=== PATIENT | female | born 1960 | race Caucasian/White ===

== ENCOUNTER → 2017-07-23 | Day surgery (SDC) | payer BC ==
[2017-07-17 13:11] VITALS: Ht 162.6 cm; Wt 142.7 kg
[~2017-07-23] VITALS: Ht 162.6 cm; Wt 142.7 kg
[~2017-07-23] MED LIST: ACET500C12 PO; ATEN-175 PO; CYAN100020 PO; ENOX120I SQ; FENTANYL CITRATE INJ 50 MCG/1 ML 2 ML VIAL ONE; FERR1TAB13 PO; FOLI1TAB8 PO; FRS/40 PO; GABA-113 PO; GLIP-199 PO; JANUVIA PO; LIDOCAINE HCL 2% 2 ML VIAL (20MG/ML) ONE; MIDAZOLAM HCL 1 MG/ML 2ML VIAL ONE; NYST80OI TOP; OMEP40CA41 PO; PROPOFOL IV EMULSION 10 MG/ML 20 ML VIAL IV ONE; RANI300T2 PO; SODIUM CHLORIDE 0.9% 500ML 500 ML IV ONE; WARF5TAB90 PO
--- NOTE | 2017-07-23 12:39 | Endo History and Physical ---
History & Physical Date of Service: Jul 23, 2017. Chief Complaint: Referring Physician: History of Present Illness LULU Past Medical History Diabetes, Gastrointestinal Disorder, Pulmonary Emboli, Reflux, Blood Dyscrasias , High Cholesterol, Hypertension, Thyroid Disease Past Surgical History Hx Cardiac Surgery: No Hx Internal Defibrillator: No Hx Pacemaker: No Hx Abdominal Surgery: No Hx Post-Op Nausea and Vomiting: No Hx Cancer Surgery: No Hx Thoracic Surgery: No Hx Orthopedic: Yes (RT CTR) Hx Urinary Tract Surgery: No Family History IBD Social History Smoking Status: Current Every Day Smoker Hx Substance Use: No Hx Alcohol Use: No Allergies Coded Allergies: Moxifloxacin (Verified Allergy, Intermediate, CHEST PAIN RAPID HEART BEAT HIGH BP RASH , 07/17/17) Penicillins (Verified Allergy, Intermediate, HIVES, 07/17/17) Sulfa Drugs (Verified Allergy, Intermediate, HIVES, 07/17/17) Doxycycline (Unverified Adverse Reaction, Intermediate, Pseudo tumor cerebri, 07/17/17) Neomycin (Verified Adverse Reaction, Unknown, ITCHY, 07/17/17) Prednisone (Verified Adverse Reaction, Unknown, TACHYCARDIA, 07/17/17) Uncoded Allergies: DECONGESTANTS (Adverse Reaction, Unknown, TACHYCARDIA, 06/22/15) Current Medications Reported Home Medications Medications Dose Route/Sig Max Daily Dose Days Date Category Dose Instructions Vitamin B12 (Cyanocobalamin) 1,000 Mcg Tab 1 Tab PO DAILY 07/17/17 Reported Nystatin (Nystatin (Topical)) 100,000 Unit/Gm Oin 1 Appln TOP TID PRN 07/17/17 Reported Lasix (Furosemide) 40 Mg Tab 40 Mg PO BID 07/17/17 Reported Coumadin (Warfarin Sodium) 5 Mg Tab 5 Mg PO HS 07/17/17 Reported Tenormin (Atenolol) 100 Mg Tab 50 Mg PO BID 07/17/17 Reported Glipizide Er (Glipizide) 10 Mg Tab 2 Tab PO BID 90 07/17/17 Reported Acetazolamide Er (Acetazolamide) 500 Mg Cap 1 Cap PO TID 07/17/17 Reported [Januvia] 1 Tab PO QAM 07/17/17 Reported UNSURE OF DOSE Folvite (Folic Acid) 1 Mg Tab 1 Mg PO QAM 07/17/17 Reported Zantac (Ranitidine HCl) 300 Mg Tab 300 Mg PO HS 07/17/17 Reported Prilosec (Omeprazole) 40 Mg Cap 40 Mg PO QAM 07/17/17 Reported Neurontin (Gabapentin) 300 Mg Cap 600 Mg PO HS 07/17/17 Reported Kp Ferrous Sulfate (Ferrous Sulfate) 325 Mg Tab 1 Tab PO BID 07/17/17 Reported Vital Signs Weight (Kilograms): 142.73 Height (Feet): 5 Height (Inches): 4 Physical Exam General Appearance: no apparent distress Respiratory/Chest: Auscultation: breath sounds normal Cardiovascular: Heart Auscultation: RRR Abdomen: Inspection & Palpation: soft, non-distended Assessment and Plan Stable for EGD
--- NOTE | 2017-07-23 13:46 | GI REPORT ---
Procedure Date: 07/23/2017 1:28 PM Procedure: Upper GI endoscopy Indications: Iron deficiency anemia Medicines: Monitored Anesthesia Care Complications: No immediate complications. Estimated Blood Loss: Estimated blood loss: none. Procedure: Pre-Anesthesia Assessment: - Prior to the procedure, a History and Physical was performed, and patient medications and allergies were reviewed. The patient is competent. The risks and benefits of the procedure and the sedation options and risks were discussed with the patient. All questions were answered and informed consent was obtained. Patient identification and proposed procedure were verified by the physician and the nurse in the procedure room. Mental Status Examination: alert and oriented. Airway Examination: normal oropharyngeal airway and neck mobility. Respiratory Examination: clear to auscultation. CV Examination: normal. ASA Grade Assessment: III - A patient with severe systemic disease. After reviewing the risks and benefits, the patient was deemed in satisfactory condition to undergo the procedure. The anesthesia plan was to use monitored anesthesia care (MAC). Immediately prior to administration of medications, the patient was re-assessed for adequacy to receive sedatives. The heart rate, respiratory rate, oxygen saturations, blood pressure, adequacy of pulmonary ventilation, and response to care were monitored throughout the procedure. The physical status of the patient was re-assessed after the procedure. After obtaining informed consent, the endoscope was passed under direct vision. Throughout the procedure, the patient's blood pressure, pulse, and oxygen saturations were monitored continuously. The scope was introduced through the mouth, and advanced to the second part of duodenum. The upper GI endoscopy was accomplished without difficulty. The patient tolerated the procedure well. Findings: The examined esophagus was normal. A few, small non-bleeding erosions were found in the gastric body and in the gastric antrum. There were no stigmata of recent bleeding. Biopsies were taken with a cold forceps for histology. Biopsies were taken with a cold forceps for Helicobacter pylori testing. Verification of patient identification for the specimen was done by the physician and nurse using the patient's name and date. The duodenal bulb and second portion of the duodenum were normal. Biopsies were taken with a cold forceps for histology. Impression: - Normal esophagus. - Non-bleeding erosive gastropathy. Biopsied. - Normal duodenal bulb and second portion of the duodenum. Biopsied. Recommendation: - Discharge patient to home. - Await pathology results. - Return to referring physician. Bruna Bonilla MD 07/23/2017 1:46:20 PM This report has been signed electronically. Note Initiated On: 07/23/2017 1:28 PM I attest to the content of the Intraoperative Record and orders documented therein, exceptions below
--- NOTE | 2017-07-23 14:18 | Discharge Instructions ---
Endoscopy Patient Instructions Date / Procedure(s) Performed Jul 23, 2017. EGD Allergy Information Coded Allergies: Moxifloxacin (Verified Allergy, Intermediate, CHEST PAIN RAPID HEART BEAT HIGH BP RASH , 07/23/17) Penicillins (Verified Allergy, Intermediate, HIVES, 07/23/17) Sulfa Drugs (Verified Allergy, Intermediate, HIVES, 07/23/17) Doxycycline (Unverified Adverse Reaction, Intermediate, Pseudo tumor cerebri, 07/23/17) Neomycin (Verified Adverse Reaction, Unknown, ITCHY, 07/23/17) Prednisone (Verified Adverse Reaction, Unknown, TACHYCARDIA, 07/23/17) Uncoded Allergies: DECONGESTANTS (Adverse Reaction, Unknown, TACHYCARDIA, 06/22/15) Discharge Date / Findings Jul 23, 2017. Gastritis Medication Instructions Stopped Medication(s): COUMADIN 07-17-17 BRIDGED WITH LOVENOX 100MG 07-22-17 Provider Instructions Activity Restrictions - No exercising or heavy lifting for 24 hours. - Do not drink alcohol the day of the procedure. - Do not drive a car or operate machinery until the day after the procedure. - Do not make any important decisions or sign important papers in 24 hours after the procedure. Following Day: - Return to full activity which may include returning to work/school. Diet Start your diet with liquids and light foods (jello, soup, juice, toast). Then eat your usual diet if not nauseated. Treatment For Common After Affects For mild abdominal pain, bloating, or excessive gas: - Rest - Eat lightly - Lie on right side Follow-Up Information Follow-up with DR ELLER as scheduled Anesthesia Information What You Should Know You have had a procedure that required some medicine to reduce anxiety and discomfort. This treatment is called moderate sedation. After receiving the treatment, you may be sleepy, but you will be able to breathe on your own. The effects of the treatment may last for several hours. Follow these instructions along with Activity/Diet recommendations noted above: * Do NOT do anything where dizziness or clumsiness would be dangerous. * Rest quietly at home today, then you can be up and about tomorrow. * Have a responsible person stay with you the rest of today. * You may have had an I.V. today. If so, you may take the dressing off later today. Recommendations Call your doctor if: * Trouble breathing * Continuous vomiting for more than 24 hours * Temperature above 101 degrees * Severe abdominal pain or bloating * Pain not relieved by pain medicine ordered * There is increased drainage or redness from any incision * A large amount of rectal bleeding greater than 2-3 tablespoons. (If you had a polyp/s removed or have hemorrhoids, a small amount of blood - from the rectum is to be expected.) * You have any unanswered questions or concerns. IN THE EVENT OF A SERIOUS EMERGENCY, GO TO THE NEAREST EMERGENCY ROOM Your discharge instructions were prepared by provider Bruna Bonilla. Patient Instructions Signature Page Kathryn Lee Patient (or Guardian) Signature/Date: I have read and understand the instructions given to me by my caregivers. Caregiver/RN/Doctor Signature/Date: The above-named patient and/or guardian has received patient instructions on this date. + Original Patient Signature Page (only) stays with chart. Please make copy for patient.
--- NOTE | 2017-07-23 14:40 | Anesthesiology Progress Note ---
Anesthesia Post Op Note Date & Time Jul 23, 2017 at 14:39 Vital Signs Pain Intensity: 0 Vital Signs Past 12 Hours Date Time Temp Pulse Resp B/P (MAP) Pulse Ox O2 Delivery O2 Flow Rate FiO2 07/23/17 14:24 77 16 139/76 (97) 94 Room Air 07/23/17 12:56 36.5 72 18 144/81 (102) 95 Room Air Notes Mental Status: alert / awake / arousable, participated in evaluation Pt Amnestic to Procedure: Yes Nausea / Vomiting: adequately controlled Pain: adequately controlled Airway Patency, RR, SpO2: stable & adequate BP & HR: stable & adequate Hydration State: stable & adequate Anesthetic Complications: no major complications apparent
[2017-07-23 14:56] VITALS: BP 132/49; PULSE 71; O2SAT 92
== END | disposition home or self-care (01) ==
LOC: C.GI 11:34
PROVIDERS: ATTEND Student in an Organized Health Care Education/Training Program
DX: D50.9 Iron deficiency anemia, unspecified (principal); K29.50 Unspecified chronic gastritis without bleeding; K31.9 Disease of stomach and duodenum, unspecified; I10 Essential (primary) hypertension; E66.01 Morbid (severe) obesity due to excess calories; F17.200 Nicotine dependence, unspecified, uncomplicated; E11.9 Type 2 diabetes mellitus without complications; K21.9 Gastro-esophageal reflux disease without esophagitis; Z79.01 Long term (current) use of anticoagulants; Z86.711 Personal history of pulmonary embolism

== ENCOUNTER → 2018-02-10 | Outpatient (CLI) | payer BC ==
[~2018-02-10] MED LIST changes: -FENTANYL CITRATE INJ 50 MCG/1 ML 2 ML VIAL ONE; -LIDOCAINE HCL 2% 2 ML VIAL (20MG/ML) ONE; -MIDAZOLAM HCL 1 MG/ML 2ML VIAL ONE; -PROPOFOL IV EMULSION 10 MG/ML 20 ML VIAL IV ONE; -SODIUM CHLORIDE 0.9% 500ML 500 ML IV ONE
--- NOTE | 2018-02-11 06:41 | PAP/PSG TECHNICIAN REPORT ---
[facility] Enrober Tender Polysomnogram Report Study name: None Report date: 02/11/2018 Study date: 02/10/2018 Referring Physician: Dr. Damon Name: VIC LEE Interpreting Physician: Tali Damon M.D. Date of : 1960 Enrober Tender: Cecil Casas RPSGT. Sex: Female Age: 57 StudyType: PSG Weight: 307 lbs 17 inches Height: 57 years, Height 5' 4.5" Neck Circum: BMI: 51.88 Medications: JANUVIA 100 MG, TRAZODONE 50 MG, LASIX 40 MG, GLUCOTROL 10 MG, PRILOSEC 40 MG, RANITIDINE HCL 300 MG, FOLIC ACID 800 MCG, TENORMIN 100 MG, COUMADIN 5 MG, Patient History PATIENT HAS HISTORY OF HTN, WITNESSED APNEAS, DAYTIME SLEEPINESS AND IRREGULAR SLEEP SCHEDULE. SHE GENERALLY DOESN'T FALL ASLEEP UNTIL 3 IN THE MORNING. SHE TAKES NAPS EVERY AFTERNOON. SHE IS HERE FOR AN EVALUATION FOR FÉLIX. ESS = 10 RM 6 Parameters Monitored NPSG: E1-M2, E2-M1, Fp1-M2, Fp2-M1, F3-M2, F4-M2, F4-M1, C3-M2, C4-M2, C4-M1, O1-M2, O2-M2, O2-M1, T3-M2, T4-M1, P3-M2, P4-M1, CHIN1, CHIN2, HR, EKG, Legs, PFLOW, SNOR, FLOW, CFLOW, Tidal Volume, THOR, ABDO, SpO2, PLTH, CPRESS, ETCO2 Wave, ETCO2, pH Sleep Architecture Sleep Stages Time at Lights Off 10:51:50 PM STAGES Time (min.) TST (%) Time at Lights On 5:37:50 AM Wake 274.5 -- Total Recording Time (TRT) 407.00 min. N1 16.5 13 Total Sleep Period (TSP) 288.5 min. N2 44.5 34 Total Sleep Time (TST) 131.5min. N3 47.5 36 Awake Time 275.5 min. REM 23.0 17 Wake after Sleep Onset 158.5 min. Sleep Efficiency (SE) 32 % Sleep Onset Latency (PRIMO) 116.0 min. Number of Stage 1 Shifts None Awakenings 22 Stage Changes 58 Number of REM periods 1 REM 23.0 17 REM Latency 217.0 min. NREM 108.5 83 Body Position Analysis Supine Right Left Side Prone Vertical Total Sleep Time (min.) 374.6 0.0 9.5 9.50 0.0 0.0 Total Sleep Time (%) 93% 0% 7% 7 0% N/A% Total Sleep Time REM (min.) 23.0 0.0 0.0 None 0.0 0.0 Total Sleep Time NREM (min.) 99.0 0.0 9.5 None 0.0 0.0 Intermittent Wake (min.) 252.6 0.0 21.9 None 0.0 0.0 Total Sleep Period (%) 89% None None None None None Arousals Myoclonus (PLM) * Events Count Index Events Count Index Spontaneous 18 8 Events Awake (PLMW) 243 53.1 Respiratory 6 2.7 Events Asleep w/ Arousal (PLMA) 8 3.7 PLM 8 4 Events Asleep w/o Arousal (PLMS) 16 7.3 Snoring 1 0 Total Asleep 24 11.0 Total 33 15 Total 267 39 Respiratory Analysis * CA OA MA CH H RERA Total Count 0 0 0 0 99 1 99 Index 0.0 0.0 0.0 0 45.2 0 45.6 Mean Duration 0.0 0.0 0.0 0.00 15.0 11.9 15.0 Longest Duration 0.0 0.0 0.0 0.00 0.0 11.9 23.4 Respiratory Event Summary Total Supine ~Supine Right Left Prone REM NREM Apneas Count 0 0 0 N/A 0 N/A 0 0 Index 0.0 0 0 N/A 0.0 N/A 0 0 Hypopneas (4% Desat) Count 99 96 3 N/A 3 N/A 29 70 Index 45.2 47.2 19 N/A 18.9 N/A 75.7 38.7 Apneas & All Hypopneas Count 99 96 3 N/A 3 N/A 29 70 Index 45.2 47 19 N/A 19 N/A 75.7 38.7 Respiratory Events (Shoe Packer+All Hyp+RERA) Count 99 96 4 N/A 4 N/A 29 70 Index 45.6 47 25 N/A 25.3 N/A 75.7 39.3 Respiratory Related Arousal Count 6 96 2 N/A 2 N/A 0 6 Index 2.7 2 13 N/A 13 N/A 0 3 Snoring Analysis Supine Right Left Prone REM NREM Total Snore duration 0.6 min Snores count 19 N/A 1 N/A 2 18 20 Snore mean duration 1.8 Sec Snores index 9 N/A 6 N/A 5.2 10.0 9.1 TST with snoring (%) 0.4% SpO2 Analysis Total REM NREM Awake <50% 0.0 min. 0.0 min. 0.0 min. 0.0 min. 51 - 60% 0.0 min. 0.0 min. 0.0 min. 0.0 min. 61 - 70% 0.5 min. 0.5 min. 0.0 min. 0.0 min. 71 - 80% 33.4 min. 21.2 min. 5.9 min. 6.3 min. 81 - 90% 337.0 min. 1.3 min. 101.0 min. 234.7 min. 91 - 100% 2.9 min. 0.0 min. 0.0 min. 2.9 min. Average 84 75 83 85 Minimum SpO2 69 69 76 73 Desaturation Event Index 26.2 80.9 44.2 14.9 # Desat. Events below 89% 177 31 79 67 Time(%) with Saturation below 89% 96.3 6.2 28.6 61.6 Time(min.) with Saturation below 89% 360.1 23.0 106.9 230.2 Heart Rate Analysis End Tidal CO2 Analysis Min (bpm) Max (bpm) Average (bpm) TSP (mins) % of TSP Awake 34 127 72 Above 55 mmHg 0.0 0.0 NREM 55 127 64 50-55 mmHg 0.2 0.1 REM 59 74 67 45-50 mmHg 0.9 0.7 Overall 55 127 65 40-45 mmHg 20.8 15.8 35-40 mmHg 67.1 51.0 30-35 mmHg 33.9 25.8 Average ETCO2 0.2 Supplemental O2 Values Minimum O2 level: None Value Start Time End Time Enrober Tender Comments Mrs. Lee slept in the left and supine positions. No cardiac arrhythmia noted. Leg movements noted. No bruxism noted. Snoring was noted and scored as a 2 on a scale of 1 through 5. (0=no snoring, 5=snoring loud enough to be heard through a closed door or down the rice way) Mrs. Lee awoke to use the restroom 3 times during the night. Mrs. Lee stated I did not sleep as well as I do when I am in my own bed. The final report will be interpreted and signed by a sleep physician. The completed physician report will then be placed in the patient medical record. Therapy (cm H2O) 0 TIB (min.) 406.0 TST (min.) 131.5 Sleep Onset (min.) 116.0 REM Onset From Sleep (min.) 217.0 Sleep Efficiency % 32 Wakefulness (%) 68 Wakefulness (min.) 275.5 NREM 1 (%) 13 NREM 1 (min.) 16.5 NREM 2 (%) 34 NREM 2 (min.) 44.5 NREM 3 (%) 36 NREM 3 (min.) 47.5 REM (%) 17 REM (min.) 23.0 # Arousals 33 Arousal Index 15 # Snore 20 Snore Index 9.1 AHI 45.2 AHI Supine 47 AHI Non-Supine 19 NREM AHI 38.7 REM AHI 75.7 RDI 45.6 # Obstructive Apnea 0 # Central Apnea 0 # Mixed Apnea 0 # Hypopneas 99 RERAs 1 Total Respiratory Events 101 Time Below SpO2 89% (min.) 129.9 Mean NREM SpO2 (%) 83 Mean REM SpO2 (%) 75 Mean Sleep SpO2 (%) 82 Min NREM SpO2 (%) 76 Min REM SpO2 (%) 69 Position Supine (min.) 374.6 Position Non-supine (min.) 9.5 LM Index Sleep 11.0 LM Index NREM 11.6 LM Index REM 7.8 Mean Heart Rate (bpm) 65 Min Heart Rate (bpm) 55
== END | disposition home or self-care (01) ==
LOC: C.NEUR 21:00
PROVIDERS: ATTEND Internal Medicine
DX: G47.33 Obstructive sleep apnea (adult) (pediatric) (principal)

== ENCOUNTER 2018-12-10 16:23 | Inpatient (IN) ==
--- OUTSIDE RECORDS SUMMARY | 2018-12-10 16:25 | External Medical Summary | Continuity of Care Document ---
:1960 Author Name Lisa Krause, Provider Address Unavailable Unavailable , Care Team Providers Name Role Phone Nica Krause, Deshawn Unavailable [email or web address] Active medical history not documented Allergies and Adverse Reactions Allergy history not documented Medications Medications not documented Procedures Procedures not documented Immunizations Immunizations not documented Plan of Treatment Planned Observations Planned Goals not documented Results No Known Results Results not documented
[2018-12-10] MEDS ORDERED: ASPIRIN CHEW 324 MG PO STA (16:50)
[2018-12-10] MEDS ORDERED: SODIUM CHLORIDE 0.9% 1000ML 1,000 ML IV SCH (17:00)
--- NOTE | 2018-12-10 17:16 | XRay Report ---
XR chest 1V portable CLINICAL HISTORY: 58 years-old Female presenting with CVA Sx, dizziness and left-sided immobility. TECHNIQUE: Portable upright AP view of the chest was obtained. COMPARISON: 09/09/2009. FINDINGS: Atherosclerosis of the aortic arch. Cardiac silhouette normal in size. Mildly coarsened lung markings . Mild pulmonary vascular prominence. No focal lung opacity. No large effusion or pneumothorax. Bradshaw us structures normal. Upper abdomen normal. IMPRESSION: 1. Mild volume overload and mild congestive change suggested. No gee pulmonary edema. Electronically signed by: Raman Ly M.D. 12/10/2018 5:15 PM
[2018-12-10 17:42] LABS: Alanine Aminotransferase 22 U/L (12-78); Albumin Level 3.5 gm/dl (3.4-5.0); Alkaline Phosphatase 84 U/L (45-117); Aspartate Aminotransferase 19 U/L (15-37); BUN Creatinine Ratio 10.5 (10-20); Bilirubin,Total 0.9 mg/dl (0.2-1); Blood Urea Nitrogen 9 mg/dl (7-18); Calcium 8.8 mg/dl (8.5-10.1); Carbon Dioxide 27 mmol/L (21-32); Chloride 108 mmol/L (98-107); Creatinine Clr Calc Pharmacy 97.6 ml/min; Est GFR (African American) 92.1; Est GFR (Non-African American) 79.4; Globulin 3.6 gm/dl (2.5-4.0); Glucose 144 mg/dl (70-99); Potassium 3.2 mmol/L (3.5-5.1); Sodium 140 mmol/L (136-145); Total Protein 7.1 gm/dl (6.4-8.2); Troponin I < 0.015 ng/ml (0-0.045)
[2018-12-10 17:48] LABS: Hematocrit (blood only) 51.3 % (37-47); Hemoglobin 18.4 g/dL (12.0-16.0); Mean Corpuscular Hgb Conc 35.9 g/dL (32-36); Mean Corpuscular Volume 88.9 fL (80-100); Mean Platelet Volume 10.9 fL (7.4-10.4); Platelet Count 98 K/uL (130-400); RDW Coefficient of Variation 13.7 % (11.5-14.5); RDW Standard Deviation 44.2 fL (36.4-46.3); Red Blood Count 5.77 M/uL (4.2-5.4); White Blood Count 5.69 K/uL (4.8-10.8)
[2018-12-10 17:50] LABS: Basophils # (auto) 0.01 K/uL (0-0.2); Basophils % (auto) 0.2 %; Eosinophils # (auto) 0.05 K/uL (0-0.5); Eosinophils % (auto) 0.9 %; Immature Granulocytes # (auto) 0.02 K/uL (0.00-0.02); Immature Granulocytes % (auto) 0.4 %; Lymphocytes % (auto) 17.6 %; Monocytes # (auto) 0.25 K/uL (0.11-0.59); Monocytes % (auto) 4.4 %; Neutrophils # (auto) 4.36 K/uL (1.4-6.5); Neutrophils % (auto) 76.5 %
[2018-12-10] MEDS ORDERED: OPTIRAY 320 125ml IV PRN (18:10)
--- NOTE | 2018-12-10 18:19 | CT Scan Report ---
CT OF THE HEAD WITHOUT CONTRAST CLINICAL HISTORY: Stroke evaluation COMPARISON STUDY: Head CT March 27, 2011. TECHNIQUE: Helical axial images of the head were obtained without IV contrast. Automated exposure con trol was utilized for the study. A dose lowering technique was utilized adhering to the principles o f ALARA. FINDINGS: No acute intracranial hemorrhage, midline shift or mass effect is present. The ventricular system is unremarkable. The basilar cisterns are patent. No extra-axial collections are present. Ther e are no findings to suggest acute dural sinus thrombosis or acute territorial infarct. No significan t calvarial abnormalities are present. Visualized portions of the sinuses and mastoid air cells are c lear. IMPRESSION: No acute intracranial findings. Electronically signed by: Da Gregory M.D. 12/10/2018 6:18 PM
--- NOTE | 2018-12-10 18:30 | CT Scan Report ---
CT angio neck with con CLINICAL HISTORY: 58 years-old Female presenting with stuttering cva sx. TECHNIQUE: Multidetector CT angiography of the neck was performed after the administration of intrave nous contrast. 3-D volumetric and/or maximum intensity projection (MIP) images were subsequently jameson nstructed for review. IV contrast: 119 mL of Optiray 320. One or more dose lowering techniques were u sed consistent with the principles of ALARA (as low as reasonably achievable), including automatic ex posure control, mA or kV adjustment to individual patient size, and/or use of iterative reconstructio n. Stenosis measurements were based on NASCET-like criteria (distal lumen diameter as the denominator for stenosis measurement). COMPARISON: None. CT DOSE (mGy.cm): The estimated cumulative dose is 1141.87 mGy.cm. FINDINGS: Safety Attendant topogram: Unremarkable. Aortic arch: Atherosclerosis of the three-vessel aortic arch with patent origins of the branch vessel s. Innominate artery: Mild stenosis of the origin of the right innominate artery. Right subclavian artery: Patent. Right common carotid artery: Patent. Right internal and external carotid arteries: Calcified atherosclerotic plaque at the carotid bifurca tion. This results in approximately 50% stenosis of the origin of the right external carotid artery. No significant stenosis of the origin or course of the right internal carotid artery. Left common carotid artery: Mild atherosclerotic plaque at the distal course without significant sten osis. Left internal and external carotid arteries: Calcified and noncalcified atherosclerotic plaque at the carotid bifurcation. This results in approximately 50% stenosis of the origin of the left external c arotid artery with the remainder of the left ECA course widely patent. There is approximately 25% shakila nosis of the origin and proximal portion of the left internal carotid artery due to calcified and non calcified atherosclerotic plaque. Left subclavian artery: Atherosclerotic plaque along the proximal course with less than 25% stenosis. Vertebral arteries: Codominant vertebral arteries. Origins and courses of the bilateral vertebral art eries patent. Other: Limited intracranial evaluation within normal limits. Soft tissues of the neck normal allowing for the phase of contrast. Normal cervical spine. Lung apices clear. IMPRESSION: 1. Atherosclerotic plaque results in approximately 50% stenosis of the origins of the bilateral ECAs . This is unlikely to be of clinical concern. 2. No significant stenosis of the origin or course of the right ICA. 3. Approximately 25% stenosis of the origin of the left ICA. This is unlikely to be hemodynamically significant. 4. No dissection or focal vessel occlusion. Electronically signed by: Raman Ly M.D. 12/10/2018 6:28 PM
--- NOTE | 2018-12-10 18:30 | CT Scan Report ---
CT angio head w con CLINICAL HISTORY: 58 years-old Female presenting with stuttering cva sx. TECHNIQUE: Multidetector CT angiography of the head was performed after the administration of intrave nous contrast. 3-D volumetric and/or maximum intensity projection (MIP) images were subsequently jameson nstructed for review. IV contrast: 119 mL of Optiray 320. One or more dose lowering techniques were u sed consistent with the principles of ALARA (as low as reasonably achievable), including automatic ex posure control, mA or kV adjustment to individual patient size, and/or use of iterative reconstructio n. COMPARISON: None. CT DOSE (mGy.cm): The estimated cumulative dose is 1141.87. FINDINGS: Colon Therapist topogram: Unremarkable. Anterior circulation: Atherosclerosis of the cavernous segments of the internal carotid arteries. Int racranial portions of the internal carotid arteries patent to the level of the termini. Anterior cere bral arteries patent. Middle cerebral arteries patent. Anterior communicating artery patent. Posterior circulation: Codominant vertebral arteries. Intradural portions of the vertebral arteries p atent. Posterior inferior cerebellar arteries patent. Basilar artery patent. Anterior inferior cerebe llar arteries poorly visualized. Superior cerebellar arteries patent. Posterior cerebral arteries pat ent. Posterior communicating arteries are hypoplastic or aplastic. Dural venous sinuses: Patent. Other: Allowing for the phase of contrast, brain parenchyma within normal limits. Calvarium intact. IMPRESSION: 1. No evidence of aneurysm, focal vessel occlusion, or significant stenosis of the intracranial tianna francois. Electronically signed by: Raman Ly M.D. 12/10/2018 6:29 PM
[2018-12-10 19:14] LABS: INR 2.1 (0.9-1.1); Partial Thromboplastin Ratio 1.5; Partial Thromboplastin Time 39.6 Seconds (21.0-31.0); Prothrombin Time 20.8 Seconds (9.0-12.0)
--- NOTE | 2018-12-10 20:08 | Emergency Department Note ---
Entered by Reg Henderson acting as a scribe for Gina Browne MD History of Present Illness General Chief complaint: Stroke/CVA Symptoms Stated complaint: STROKE SX Source: patient History of Present Illness Onset (ago): hour(s) (this morning at 11:00) Location: left (arm and leg) Pain Consistency: + intermittent Quality: + other (left sided weakness) Associated symptoms: + other (speech difficulties, dizziness, nausea) The patient is a 58 year old female who presents to the Emergency Room with complaints of intermittent left upper and left lower extremity weakness. The patient reports that this morning at 11:00, she developed left arm and leg weakness along with dizziness and nausea. She states that this resolved but returned at 13:00 and persisted until EMS arrived, by which time her symptoms had all resolved. The patient reports that 4 days ago she developed a similar episode of left-sided weakness that only lasted a few minutes. She states that today she has also had some difficulties with speech. She states that she is on warfarin for a clotting disorder but does not take aspirin. Her last INR was 1.9. She states that she smokes 1.5 packs of cigarettes daily. Home Medications Home Medications Medication Instructions Recorded Confirmed Type Januvia 100 mg PO DAILY 12/10/18 12/10/18 History acetazolamide 500 mg PO DAILY 12/10/18 12/10/18 History amlodipine 2.5 mg PO .DAILY IN AFTERNOON 12/10/18 12/10/18 History atenolol 50 mg PO BID 12/10/18 12/10/18 History cyanocobalamin (vitamin B-12) 1,000 mcg PO DAILY 12/10/18 12/10/18 History folic acid 1 mg PO DAILY 12/10/18 12/10/18 History furosemide 40 mg PO BID 12/10/18 12/10/18 History nystatin 1 applic TOPICAL BID PRN 12/10/18 12/10/18 History omeprazole 40 mg PO QAM 12/10/18 12/10/18 History ranitidine HCl 300 mg PO HS 12/10/18 12/10/18 History warfarin 2.5 mg PO .ONCE WEEKLY 12/10/18 12/10/18 History warfarin 5 mg PO [id number] 12/10/18 12/10/18 History aspirin [Ecotrin Low Strength] 81 mg PO QAM 30 Days #30 tab 12/12/18 Rx atorvastatin 40 mg PO QAM 40 Days #40 tab 12/12/18 Rx Allergies Allergy/AdvReac Type Severity Reaction Status Date / Time moxifloxacin Allergy Intermediate CHEST PAIN Verified 12/10/18 19:03 RAPID HEART BEAT HIGH BP RASH Penicillins Allergy Intermediate HIVES Verified 12/10/18 19:03 Sulfa (Sulfonamide Allergy Intermediate HIVES Verified 12/10/18 19:03 Antibiotics) doxycycline AdvReac Intermediate Pseudo Unverified 12/10/18 19:03 tumor cerebri neomycin AdvReac Unknown ITCHY Verified 12/10/18 19:03 prednisone AdvReac Unknown TACHYCARDIA Verified 12/10/18 19:04 DECONGESTANTS AdvReac Unknown TACHYCARDIA Uncoded 12/10/18 19:04 Past Med/Surg History Medical History Sleep apnea (Chronic) Tobacco use (Chronic) Pulmonary hypertension (Chronic) MTHFR gene mutation (Chronic) Pseudotumor cerebri (Chronic) History of pulmonary embolism (Chronic) Dyslipidemia (Chronic) Diabetes mellitus, type II (Chronic) Hypertension (Chronic) Surgical History History of carpal tunnel surgery (Chronic) Family History Other Diabetes Hypertension Social History Preferred Language: Slovak Communication Ability: Effective Spool 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 and A total of 10 systems reviewed and were otherwise negative Physical Exam Vital Signs Vital Signs - 24 hr 12/10/18 16:34 12/10/18 16:37 12/10/18 16:50 Temperature 36.5 C Temperature Source Oral Sepsis Recent Fever Within 48 Hours No Sepsis New/Unexplained Change in Mental Status No Sepsis Action Taken by Nursing No Action Required Pulse Rate 72 70 72 Pulse Rate from SpO2 Sensor 72 72 Pulse Rhythm Respiratory Rate 12 16 22 Respiratory Effort / Characteristics Non-Labored Spontaneous Respiratory Depth Normal Respiratory Pattern Regular Blood Pressure 151/71 H 151/71 H Blood Pressure Mean 97 97 Pulse Oximetry 94 94 93 Oxygen Delivery Method Room Air 12/10/18 16:55 12/10/18 16:56 12/10/18 17:05 Temperature Temperature Source Sepsis Recent Fever Within 48 Hours Sepsis New/Unexplained Change in Mental Status Sepsis Action Taken by Nursing Pulse Rate 70 74 Pulse Rate from SpO2 Sensor 73 Pulse Rhythm Regular Respiratory Rate 18 15 Respiratory Effort / Characteristics Respiratory Depth Respiratory Pattern Blood Pressure Blood Pressure Mean Pulse Oximetry 91 92 92 Oxygen Delivery Method Room Air Room Air 12/10/18 17:06 12/10/18 17:08 12/10/18 17:31 Temperature Temperature Source Sepsis Recent Fever Within 48 Hours Sepsis New/Unexplained Change in Mental Status Sepsis Action Taken by Nursing Pulse Rate 72 71 71 Pulse Rate from SpO2 Sensor 72 72 72 Pulse Rhythm Respiratory Rate 18 27 H 14 Respiratory Effort / Characteristics Respiratory Depth Respiratory Pattern Blood Pressure 171/81 H 152/74 H Blood Pressure Mean 111 100 Pulse Oximetry 92 92 92 Oxygen Delivery Method 12/10/18 18:00 12/10/18 18:01 12/10/18 19:00 Temperature Temperature Source Sepsis Recent Fever Within 48 Hours Sepsis New/Unexplained Change in Mental Status Sepsis Action Taken by Nursing Pulse Rate 73 73 76 Pulse Rate from SpO2 Sensor 73 72 75 Pulse Rhythm Respiratory Rate 25 H 11 L 20 Respiratory Effort / Characteristics Respiratory Depth Respiratory Pattern Blood Pressure 163/73 H 157/76 H Blood Pressure Mean 103 103 Pulse Oximetry 92 93 92 Oxygen Delivery Method Room Air 12/10/18 19:30 12/10/18 19:41 Temperature Temperature Source Sepsis Recent Fever Within 48 Hours Sepsis New/Unexplained Change in Mental Status Sepsis Action Taken by Nursing Pulse Rate 76 77 Pulse Rate from SpO2 Sensor 75 77 Pulse Rhythm Respiratory Rate 21 16 Respiratory Effort / Characteristics Respiratory Depth Respiratory Pattern Blood Pressure 186/73 H Blood Pressure Mean 110 Pulse Oximetry 90 95 Oxygen Delivery Method Room Air Vital signs reviewed. General: Well-appearing female, in no significant distress. Smells of tobacco. HEENT: No scleral icterus, PERRLA, neck supple. Atraumatic. Cardiovascular: Regular rate and rhythm, no extra sounds. Pulmonary: Clear to auscultation bilaterally, normal work of breathing. Abdomen: Obese. Soft, nontender, nondistended, positive bowel sounds. Musculoskeletal: Atraumatic, no peripheral edema. Neurologic: Patient awake alert and oriented x 3, equal strength in all 4 extremities. Equal box spinner strength. Cranial nerves 2 through 12 grossly intact. [id number] intact. No pronator drift. Skin: Warm, dry, no rash Course 1646: The patient was evaluated in room B4A. A complete history and physical examination were performed. 1901: I consulted Meghana Urbina, ERIK: [facility] Hospitalist. The patient will be reevaluated for hospitalization under Dr. Torres. Administered Medications Discontinued Medications Acetazolamide (Diamox Sequels) 500 mg PO DAILY [facility] Stop: 01/10/19 08:59 Last Admin: 12/12/18 08:15 Dose: 500 mg Documented by: [id number] Admin: 12/10/18 22:48 Dose: 500 mg Documented by: [id number] Amlodipine Besylate (Norvasc) 2.5 mg PO DAILY@1400 [facility] Stop: 01/09/19 21:23 Last Admin: 12/12/18 13:35 Dose: 2.5 mg Documented by: [id number] Admin: 12/11/18 13:43 Dose: 2.5 mg Documented by: [id number] Admin: 12/10/18 22:47 Dose: 2.5 mg Documented by: [id number] Aspirin (Aspirin) 324 mg PO NOW [facility] Stop: 12/10/18 16:51 Last Admin: 12/10/18 17:38 Dose: 324 mg Documented by: [id number] [facility]rin [facility]ab) [facility] Stop: 01/10/19 08:59 Last Admin: 12/12/18 08:15 Dose: 81 mg Documented by: [id number] Admin: 12/11/18 08:04 Dose: 81 mg Documented by: [id number] Atenolol (Tenormin) 50 mg PO BID [facility] Stop: 01/09/19 21:23 Last Admin: 12/12/18 08:15 Dose: 50 mg Documented by: [id number] Admin: 12/11/18 20:46 Dose: 50 mg Documented by: [id number] Admin: 12/11/18 08:04 Dose: 50 mg Documented by: [id number] Admin: 12/10/18 22:46 Dose: 50 mg Documented by: [id number] Atorvastatin Calcium (Lipitor) [facility] Stop: 01/10/19 08:59 Last Admin: 12/11/18 08:04 Dose: 10 mg Documented by: [id number] Atorvastatin Calcium (Lipitor) 40 mg PO QAM [facility] Stop: 01/11/19 08:59 Last Admin: 12/12/18 08:15 Dose: 40 mg Documented by: [id number] Cyanocobalamin (Vitamin B-12) 1,000 mcg PO DAILY [facility] Stop: 01/10/19 08:59 Last Admin: 12/12/18 08:15 Dose: 1,000 mcg Documented by: [id number] Admin: 12/11/18 08:04 Dose: 1,000 mcg Documented by: [id number] Folic Acid (Folvite) 1 mg PO DAILY [facility] Stop: 01/10/19 08:59 Last Admin: 12/12/18 08:15 Dose: 1 mg Documented by: [id number] Admin: 12/11/18 08:04 Dose: 1 mg Documented by: [id number] Furosemide (Lasix) 40 mg PO BID [facility] Stop: 01/09/19 21:23 Last Admin: 12/12/18 08:15 Dose: 40 mg Documented by: [id number] Admin: 12/11/18 20:47 Dose: 40 mg Documented by: [id number] Admin: 12/11/18 08:04 Dose: 40 mg Documented by: [id number] Admin: 12/10/18 22:45 Dose: 40 mg Documented by: [id number] Gadobutrol (Gadavist 65ml) 11.5 ml IV ONCE PRN PRN Reason: Interaction Checking Stop: 12/15/18 12:40 Last Admin: 12/11/18 12:42 Dose: 11.5 ml Documented by: [id number] Sodium Chloride (Nss 1000ml) 1,000 mls @ 100 mls/hr IV .Q10H [facility] Stop: 01/09/19 16:59 Last Infusion: 12/10/18 21:09 Dose: 0 mls/hr Documented by: [id number] Admin: 12/10/18 17:40 Dose: 100 mls/hr Documented by: [id number] Insulin Aspart (Novolog Flexpen) 0 units SC ACHS [facility] Stop: 01/09/19 21:23 Last Admin: 12/12/18 11:59 Dose: 4 units Documented by: [id number] Cosigned by: [id number] Admin: 12/12/18 08:16 Dose: 3 units Documented by: [id number] Cosigned by: [id number] Admin: 12/11/18 20:35 Dose: Not Given Documented by: [id number] Cosigned by: [id number] Admin: 12/11/18 17:34 Dose: 4 units Documented by: [id number] Cosigned by: [id number] Admin: 12/11/18 13:44 Dose: 3 units Documented by: [id number] Cosigned by: [id number] Admin: 12/11/18 08:04 Dose: Not Given Documented by: [id number] Cosigned by: [id number] Admin: 12/10/18 22:43 Dose: Not Given Documented by: [id number] Cosigned by: [id number] Ioversol (Optiray 320 125ml) 119 ml IV ONCE PRN PRN Reason: Interaction Checking Stop: 12/14/18 18:09 Last Admin: 12/10/18 18:10 Dose: 1 ml Documented by: [id number] Miscellaneous Information (Discharge, Stroke Patient) 1 ea N/A NOW [facility] Stop: 12/12/18 15:59 Last Admin: 12/12/18 16:27 Dose: 1 ea Documented by: [id number] Pantoprazole Sodium (Protonix) 40 mg PO QAM [facility] Stop: 01/10/19 08:59 Last Admin: 12/12/18 08:15 Dose: 40 mg Documented by: [id number] Admin: 12/11/18 08:04 Dose: 40 mg Documented by: [id number] Potassium Chloride (Klor-Con M20) 40 meq PO NOW [facility] Stop: 12/10/18 20:18 Last Admin: 12/10/18 21:05 Dose: 40 meq Documented by: [id number] Potassium Chloride (Klor-Con M10) 40 meq PO NOW [facility] Stop: 12/11/18 05:23 Last Admin: 12/11/18 06:01 Dose: 40 meq Documented by: [id number] Ranitidine HCl (Zantac) 300 mg PO [facility] Stop: 01/09/19 21:23 Last Admin: 12/11/18 20:45 Dose: 300 mg Documented by: [id number] Admin: 12/10/18 22:46 Dose: 300 mg Documented by: [id number] Warfarin Sodium (Coumadin) 5 mg PO [id number]@1600 [facility] Stop: 01/09/19 21:23 Last Admin: 12/12/18 15:59 Dose: 5 mg Documented by: [id number] Admin: 12/11/18 15:36 Dose: 5 mg Documented by: [id number] Admin: 12/10/18 22:47 Dose: 5 mg Documented by: [id number] Medical Decision Making Differential Diagnosis Differential Diagnosis includes but is not limited to ischemic stroke, hemor rhagic stroke, bells palsy, mass, neoplasm, migraine headache, seizure, subarachnoid hemorrhage, TIA, and transient global amnesia. Medical Records Attestation: I reviewed the patient's medical records. Home Medications Current Medication List: was personally reviewed by me Laboratory Data Attestation: I reviewed the patient's lab results. Result diagrams: 12/12/18 06:05 12/12/18 06:05 Lab Results 12/10/18 12/10/18 12/10/18 Range/Units 16:50 16:50 16:50 WBC 5.69 (4.8-10.8) K/uL RBC 5.77 H (4.2-5.4) M/uL Hgb 18.4 H (12.0-16.0) g/dL Hct 51.3 H (37-47) % MCV 88.9 (80-100) fL MCH 31.9 (25-34) pg MCHC 35.9 (32-36) g/dL RDW Std Deviation 44.2 (36.4-46.3) fL RDW Coeff of Teodoro 13.7 (11.5-14.5) % Plt Count 98 L (130-400) K/uL MPV 10.9 H (7.4-10.4) fL Immature Gran % (Auto) 0.4 % Neut % (Auto) 76.5 % Lymph % (Auto) 17.6 % [place] % (Auto) 4.4 % Eos % (Auto) 0.9 % Baso % (Auto) 0.2 % Immature Gran # (Auto) 0.02 (0.00-0.02) K/uL Neut # (Auto) 4.36 (1.4-6.5) K/uL Lymph # (Auto) 1.00 L (1.2-3.4) K/uL [place] # (Auto) 0.25 (0.11-0.59) K/uL Eos # (Auto) 0.05 (0-0.5) K/uL Baso # (Auto) 0.01 (0-0.2) K/uL PT Cancelled INR Cancelled APTT Cancelled PTT Ratio Cancelled Sodium 140 (136-145) mmol/L Potassium 3.2 L (3.5-5.1) mmol/L Chloride 108 H (98-107) mmol/L Carbon Dioxide 27 (21-32) mmol/L Anion Gap 5.0 (3-11) BUN 9 (7-18) mg/dl Creatinine 0.82 (0.6-1.2) mg/dl Est Cr Clr Drug Dosing 97.6 ml/min Est GFR ( Amer) 92.1 Est GFR (Non-Af Amer) 79.4 BUN/Creatinine Ratio 10.5 (10-20) Glucose 144 H (70-99) mg/dl Calcium 8.8 (8.5-10.1) mg/dl Magnesium 2.0 (1.8-2.4) mg/dl Total Bilirubin 0.9 (0.2-1) mg/dl AST 19 (15-37) U/L ALT 22 (12-78) U/L Alkaline Phosphatase 84 (45-117) U/L Troponin I < 0.015 (0-0.045) ng/ml Total Protein 7.1 (6.4-8.2) gm/dl Albumin 3.5 (3.4-5.0) gm/dl Globulin 3.6 (2.5-4.0) gm/dl Albumin/Globulin Ratio 1.0 (0.9-2) Specimen Hemolysis Urine Color Urine Appearance (Clear) Urine pH (4.5-7.5) Ur Specific [place] (1.000-1.030) Urine Protein (Negative) Urine Glucose (UA) (Negative) Urine Ketones (Negative) Urine Blood (Negative) Urine Nitrite (Negative) Urine Bilirubin (Negative) Urine Urobilinogen (Negative) Ur Leukocyte Esterase (Negative) 12/10/18 12/10/18 Range/Units 17:05 18:44 WBC (4.8-10.8) K/uL RBC (4.2-5.4) M/uL Hgb (12.0-16.0) g/dL Hct (37-47) % MCV (80-100) fL MCH (25-34) pg MCHC (32-36) g/dL RDW Std Deviation (36.4-46.3) fL RDW Coeff of Teodoro (11.5-14.5) % Plt Count (130-400) K/uL MPV (7.4-10.4) fL Immature Gran % (Auto) % Neut % (Auto) % Lymph % (Auto) % [place] % (Auto) % Eos % (Auto) % Baso % (Auto) % Immature Gran # (Auto) (0.00-0.02) K/uL Neut # (Auto) (1.4-6.5) K/uL Lymph # (Auto) (1.2-3.4) K/uL [place] # (Auto) (0.11-0.59) K/uL Eos # (Auto) (0-0.5) K/uL Baso # (Auto) (0-0.2) K/uL PT 20.8 H INR 2.1 H APTT 39.6 H PTT Ratio 1.5 Sodium (136-145) mmol/L Potassium (3.5-5.1) mmol/L Chloride (98-107) mmol/L Carbon Dioxide (21-32) mmol/L Anion Gap (3-11) BUN (7-18) mg/dl Creatinine (0.6-1.2) mg/dl Est Cr Clr Drug Dosing ml/min Est GFR ( Amer) Est GFR (Non-Af Amer) BUN/Creatinine Ratio (10-20) Glucose (70-99) mg/dl Calcium (8.5-10.1) mg/dl Magnesium (1.8-2.4) mg/dl Total Bilirubin (0.2-1) mg/dl AST (15-37) U/L ALT (12-78) U/L Alkaline Phosphatase (45-117) U/L Troponin I (0-0.045) ng/ml Total Protein (6.4-8.2) gm/dl Albumin (3.4-5.0) gm/dl Globulin (2.5-4.0) gm/dl Albumin/Globulin Ratio (0.9-2) Specimen Hemolysis Urine Color Yellow Urine Appearance Clear (Clear) Urine pH 7.0 (4.5-7.5) Ur Specific [place] 1.012 (1.000-1.030) Urine Protein Negative (Negative) Urine Glucose (UA) Negative (Negative) Urine Ketones Negative (Negative) Urine Blood Negative (Negative) Urine Nitrite Negative (Negative) Urine Bilirubin Negative (Negative) Urine Urobilinogen Negative (Negative) Ur Leukocyte Esterase Negative (Negative) Imaging Data Radiologist's Impression: Radiology results as stated below per my review and the radiologist's interpretation: XR chest 1V portable CLINICAL HISTORY: 58 years-old Female presenting with CVA Sx, dizziness and left-sided immobility. TECHNIQUE: Portable upright AP view of the chest was obtained. COMPARISON: 09/09/2009. FINDINGS: Atherosclerosis of the aortic arch. Cardiac silhouette normal in size. Mildly coarsened lung markings. Mild pulmonary vascular prominence. No focal lung opacity. No large effusion or pneumothorax. Osseous structures normal. Upper abdomen normal. IMPRESSION: 1. Mild volume overload and mild congestive change suggested. No gee pulmonary edema. Electronically signed by: Raman Ly M.D. 12/10/2018 5:[address] OF THE HEAD WITHOUT CONTRAST CLINICAL HISTORY: Stroke evaluation COMPARISON STUDY: Head CT March 27, 2011. TECHNIQUE: Helical axial images of the head were obtained without IV contrast. Automated exposure control was utilized for the study. A dose lowering technique was utilized adhering to the principles of ALARA. FINDINGS: No acute intracranial hemorrhage, midline shift or mass effect is present. The ventricular system is unremarkable. The basilar cisterns are pa tent. No extra-axial collections are present. There are no findings to suggest acute dural sinus thrombosis or acute territorial infarct. No significant calvarial abnormalities are present. Visualized portions of the sinuses and mastoid air cells are clear. IMPRESSION: No acute intracranial findings. Electronically signed by: Da Gregory M.D. 12/10/2018 6:[address] angio head w con CLINICAL HISTORY: 58 years-old Female presenting with stuttering cva sx. TECHNIQUE: Multidetector CT angiography of the head was performed after the administration of intravenous contrast. 3-D volumetric and/or maximum intensity projection (MIP) images were subsequently reconstructed for review. IV contrast: 119 mL of Optiray 320. One or more dose lowering techniques were used consistent with the principles of ALARA (as low as reasonably achievable), including automatic exposure control, mA or kV adjustment to individual patient size, and/or use of iterative reconstruction. COMPARISON: None. CT DOSE (mGy.cm): The estimated cumulative dose is 1141.87. FINDINGS: Recreation Therapy Director topogram: Unremarkable. Anterior circulation: Atherosclerosis of the cavernous segments of the internal carotid arteries. Intracranial portions of the internal carotid arteries patent to the level of the termini. Anterior cerebral arteries patent. Middle cerebral arteries patent. Anterior communicating artery patent. Posterior circulation: Codominant vertebral arteries. Intradural portions of the vertebral arteries patent. Posterior inferior cerebellar arteries patent. Basi lar artery patent. Anterior inferior cerebellar arteries poorly visualized. Superior cerebellar arteries patent. Posterior cerebral arteries patent. Posterior communicating arteries are hypoplastic or aplastic. Dural venous sinuses: Patent. Other: Allowing for the phase of contrast, brain parenchyma within normal limits. Calvarium intact. IMPRESSION: 1. No evidence of aneurysm, focal vessel occlusion, or significant stenosis of the intracranial arteries. Electronically signed by: Raman Ly M.D. 12/10/2018 6:[address] angio neck with con CLINICAL HISTORY: 58 years-old Female presenting with stuttering cva sx. TECHNIQUE: Multidetector CT angiography of the neck was performed after the administration of intravenous contrast. 3-D volumetric and/or maximum intensity projection (MIP) images were subsequently reconstructed for review. IV contrast: 119 mL of Optiray 320. One or more dose lowering techniques were used consistent with the principles of ALARA (as low as reasonably achievable), including automatic exposure control, mA or kV adjustment to individual patient size, and/or use of iterative reconstruction. Stenosis measurements were based on NASCET-like criteria (distal lumen diameter as the denominator for stenosis delfina urement). COMPARISON: None. CT DOSE (mGy.cm): The estimated cumulative dose is 1141.87 mGy.cm. FINDINGS: Recreation Therapy Director topogram: Unremarkable. Aortic arch: Atherosclerosis of the three-vessel aortic arch with patent origins of the branch vessels. Innominate artery: Mild stenosis of the origin of the right innominate artery. Right subclavian artery: Patent. Right common carotid artery: Patent. Right internal and external carotid arteries: Calcified atherosclerotic plaque at the carotid bifurcation. This results in approximately 50% stenosis of the origin of the right external carotid artery. No significant stenosis of the origin or course of the right internal carotid artery. Left common carotid artery: Mild atherosclerotic plaque at the distal course without significant stenosis. Left internal and external carotid arteries: Calcified and noncalcified atherosclerotic plaque at the carotid bifurcation. This results in approximately 50% stenosis of the origin of the left external carotid artery with the remainder of the left ECA course widely patent. There is approximately 25% stenosis of the origin and proximal portion of the left internal carotid artery due to calcified and noncalcified atherosclerotic plaque. Left subclavian artery: Atherosclerotic plaque along the proximal course with less than 25% stenosis. Vertebral arteries: Codominant vertebral arteries. Origins and courses of the bilateral vertebral arteries patent. Other: Limited intracranial evaluation within normal limits. Soft tissues of the neck normal allowing for the phase of contrast. Normal cervical spine. Lung apices clear. IMPRESSION: 1. Atherosclerotic plaque results in approximately 50% stenosis of the origins of the bilateral ECAs. This is unlikely to be of clinical concern. 2. No significant stenosis of the origin or course of the right ICA. 3. Approximately 25% stenosis of the origin of the left ICA. This is unlikely to be hemodynamically significant. 4. No dissection or focal vessel occlusion. Electronically signed by: Raman Ly M.D. 12/10/2018 6:28 PM ECG Data Attestation: I personally reviewed and interpreted this ECG as follows: Indication: other (stroke-like symptoms) Rate (beats per minute): 69 Rhythm: normal sinus Findings: + other (QTc 458); no PAC, no PVC, no ST depression and no ST elevation Blood Pressure Blood Pressure Findings: Elevated blood pressure Blood Pressure Disposition: further management by hospitalist MDM Narrative This pt was evaluated and appeared to be in no distress. IV access was obtained and lab work was drawn. 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 EKG reveals a NSR. PE is reassuring, no acute deficit at this time. Story is concerning for stuttering ischemia. Pt was given po ASA. INR is 2.1. CT/CTA head and neck are read as above. Pt was reassessed and symptom free, although thinks her leg may have been heavy at one point. I do not feels the pt warrants TPA at this time. She is high risk with years of heavy smoking, obesity, hypercoagulable dx and diabetes. Pt was d/w the hospitalist who will evaluate for further managemen t. Impression & Plan Stroke-like symptoms Discharge Plan Visit Data *Final* Discharge Date/Time: 12/10/18 21:08 Chief Complaint: Stroke/CVA Symptoms Stated Complaint: STROKE SX ED Provider: Gina Browne Discharge Problem: Stroke-like symptoms Patient Disposition: Admitted As Inpatient Discharge Instructions Interventions: ED Discharge Assessment Last Done: 12/10/18 21:08 The scribe's documentation has been prepared under my direction and personally reviewed by me in its entirety. I confirm that the note above accurately reflects all work, treatment, procedures, and medical decision making performed by me.
[2018-12-10] MEDS ORDERED: POTASSIUM CHLORIDE 20 MEQ TABCR PO STA (20:17)
--- NOTE | 2018-12-10 20:31 | History & Physical Report ---
Date of Service December 10, 2018 Assessment & Plan (1) Left arm weakness: (2) Left leg weakness: Pt presented with L arm and L leg weakness onset 11am, initially transient this morning then more consistent this afternoon. Associated lightheaded, nausea. Pt felt like had slurred speech however since ER arrival no speech abnormalities noted. In ER pt afebrile, P: 70, R: 16, BP: 151/71, 94% on RA. No leukocytosis. H/H: 18/51, Plt: 98, INR: 2.1. K: 3.2, Cl: 108 otherwise no other major electrolyte abnormality CT HEAD: No acute intracranial findings. CTA HEAD: No evidence of aneurysm, focal vessel occlusion, or significant stenosis of the intracranial arteries. CTA NECK: 1. Atherosclerotic plaque results in approximately 50% stenosis of the origins of the bilateral ECAs. This is unlikely to be of clinical concern. 2. No significant stenosis of the origin or course of the right ICA. 3. Approximately 25% stenosis of the origin of the left ICA. This is unlikely to be hemodynamically significant. 4. No dissection or focal vessel occlusion. CXR: Mild volume overload and mild congestive change suggested. No gee pulmonary edema. DDX: TIA/Stroke -In ER pt given ASA 324mg po -Tele to monitor for arrhythmias -UA pending -EKG in am -Trend troponin -lipids, TSH in am -MRI brain if pt tolerates -echo with bubble study -aspiration precautions -PT/OT consult -neurology consult (3) Hypokalemia: K: 3.2 Pt on diuretics -replace and monitor (4) Pseudotumor cerebri: Denies vision changes, ROMERO, tinnitus -Continue Diamox (5) History of pulmonary embolism: H/O PE in 2009. Hx MTHFR Mutation. On chronic Coumadin. INR: 2.1 -monitor INR and adjust Coumadin as needed (6) Hypertension: 151/71, 173/76 in ER Pt did not have afternoon or PM BP meds. -Continue amlodipine, atenolol (7) Diabetes mellitus, type II: A1c: 5.9 on 10/18/18 -Hold Januvia -Novolog sliding scale per protocol (8) Pulmonary hypertension: -Continue lasix (9) Sleep apnea: Hx sleep apnea. Does not use CPAP (10) Tobacco use: -Smoking cessation encouraged -Pt denies nicotine patch DVT Prophylaxis -On Coumadin, INR therapeutic Full Code as per discussion with pt Follows with Dr Dunn for routine care Pt was seen and care coordinated with Dr Torres. See addendum History of Present Illness Chief Complaint: Left extremity weakness Primary Care Provider: Christ Dunn, DO PT is 58 y/o F with PMH HTN, dyslipidemia, PE on Coumadin, h/o MTHFR mutation, DM II, pulmonary hypertension, pseudotumor cerebri, sleep apnea, tobacco use presented to ER with complaint of left arm and left leg weakness. Patient states 4 days ago she noticed some left arm weakness which lasted approximately 15 minutes and resolved. Patient states today around 11 AM he noticed left arm and leg felt "funny" and left arm and leg felt weak. She also had associated lightheadedness. Patient states symptoms lasted approximately 30 minutes and resolved. Reports return of symptoms around 1 PM today with left arm and left l eg weakness, lightheadedness, nausea. Patient reports symptoms seem to wax and wane and then became more consistent. She reports she feels like her speech is slurred. Patient denies any vomiting. States yesterday had 1-2 episodes of diarrhea which she relates to eating ice cream. No diarrhea today. Chronic leg edema which has improved over past 8 months with intentional 50lb weight loss. Denies SOB, orthopnea or PND. Denies fever/chills, diaphoresis, ROMERO, syncope, vision changes, neck pain, CP, palpitations, cough, sore throat, choking, otalgia, rhinorrhea, abdominal pain, paresthesias, facial drooping, rashes, urinary symptoms. Allergies Allergy/AdvReac Type Severity Reaction Status Date / Time moxifloxacin Allergy Intermediate CHEST PAIN Verified 12/10/18 19:03 RAPID HEART BEAT HIGH BP RASH Penicillins Allergy Intermediate HIVES Verified 12/10/18 19:03 Sulfa (Sulfonamide Allergy Intermediate HIVES Verified 12/10/18 19:03 Antibiotics) doxycycline AdvReac Intermediate Pseudo Unverified 12/10/18 19:03 tumor cerebri neomycin AdvReac Unknown ITCHY Verified 12/10/18 19:03 prednisone AdvReac Unknown TACHYCARDIA Verified 12/10/18 19:04 DECONGESTANTS AdvReac Unknown TACHYCARDIA Uncoded 12/10/18 19:04 Home Medications Home Medications Medication Instructions Recorded Confirmed Type acetazolamide 500 mg PO DAILY 12/10/18 12/10/18 History amlodipine 2.5 mg PO .DAILY IN AFTERNOON 12/10/18 12/10/18 History atenolol 50 mg PO BID 12/10/18 12/10/18 History cyanocobalamin (vitamin B-12) 1,000 mcg PO DAILY 12/10/18 12/10/18 History folic acid 1 mg PO DAILY 12/10/18 12/10/18 History furosemide 40 mg PO BID 12/10/18 12/10/18 History nystatin 1 applic TOPICAL BID PRN 12/10/18 12/10/18 History omeprazole 40 mg PO QAM 12/10/18 12/10/18 History ranitidine HCl 300 mg PO HS 12/10/18 12/10/18 History sitagliptin [Januvia] 100 mg PO DAILY 12/10/18 12/10/18 History warfarin 2.5 mg PO .ONCE WEEKLY 12/10/18 12/10/18 History warfarin 5 mg PO 6XWK 12/10/18 12/10/18 History Past Med/Surg History Medical History Sleep apnea (Chronic) Tobacco use (Chronic) Pulmonary hypertension (Chronic) MTHFR gene mutation (Chronic) Pseudotumor cerebri (Chronic) History of pulmonary embolism (Chronic) Dyslipidemia (Chronic) Diabetes mellitus, type II (Chronic) Hypertension (Chronic) Surgical History History of carpal tunnel surgery (Chronic) Family History Other Diabetes Hypertension Social History Preferred Language: [place]an Communication Ability: Effective Layer Up Required: No Beliefs That Will Affect Care: None Current Living Situation: Alone Other Information That Helps Us Care for You: No Feels Safe at Home: Yes Safety Concerns: Feels Safe At This Time Smoking Status: Current every day smoker Tobacco Type: cigarettes Cigarettes Per Day: 30 Tobacco Cessation Education Requested by Patient: No Hx Alcohol Use: No Hx Substance Use: No Review of Systems Review of Systems: All systems reviewed & are unremarkable except as noted in HPI & below Physical Exam Physical Exam: General: no acute distress, obese Head: normocephalic, atraumatic Eyes: PERRL, EOM's intact, conjunctiva non-injected, anicteric ENT: normal inspection external ears, nose, mucous membranes moist Neck: supple, trachea midline Lungs: clear, no respiratory distress, no wheezing/rhonchi/rales CV: RRR, no murmur, 1+ pretibial edema Abd: normal BS, soft, non-tender Ext: no cyanosis, no calf tenderness, distal pulses intact Neuro: A&O x 3, normal affect, no facial drooping, tongue midline, no slurred speech, L arm and L leg weakness compared to R leg and R arm, ROM intact, sensation to light touch intact Skin: warm, dry Results & Data Vital Signs (Past 12 Hours) Vital Signs Temp Pulse Resp BP Pulse Ox 12/10/18 19:41 77 16 95 12/10/18 19:30 76 21 186/73 H 90 12/10/18 19:00 76 20 157/76 H 92 12/10/18 18:01 73 11 L 163/73 H 93 12/10/18 18:00 73 25 H 92 12/10/18 17:31 71 14 152/74 H 92 12/10/18 17:08 71 27 H 92 12/10/18 17:06 72 18 171/81 H 92 12/10/18 17:05 74 15 92 12/10/18 16:56 92 12/10/18 16:55 70 18 91 12/10/18 16:50 72 22 93 12/10/18 16:37 36.5 C 70 16 151/71 H 94 12/10/18 16:34 72 12 151/71 H 94 Laboratory Results Short CBC 12/10/18 Range/Units 16:50 WBC 5.69 (4.8-10.8) K/uL Hgb 18.4 H (12.0-16.0) g/dL Hct 51.3 H (37-47) % Plt Count 98 L (130-400) K/uL BMP 12/10/18 16:50 Sodium 140 Potassium 3.2 L Chloride 108 H Carbon Dioxide 27 BUN 9 Creatinine 0.82 Glucose 144 H Calcium 8.8 Cardiac Enzymes 12/10/18 Range/Units 16:50 Troponin I < 0.015 (0-0.045) ng/ml Liver Function 12/10/18 Range/Units 16:50 Total Bilirubin 0.9 (0.2-1) mg/dl AST 19 (15-37) U/L ALT 22 (12-78) U/L Alkaline Phosphatase 84 (45-117) U/L Albumin 3.5 (3.4-5.0) gm/dl Diagnostic Findings CT HEAD: IMPRESSION: No acute intracranial findings. CTA HEAD: IMPRESSION: 1. No evidence of aneurysm, focal vessel occlusion, or significant stenosis of the intracranial arteries. CTA NECK: IMPRESSION: 1. Atherosclerotic plaque results in approximately 50% stenosis of the origins of the bilateral ECAs. This is unlikely to be of clinical concern. 2. No significant stenosis of the origin or course of the right ICA. 3. Approximately 25% stenosis of the origin of the left ICA. This is unlikely to be hemodynamically significant. 4. No dissection or focal vessel occlusion. CXR: IMPRESSION: 1. Mild volume overload and mild congestive change suggested. No gee pulmonary edema. ECG Rate (beats per minute): 69 Rhythm: normal sinus Supervising Physician Co-Signing Physician Notes Care coordinated with Christiana Urbina PA-C. Agree with above note. Patient seen and examined. Please refer to her notes for full details. Vital signs reviewed. Physical exam: General exam: Alert and oriented. Not in acute distress. CVS: S1 and S2 heard, regular rate and rhythm, no murmurs. RS: Clear to auscultation, no wheezing or crackles. ABD: Soft, bowel sounds present, nontender, no distention. 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 Labs: Reviewed. Assessment and plan: 58F presents with stroke like symptoms with left sided weakness initially transient on Saturday and then 11am 12/10/18 and the constantly since 1pm. Speech clear though patient says she is having trouble speaking. CT head, CTA head and neck no acute findings. Patient says she needs complete sedation to do MRI Patient on coumadin for hx of PE and inr 2.1. Was given full dose aspirin in Er. Will continue baby aspirin. Anesthesia consult for sedation for mri. neurology consult. close monitor in tele. Pemissive HTN Other diagnosis and plan of care as per []. Suleiman maynard MD.
[2018-12-10 21:05] LABS: Appearance Urine Clear (Clear); Bilirubin Urine Negative (Negative); Blood Urine Negative (Negative); Color Urine Yellow; Glucose Urine UA Negative (Negative); Ketones Urine Negative (Negative); Leukocyte Esterase Urine Negative (Negative); Nitrite Urine Negative (Negative); Protein Urine Negative (Negative); Specific Gravity Urine 1.012 (1.000-1.030); Urobilinogen Urine Negative (Negative)
[2018-12-10] MEDS ORDERED: GLUCOSE 40% GEL 15 GM TUBE PO PRN (21:24)
[2018-12-10] MEDS ORDERED: PHARMACIST DISCHARGE MED REC CONSULT PRN (21:24)
[2018-12-10] MEDS ORDERED: DEXTROSE 50% 50 ML SYRINGE IV PRN (21:24)
[2018-12-10] MEDS ORDERED: CARBOHYDRATES FOR HYPOGLYCEMIA PO PRN (21:24)
[2018-12-10] MEDS ORDERED: ACETAMINOPHEN 325 MG TAB PO PRN (21:24)
[2018-12-10] MEDS ORDERED: GLUCOSE 10 TABS/TUBE PO PRN (21:24)
[2018-12-10] MEDS ORDERED: GLUCAGON FOR INJ 1 MG VIAL SQ PRN (21:24)
[2018-12-10] MEDS: INSULIN ASPART 100 UNITS/ML 3 ML PEN SC SCH (22:43)
[2018-12-10] MEDS: FUROSEMIDE 40 MG TAB PO SCH (22:45)
[2018-12-10] MEDS: ATENOLOL 50 MG TABLET PO SCH (22:46)
[2018-12-10] MEDS: WARFARIN SOD 5 MG TAB PO SCH (22:47)
[2018-12-10] MEDS: AMLODIPINE BESYLATE 5 MG TAB PO SCH (22:47)
[2018-12-10] MEDS: acetaZOLAMIDE 500 MG CAPCR PO SCH (22:48)
[2018-12-11 04:44] LABS: Basophils # (auto) 0.01 K/uL (0-0.2); Basophils % (auto) 0.2 %; Eosinophils # (auto) 0.05 K/uL (0-0.5); Eosinophils % (auto) 0.9 %; Hematocrit (blood only) 48.8 % (37-47); Hemoglobin 17.3 g/dL (12.0-16.0); Immature Granulocytes # (auto) 0.01 K/uL (0.00-0.02); Immature Granulocytes % (auto) 0.2 %; Lymphocytes # (auto) 1.97 K/uL (1.2-3.4); Lymphocytes % (auto) 34.4 %; Mean Corpuscular Hgb Conc 35.5 g/dL (32-36); Mean Corpuscular Volume 88.1 fL (80-100); Mean Platelet Volume 11.6 fL (7.4-10.4); Monocytes # (auto) 0.39 K/uL (0.11-0.59); Monocytes % (auto) 6.8 %; Neutrophils % (auto) 57.5 %; Platelet Count 111 K/uL (130-400); RDW Coefficient of Variation 13.4 % (11.5-14.5); RDW Standard Deviation 43.4 fL (36.4-46.3); Red Blood Count 5.54 M/uL (4.2-5.4); White Blood Count 5.73 K/uL (4.8-10.8)
[2018-12-11 04:46] LABS: INR 2.1 (0.9-1.1); Prothrombin Time 20.4 Seconds (9.0-12.0)
[2018-12-11 05:04] LABS: BUN Creatinine Ratio 13.3 (10-20); Blood Urea Nitrogen 8 mg/dl (7-18); Calcium 8.8 mg/dl (8.5-10.1); Carbon Dioxide 28 mmol/L (21-32); Chloride 109 mmol/L (98-107); Creatinine Clr Calc Pharmacy 135.6 ml/min; Est GFR (African American) 117.9; Est GFR (Non-African American) 101.7; Glucose 113 mg/dl (70-99); Potassium 3.3 mmol/L (3.5-5.1); Sodium 139 mmol/L (136-145)
[2018-12-11 05:15] LABS: Chol HDL Ratio 7; Cholesterol 244 mg/dl (0-200); HDL Cholesterol 35 mg/dl; LDL Cholesterol Calculated 176 mg/dl; Triglycerides 165 mg/dl (0-150); Troponin I < 0.015 ng/ml (0-0.045); VLDL Cholesterol 33 mg/dl
[2018-12-11] MEDS ORDERED: POTASSIUM CHLORIDE 10 MEQ TABCR PO STA (05:22)
[2018-12-11] MEDS: INSULIN ASPART 100 UNITS/ML 3 ML PEN SC SCH ×4 (08:04→20:35)
[2018-12-11] MEDS: FUROSEMIDE 40 MG TAB PO SCH ×2 (08:04→20:47)
[2018-12-11] MEDS: ATENOLOL 50 MG TABLET PO SCH ×2 (08:04→20:46)
[2018-12-11] MEDS: PANTOprazole 40 MG TAB PO SCH (08:04)
[2018-12-11] MEDS: ASPIRIN 81 MG ECTAB PO SCH (08:04)
[2018-12-11] MEDS: FOLIC ACID 1 MG TAB PO SCH (08:04)
[2018-12-11] MEDS: CYANOCOBALAMIN 500 MCG TABLET (VITAMIN B-12) PO SCH (08:04)
[2018-12-11] MEDS ORDERED: ATORVASTATIN 10 MG TAB PO SCH (09:00)
[2018-12-11] MEDS ORDERED: MIDAZOLAM HCL 1 MG/ML 2ML VIAL ONE (10:28)
[2018-12-11] MEDS ORDERED: fentaNYL citrate 100 MCG/2 ML VIAL ONE (10:28)
--- NOTE | 2018-12-11 10:36 | Anesthesiology Consultation ---
Date of Service December 11, 2018 Assessment & Plan (1) Encounter for pre-operative examination: Chart Review Chart Review: Acceptable Risk for Surgery History Height/Weight Height: 5 ft 4 in Weight: 119 kg Allergies Allergy/AdvReac Type Severity Reaction Status Date / Time moxifloxacin Allergy Intermediate CHEST PAIN Verified 12/10/18 19:03 RAPID HEART BEAT HIGH BP RASH Penicillins Allergy Intermediate HIVES Verified 12/10/18 19:03 Sulfa (Sulfonamide Allergy Intermediate HIVES Verified 12/10/18 19:03 Antibiotics) doxycycline AdvReac Intermediate Pseudo Unverified 12/10/18 19:03 tumor cerebri neomycin AdvReac Unknown ITCHY Verified 12/10/18 19:03 prednisone AdvReac Unknown TACHYCARDIA Verified 12/10/18 19:04 DECONGESTANTS AdvReac Unknown TACHYCARDIA Uncoded 12/10/18 19:04 Medications Home Medications Medication Instructions Recorded Confirmed Last Taken acetazolamide 500 mg PO DAILY 12/10/18 12/10/18 Unknown amlodipine 2.5 mg PO .DAILY IN AFTERNOON 12/10/18 12/10/18 12/09/18 atenolol 50 mg PO BID 12/10/18 12/10/18 Unknown cyanocobalamin (vitamin B-12) 1,000 mcg PO DAILY 12/10/18 12/10/18 Unknown folic acid 1 mg PO DAILY 12/10/18 12/10/18 Unknown furosemide 40 mg PO BID 12/10/18 12/10/18 Unknown nystatin 1 applic TOPICAL BID PRN 12/10/18 12/10/18 Unknown omeprazole 40 mg PO QAM 12/10/18 12/10/18 Unknown ranitidine HCl 300 mg PO HS 12/10/18 12/10/18 Unknown sitagliptin [Januvia] 100 mg PO DAILY 12/10/18 12/10/18 Unknown warfarin 2.5 mg PO .ONCE WEEKLY 12/10/18 12/10/18 Unknown warfarin 5 mg PO [id number] 12/10/18 12/10/18 Unknown Active Medications Generic Name Dose Route Start Last Admin Trade Name Freq PRN Reason Stop Dose Admin Acetazolamide 500 mg 12/11/18 09:00 12/10/18 22:48 Diamox Sequels PO 01/10/19 08:59 500 mg DAILY BOGDAN Administration Amlodipine Besylate 2.5 mg 12/10/18 21:24 12/10/18 22:47 Norvasc PO 01/09/19 21:23 2.5 mg DAILY@1400 BOGDAN Administration Aspirin 81 mg 12/11/18 09:00 12/11/18 08:04 Ecotrin Ectab PO 01/10/19 08:59 81 mg QAM BOGDAN Administration Atenolol 50 mg 12/10/18 21:24 12/11/18 08:04 Tenormin PO 01/09/19 21:23 50 mg BID BOGDAN Administration Atorvastatin Calcium 10 mg 12/11/18 09:00 12/11/18 08:04 Lipitor PO 01/10/19 08:59 10 mg QAM BOGDAN Administration Cyanocobalamin 1,000 mcg 12/11/18 09:00 12/11/18 08:04 Vitamin B-12 PO 01/10/19 08:59 1,000 mcg DAILY BOGDAN Administration Folic Acid 1 mg 12/11/18 09:00 12/11/18 08:04 Folvite PO 01/10/19 08:59 1 mg DAILY BOGDAN Administration Furosemide 40 mg 12/10/18 21:24 12/11/18 08:04 Lasix PO 01/09/19 21:23 40 mg BID BOGDAN Administration Insulin Aspart 0 units 12/10/18 21:24 12/11/18 08:04 Novolog Flexpen SC 01/09/19 21:23 Not Given ACHS BOGDAN Pantoprazole Sodium 40 mg 12/11/18 09:00 12/11/18 08:04 Protonix PO 01/10/19 08:59 40 mg QAM BOGDAN Administration Ranitidine HCl 300 mg 12/10/18 21:24 12/10/18 22:46 Zantac PO 01/09/19 21:23 300 mg HS BOGDAN Administration Warfarin Sodium 5 mg 12/10/18 21:24 12/10/18 22:47 Coumadin PO 01/09/19 21:23 5 mg [id number] BOGDAN Administration Past Medical History Medical History Sleep apnea (Chronic) Tobacco use (Chronic) Pulmonary hypertension (Chronic) MTHFR gene mutation (Chronic) Pseudotumor cerebri (Chronic) History of pulmonary embolism (Chronic) Dyslipidemia (Chronic) Diabetes mellitus, type II (Chronic) Hypertension (Chronic) Past Family History Family History Other Diabetes Hypertension Past Surgical History Surgical History History of carpal tunnel surgery (Chronic) Social History Smoking Status: Current every day smoker tobacco type: cigarettes Smoking cigarettes per day: 30 Hx Alcohol Use: No Hx Substance Use: No Physical Exam Vital Signs Last Vital Signs Temp 37.0 C 12/11/18 07:10 Pulse 63 12/11/18 08:00 Resp 18 12/11/18 07:10 BP 154/84 H 12/11/18 07:10 Pulse Ox 90 12/11/18 07:10 Testing Laboratory Results 12/11/18 03:57 12/11/18 03:57 PT 20.4 Seconds (9.0-12.0) H 12/11/18 03:57 INR 2.1 (0.9-1.1) H 12/11/18 03:57 APTT 39.6 Seconds (21.0-31.0) H 12/10/18 18:44 Urine Color Yellow 12/10/18 17:05 Urine Appearance Clear (Clear) 12/10/18 17:05 Urine pH 7.0 (4.5-7.5) 12/10/18 17:05 Ur Specific [place] 1.012 (1.000-1.030) 12/10/18 17:05 Urine Protein Negative (Negative) 12/10/18 17:05 Urine Glucose (UA) Negative (Negative) 12/10/18 17:05 Urine Ketones Negative (Negative) 12/10/18 17:05 Urine Nitrite Negative (Negative) 12/10/18 17:05 Ur Leukocyte Esterase Negative (Negative) 12/10/18 17:05 12/11/18 07:24 POC Glucose 125 H Electrocardiogram Date: 12/11/18 Findings: + NSR @ (66) Chest X-Ray Date: 12/10/18 Findings: + pulmonary vascular congestion (mild)
[2018-12-11] MEDS ORDERED: DexMEDEtomidine HCL IV 100 MCG/ML VIAL ONE (11:12)
[2018-12-11] MEDS ORDERED: GADOBUTROL 65ML VIAL IV PRN (12:41)
--- NOTE | 2018-12-11 12:52 | Magnetic Resonance Report ---
MRI OF THE BRAIN WITHOUT AND WITH IV CONTRAST CLINICAL HISTORY: L extremity weakness COMPARISON STUDY: CT scan dated 12/10/2018 TECHNIQUE: MRI of the brain was performed from the vertex to the skull base utilizing various T1 and T2 weighted sequences. Following the IV administration of 11.5 mL of Gadavist contrast, additional en hanced images were obtained. FINDINGS: Sagittal T1, axial diffusion, proton density and T2 weighted axial, coronal FLAIR, and pre and post a xial T1-weighted images were acquired. These were supplemented with post gadolinium coronal T1 weight ed images. No intra or extra-axial mass lesions are visualized. There is a 5 mm focus of restricted water diffusion within the right medial temporal lobe. This is co nsistent with a tiny acute/subacute infarct. There is an equivocal second tiny focus of restricted wa ter diffusion within the left medial temporal lobe. There is no evidence of ventricular dilatation. Proton density T2-weighted and FLAIR images reveal minimal foci of increased T2 signal within the whi te matter, likely on a small vessel basis. There are no abnormal flow voids. There is no evidence of pathologic enhancement. There is a partially empty sella. IMPRESSION: 1. 5 mm focus of restricted water diffusion within the right medial temporal lobe indicative of an ac dexter/subacute infarct 2. A second tiny focus of increased signal on diffusion-weighted images in the left medial temporal l obe, and may be artifactual 3. No evidence of intracranial mass. No evidence of pathologic enhancement. Electronically signed by: Amilcar Kilgore M.D. 12/11/2018 12:50 PM
[2018-12-11] MEDS ORDERED: LIDOCAINE HCL 2% 2 ML VIAL/AMP(20MG/ML) INFIL ONE (12:57)
[2018-12-11] MEDS ORDERED: PROPOFOL IV EMULSION 10 MG/ML 20 ML VIAL IV ONE (12:57)
--- NOTE | 2018-12-11 13:05 | Anesthesiology Progress Note ---
Date of Service December 11, 2018 Anesthesia Post Procedure Vital Signs Vital Signs: Temp Pulse Pulse Resp BP BP Pulse Ox 12/11/18 12:53 36.4 C L 63 18 163/91 H 95 12/11/18 08:00 63 12/11/18 07:10 37.0 C 65 18 154/84 H 90 12/11/18 03:16 36.5 C 68 20 176/84 H 95 12/10/18 23:55 76 12/10/18 21:30 73 12/10/18 21:26 36.9 C 74 16 170/96 H 92 12/10/18 21:08 72 21 157/93 H 93 12/10/18 21:00 72 21 157/93 H 93 12/10/18 20:30 74 23 173/76 H 91 12/10/18 19:49 78 24 196/67 H 91 12/10/18 19:41 77 16 95 12/10/18 19:30 76 21 186/73 H 90 12/10/18 19:00 76 20 157/76 H 92 12/10/18 18:01 73 11 L 163/73 H 93 12/10/18 18:00 73 25 H 92 12/10/18 17:31 71 14 152/74 H 92 12/10/18 17:08 71 27 H 92 12/10/18 17:06 72 18 171/81 H 92 12/10/18 17:05 74 15 92 12/10/18 16:56 92 12/10/18 16:55 70 18 91 12/10/18 16:50 72 22 93 12/10/18 16:37 36.5 C 70 16 151/71 H 94 12/10/18 16:34 72 12 151/71 H 94 Transfer of Care Handoff Completed per policy Notes Mental Status: alert / awake / arousable Patient Amnestic to Procedure: Yes Nausea / Vomiting: adequately controlled Pain: adequately controlled Airway Patency, RR, SpO2: stable & adequate BP & HR: stable & adequate Hydration State: stable & adequate Anesthetic Complications: no major complications apparent
--- NOTE | 2018-12-11 13:19 | Hospitalist Progress Note ---
Date of Service December 11, 2018 Assessment & Plan (1) Left arm weakness: (2) Left leg weakness: Acute CVA: --MRI Brain:5 mm focus of restricted water diffusion within the right medial temporal lobe indicative of an acute/subacute infarct 2. A second tiny focus of increased signal on diffusion-weighted images in the left medial temporal lobe, and may be artifactual -- CT head: No acute intracranial findings. -- Neck CTA: Atherosclerotic plaque results in approximately 50% stenosis of the origins of the bilateral ECAs. This is unlikely to be of clinical concern. No significant stenosis of the origin or course of the right ICA. Approximately 25% stenosis of the origin of the left ICA. This is unlikely to be hemodynamically significant. No dissection or focal vessel occlusion. --Head CTA:No evidence of aneurysm, focal vessel occlusion, or significant stenosis of the intracranial arteries. -- ECHO: Pending Speech and swallow eval PT/OT: recommends to return home Started on aspirin, Lipitor Also on coumadin Neuro checks, Neurology consult--pending Allow permissive HTN in setting of acute CVA (3) Hypokalemia: Likely due to diuretics replace and monitor (4) Pseudotumor cerebri: Denies vision changes, ROMERO, tinnitus Continue Diamox (5) History of pulmonary embolism: H/O PE in 2009. Hx MTHFR Mutation. On chronic Coumadin. INR: 2.1 monitor INR and adjust Coumadin as needed (6) Hypertension: Mildly elevated Asymptomatic Continue amlodipine, atenolol Adjust HTN meds dosing tmw if BP remains elevated (7) Diabetes mellitus, type II: A1c: 5.9 on 10/18/18 Hold Januvia Novolog sliding scale per protocol (8) Pulmonary hypertension: Continue lasix (9) Sleep apnea: Hx sleep apnea. 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 (10) Tobacco use: Smoking cessation encouraged Refuses nicotine patch DVT Px On Coumadin Code Status Full Code as Disposition: Expect to discharge home when stable Follows with Dr Dunn for routine care Subjective Patient is seen and examined at bedside Left-sided weakness completely resolved Denies any slurred speech, facial deformity, vision change, dizziness, chest pain, shortness of breath, abdominal pain Tingling or numbness Offers no other complaints MRI brain suggestive of acute CVA Review of Systems Review of Systems: All systems reviewed & are unremarkable except as noted in HPI & below Physical Exam Physical Exam: Physical Exam: Vitals signs as noted above General Appearance:Obese, no apparent distress Head: normocephalic, Atraumatic Eyes: normal inspection, EOMI Neck: supple, Trachea midline Respiratory/Chest: Normal breath sounds, CTA Cardiovascular: S1, S2, No murmur Abdomen/GI:Soft, Non tender, Bowel sounds present Extremities/Musculoskelatal:normal inspection, Trace edema Neurologic/Psych:AAOX3, grossly no focal neurological deficits Skin: normal color, warm Results & Data Vital Signs (Past 12 Hours) Vital Signs Temp Pulse Pulse Resp BP Pulse Ox 12/11/18 12:53 36.4 C L 63 18 163/91 H 95 12/11/18 08:00 63 12/11/18 07:10 37.0 C 65 18 154/84 H 90 12/11/18 03:16 36.5 C 68 20 176/84 H 95
[2018-12-11] MEDS: AMLODIPINE BESYLATE 5 MG TAB PO SCH (13:43)
--- NOTE | 2018-12-11 15:21 | Communication Note ---
Date of Service: December 11, 2018 I have seen Kathryn Valdes today, examined her, reviewed her laboratory studies and her imaging studies but have not reviewed the results of her echocardiogram which is just been performed. A full neurologic consultation has been dictated but this note should be used for a summary of our conclusions and recommendations Basically Kathryn has had a small cerebrovascular event of unknown cause involving the right temporal parietal area with a TIA-like event last Saturday and then a more protracted event that has not clinically cleared yesterday and currently her examination is normal and all we have on imaging of significance is the evidence for the small assumed CVA on diffusion-weighted imaging This may well be a localized intracranial small vessel event as the history suggests that there were some warning ischemic episodes on Saturday and that the symptoms fluctuated throughout the course of yesterday before clearing completely. This would be unlikely for cardiogenic embolic event but that having been said we do need to be certain as woman does not have a potential cardiogenic source of emboli She is already on Coumadin for her DVT/pulmonary embolism and MTHFR hypercoagulable state so the issue now is whether Coumadin and aspirin are going to be required and certainly one could easily justify adding aspirin for presumed intracranial small vessel disease in this setting Recommendation would be to hold her overnight and observe for further vascular events, continue the aspirin, reviewed the results of the echocardiogram, and if she is stable allow her to be discharged tomorrow morning on both Coumadin and aspirin and to have her followed up with Dr. Ana Singh's outpatient clinic in about [address] Schneider will be taking over the neurology consulting service tomorrow and should be contacted if there are any unexpected complications and this is Lucio's case She should continue her low-dose Diamox for her pseudotumor cerebri and should continue to follow-up with Dr. Carson as scheduled for this issue anyway Ashwin Michaels MD
[2018-12-11] MEDS: WARFARIN SOD 5 MG TAB PO SCH (15:36)
--- NOTE | 2018-12-11 16:00 | Consultation Report ---
DATE OF CONSULTATION: 12/11/2018 CONSULTATION FOR: Dr. Spears. HISTORY OF PRESENT ILLNESS: Kathryn is a 58-year-old, is right handed, is a patient of Dr. Christ Dunn and knows Dr. Singh of neurology who follows her for low-grade pseudotumor cerebri and has her on a single 500 mg Diamox tablet a day and has had her on for some time now. She had pseudotumor dates back quite some time, goes in and out of states for relative remission and recently had some increased symptomatology with pulsatile tinnitus resulting in the need for some more Diamox. 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 MEDICATIONS: Her medications on an outpatient basis in addition to the Diamox include amlodipine, atenolol, vitamin B12, folic acid, furosemide, nystatin, omeprazole, ranitidine, Januvia, warfarin, but no aspirin. ALLERGIES: SHE HAS ALLERGIES TO SULFA, DOXYCYCLINE, NEOMYCIN, PREDNISONE, THOUGH I AM NOT SURE HOW THIS HAS MANIFESTED, AND VARIOUS DECONGESTANTS, I AM NOT SURE HOW THIS IS MANIFESTED IN ADDITION TO MOXIFLOXACIN. In this setting, she noted last Saturday for perhaps an hour or so brief episode of left arm and leg clumsiness and numbness and vague disequilibrium. This cleared rapidly and did not recur then until yesterday morning when the symptoms were not present on admission, but then around 1:00 p.m. recurred to the point that she had difficulty walking and using her arm and I had the impression things were waxing and waning and there may have been some slurring of her speech and again some vague disequilibrium. She was brought to the hospital at which point she was looking fairly well, although needed some assistance from nursing and had a series of studies done including CTAs of the head and neck, CAT scan of the brain, but an MRI was not done until today. A CAT scan of the head showed nothing significant and the CTA showed only external carotid artery stenosis about 50% and 25% stenosis of the left internal carotid artery at its origin which certainly would not explain the current symptoms of left-sided weakness. The intracranial circulation specifically described as normal. An echocardiogram has been done, but was just completed and is not reported. She went to bed with the weakness and clumsiness in the left arm and leg, but then awakened this morning in a normal state and has had no more problems ever since. MRI has been done and shows a punctate focus in the right parietotemporal area which might explain some of the symptoms and there is question about of another focus in the left temporal area, but Dr. Flores and I agree that this is probably artifactual. The rest of the scan looks actually fairly clean and does not show any significant underlying small vessel changes. FAMILY HISTORY: Noncontributory. SOCIAL HISTORY: Reveals her to be a nonsmoker, single, living alone and minimal consumer of ethanol. REVIEW OF SYSTEMS: Reveals no recent fevers, sweats, chills, weight loss, weight gain. No new issues referral to head, eyes, ears, nose and throat. No specific issues relating to the cardiovascular system other than a lifelong history of intermittent palpitations. No new pulmonary problems, gastrointestinal problems, genitourinary issues, musculoskeletal, dermatologic or endocrinologic issues are reported. Neurologically, all she has ever had is pseudotumor and she never had migraines or symptoms of similar types that brought her to the hospital. PHYSICAL EXAMINATION: VITAL SIGNS: Her blood pressure was 186/73, pulse was 77, respirations 16. She was afebrile. GENERAL: She was moderately over-nourished, but otherwise appeared to be in no acute distress. HEENT: Examination of the head, eyes, ears, nose and throat appeared to be abnormal. Her speech was clear. No bruits were heard. HEART: Had a regular rhythm. No murmurs were appreciated. LUNGS: Were clear. ABDOMEN: Soft, nontender, and there was a little bit of peripheral edema, but minimal and pulses were normal. NEUROLOGIC: Today, neurologically she is normal. She is alert, awake, oriented in 3 spheres. Eye movements are normal. Visual jc are full. Gross visual acuity is normal. Facial motility and strength, facial sensation, oropharyngeal lingual movements are normal and speech is clear. Gait, station and coordination are absolutely normal. There is no spasticity, ataxia, drift, pronation sign, tremor, tics, or choreiform activity and she can get up on her heels and stand on her toes, but again push for tandem gait. Reflexes are all 1+ symmetrical. Toes are downgoing. No Jennifer signs are seen. Strength testing is normal and sensation is intact to vibration, light touch, and temperature. At the present time, we have no clear explanation for the cause of the very small punctate CVA involving the right temporoparietal region. The history suggests that she may have had a warning TIA back on Saturday and that the current symptoms waxed and waned a bit before they became fixed. Historically, they would seem to have been in the same distribution and despite the negative CTAs, one wonder is about a localized small intracranial vascular event involving subcortical vessels. We need to be certain there is no atrial fibrillation or cardiogenic source of emboli frankly with intracranial disease, I would have no problems placing her on at least a baby aspirin a day in conjunction with her Coumadin and continuing this for perhaps a month or more. I will be going off service and Dr. Schneider will be coming tomorrow, but if the echocardiogram shows no clear source of emboli and the patient is feeling well and has had no further neurologic events, she could be discharged in the morning and followed up in Dr. Singh's clinic in about 6 weeks' time for review of the current issues and a decision made then about whether to pursue the aspirin therapy in conjunction with the Coumadin or not. ALIYA
[2018-12-12 06:24] LABS: Basophils # (auto) 0.02 K/uL (0-0.2); Basophils % (auto) 0.4 %; Eosinophils # (auto) 0.07 K/uL (0-0.5); Eosinophils % (auto) 1.3 %; Hematocrit (blood only) 48.1 % (37-47); Hemoglobin 16.4 g/dL (12.0-16.0); Immature Granulocytes # (auto) 0.01 K/uL (0.00-0.02); Immature Granulocytes % (auto) 0.2 %; Lymphocytes # (auto) 1.92 K/uL (1.2-3.4); Lymphocytes % (auto) 34.3 %; Mean Corpuscular Hgb Conc 34.1 g/dL (32-36); Mean Corpuscular Volume 88.4 fL (80-100); Mean Platelet Volume 11.6 fL (7.4-10.4); Monocytes # (auto) 0.34 K/uL (0.11-0.59); Monocytes % (auto) 6.1 %; Neutrophils # (auto) 3.24 K/uL (1.4-6.5); Neutrophils % (auto) 57.7 %; Platelet Count 100 K/uL (130-400); RDW Coefficient of Variation 13.6 % (11.5-14.5); RDW Standard Deviation 44.1 fL (36.4-46.3); Red Blood Count 5.44 M/uL (4.2-5.4)
[2018-12-12 06:38] LABS: INR 2.7 (0.9-1.1); Prothrombin Time 25.9 Seconds (9.0-12.0)
[2018-12-12 07:00] LABS: BUN Creatinine Ratio 19.1 (10-20); Calcium 8.6 mg/dl (8.5-10.1); Est GFR (Non-African American) 96.6
[2018-12-12] MEDS: FOLIC ACID 1 MG TAB PO SCH (08:15)
[2018-12-12] MEDS: PANTOprazole 40 MG TAB PO SCH (08:15)
[2018-12-12] MEDS: ATENOLOL 50 MG TABLET PO SCH (08:15)
[2018-12-12] MEDS: acetaZOLAMIDE 500 MG CAPCR PO SCH (08:15)
[2018-12-12] MEDS: CYANOCOBALAMIN 500 MCG TABLET (VITAMIN B-12) PO SCH (08:15)
[2018-12-12] MEDS: FUROSEMIDE 40 MG TAB PO SCH (08:15)
[2018-12-12] MEDS: ASPIRIN 81 MG ECTAB PO SCH (08:15)
[2018-12-12] MEDS: INSULIN ASPART 100 UNITS/ML 3 ML PEN SC SCH ×2 (08:16→11:59)
[2018-12-12] MEDS ORDERED: ATORVASTATIN 40 MG TAB PO SCH (09:00)
[2018-12-12] MEDS: AMLODIPINE BESYLATE 5 MG TAB PO SCH (13:35)
[2018-12-12] MEDS ORDERED: STROKE PATIENT DISCHARGE STA (15:58)
[2018-12-12] MEDS: WARFARIN SOD 5 MG TAB PO SCH (15:59)
--- NOTE | 2018-12-12 16:09 | Discharge Summary ---
Date of Service December 12, 2018 Admission HPI Per Admitting Provider PT is 58 y/o F with PMH HTN, dyslipidemia, PE on Coumadin, h/o MTHFR mutation, DM II, pulmonary hypertension, pseudotumor cerebri, sleep apnea, tobacco use presented to ER with complaint of left arm and left leg weakness. Patient states 4 days ago she noticed some left arm weakness which lasted approximately 15 minutes and resolved. Patient states today around 11 AM he noticed left arm and leg felt "funny" and left arm and leg felt weak. She also had associated lightheadedness. Patient states symptoms lasted approximately 30 minutes and resolved. Reports return of symptoms around 1 PM today with left arm and left leg weakness, lightheadedness, nausea. Patient reports symptoms seem to wax and wane and then became more consistent. She reports she feels like her speech is slurred. Patient denies any vomiting. States yesterday had 1-2 episodes of diarrhea which she relates to eating ice cream. No diarrhea today. Chronic leg edema which has improved over past 8 months with intentional 50lb weight loss. Denies SOB, orthopnea or PND. Denies fever/chills, diaphoresis, ROMERO, syncope, vision changes, neck pain, CP, palpitations, cough, sore throat, choking, otalgia, rhinorrhea, abdominal pain, paresthesias, facial drooping, rashes, urinary symptoms. Principal Diagnosis Acute CVA Discharge Exam Constitutional WD/WN, vitals as above well developed; no acute distress Eyes PERRL, conjunctivae normal, anicteric sclerae ENMT external ear and nose normal, oropharynx normal Neck trachea midline, no thyromegaly Respiratory normal respiratory effort, lungs clear to auscultation Cardiovascular RRR, no murmur, no edema Gastrointestinal (Abdomen) normal bowel sounds, soft, nontender, no hepatosplenomegaly Musculoskeletal no cyanosis or clubbing, extremities motor strength 5/5 Skin no rashes, warm and dry Neurologic PERRL, EOMI, accommodation nl, no face palsy, no dysarthria Psychiatric A+Ox3, euthymic affect Discharge Data Allergies Allergy/AdvReac Type Severity Reaction Status Date / Time moxifloxacin Allergy Intermediate CHEST PAIN Verified 12/10/18 19:03 RAPID HEART BEAT HIGH BP RASH Penicillins Allergy Intermediate HIVES Verified 12/10/18 19:03 Sulfa (Sulfonamide Allergy Intermediate HIVES Verified 12/10/18 19:03 Antibiotics) doxycycline AdvReac Intermediate Pseudo Unverified 12/10/18 19:03 tumor cerebri neomycin AdvReac Unknown ITCHY Verified 12/10/18 19:03 prednisone AdvReac Unknown TACHYCARDIA Verified 12/10/18 19:04 DECONGESTANTS AdvReac Unknown TACHYCARDIA Uncoded 12/10/18 19:04 Consultations 12/10/18 20:07 ED Decision to Admit Stat 12/10/18 21:24 Consult Case Management - Discharge Planning Routine Consult Neurology Routine 12/11/18 07:00 Consult Anesthesiology Routine Procedures Performed Operation Date: 12/11/18 12:00 Actual Procedures p MRI with Anesthesia Sedation - José Miguel Spears MD Ordered Studies 12/10/18 16:48 CT head/brain wo con Stat 12/10/18 16:49 CT angio head w con Stat CT angio neck with con Stat 12/11/18 06:16 MR brain wo/w con Routine Hospital Course (1) Left arm weakness: (2) Left leg weakness: Acute CVA: --MRI Brain:5 mm focus of restricted water diffusion within the right medial temporal lobe indicative of an acute/subacute infarct 2. A second tiny focus of increased signal on diffusion-weighted images in the left medial temporal lobe, and may be artifactual -- CT head: No acute intracranial findings. -- Neck CTA: Atherosclerotic plaque results in approximately 50% stenosis of the origins of the bilateral ECAs. This is unlikely to be of clinical concern. No significant stenosis of the origin or course of the right ICA. Approximately 25% stenosis of the origin of the left ICA. This is unlikely to be hemodynamically significant. No dissection or focal vessel occlusion. --Head CTA:No evidence of aneurysm, focal vessel occlusion, or significant stenosis of the intracranial arteries. -- ECHO: No wall motion abnormality, ejection fraction 60 to 65% Speech and swallow eval appreciated, no dysphagia noted, patient is resumed regular diet with thin liquids PT/OT evaluation appreciated at baseline functional status without any neurological deficit: recommends to return home Started on aspirin 81 mg daily, high intensity statin -Lipitor 40 mg daily Fasting lipid panel shows LDL 176, goal LDL less than 70 Patient will need repeat fasting lipid panel checked in 6 to 12 months On chronic Coumadin for hypercoagulable status/history of PE Appreciate input from neurology Patient does not have any focal neurological deficit And agreeable to adding low-dose aspirin along with Coumadin Continue high-dose atorvastatin And will follow-up with neurology in clinic in 6 weeks (3) Hypokalemia: Corrected (4) Pseudotumor cerebri: Denies vision changes, ROMERO, tinnitus Continue Diamox Follows with neurology Dr. Ana Singh 6-week follow-up scheduled on January 01 (5) History of pulmonary embolism: H/O PE in 2009. Hx MTHFR Mutation. On chronic Coumadin. INR therapeutic (6) Hypertension: BP stable Continue outpatient meds (7) Diabetes mellitus, type II: A1c: 5.9 on 10/18/18 Novolog sliding scale per protocol General very resumed on discharge (8) Pulmonary hypertension: Continue lasix (9) Sleep apnea: Hx sleep apnea. Does not use CPAP Morbid Obesity: BMI: 45 Metrology Specialist lifestyle changes (10) Tobacco use: Smoking cessation encouraged Refuses nicotine patch DVT Px On Coumadin Code Status Full Code Disposition: Stable to be discharged home today Total Time Total Time Spent Total Time Spent (In Minutes): Approximately 40 minutes Discharge Plan Discharge Items Patient Disposition: Home - Self-Care Reason For Visit: L EXTREMITY WEAKNESS Discharge Diagnosis: acute cva Discharge Goals: Decrease discomfort and Therapeutic intervention Activity: Resume your previous activity Non-emergency contact: Primary Care Provider Call non-emergency contact if: you have any medication questions Follow-up/Referrals: Lexi Valdes MD [Physician] - 12/15/18 10:20 am Ana Singh MD [Physician] - 01/01/19 2:45 pm Diet: Heart Healthy Addtl Provider Instructions: Hospital follow-up with Dr. Portillo on Saturday, December 15, 2018 at 10:20 AM Neurology follow-up with Dr. Carson on January 01, 2019 at 2:45 PM Risk Factors for Stroke: You can reduce your chances of stroke by working with your medical provider to adopt a healthy lifestyle. Some specific ways to lower your chance of stroke are: * If you are a smoker, now is the time to stop smoking cigarettes * If you are diabetic, improve the control of your blood sugars * Avoid excessive amounts of alcohol * Control high blood pressure * Lose weight if you are overweight * Be sure to lead an active lifestyle * Eat a healthy diet low in salt, cholesterol and fat You should know about other risk factors for stroke that you are unable to control. These include: * Age 55 years or older * Male gender * Certain racial groups: , or / * Family History of Stroke, Mini stroke or Heart Attack * Sickle Cell Disease Follow Up: It is important for you to keep your follow up appointments with your medical provider. Who to Call and When: Medical Emergencies: Call 911 immediately if you experience any of the following warning signs and symptoms of Stroke: * Sudden numbness or weakness of the face, arm or leg, especially on one side of the body * Sudden confusion, trouble speaking or understanding * Sudden trouble seeing in one or both eyes * Sudden trouble walking, dizziness, loss of balance or coordination * Sudden severe headache with no cause Do not delay calling 911 if you experience any warning signs or symptoms of a stroke. Delay in seeking medical attention may affect what treatments can be given to you. . Prescriptions: New aspirin [Ecotrin Low Strength] 81 mg Tablet,Delayed Release (Dr/Ec) 81 mg PO QAM 30 Days Qty: 30 RF: 3 atorvastatin 40 mg Tablet 40 mg PO QAM 40 Days Qty: 40 RF: 3 Continued warfarin 5 mg tablet 5 mg PO 6XWK RF: 0 warfarin 5 mg tablet 2.5 mg PO .ONCE WEEKLY RF: 0 Januvia 100 mg tablet 100 mg PO DAILY RF: 0 ranitidine HCl 300 mg tablet 300 mg PO HS RF: 0 omeprazole 40 mg capsule,delayed release(DR/EC) 40 mg PO QAM RF: 0 cyanocobalamin (vitamin B-12) 1,000 mcg Tablet 1,000 mcg PO DAILY RF: 0 furosemide 40 mg tablet 40 mg PO BID RF: 0 atenolol 100 mg tablet 50 mg PO BID RF: 0 acetazolamide 500 mg capsule, extended release 500 mg PO DAILY RF: 0 amlodipine 2.5 mg tablet 2.5 mg PO .DAILY IN AFTERNOON RF: 0 folic acid 1 mg Tablet 1 mg PO DAILY RF: 0 nystatin 100,000 unit/gram cream 1 applic topical BID PRN (Reason: .GROIN RASH) RF: 0 Stand-Alone Forms: Medications to Prevent Stroke, [facility] Discharge Orders: Discharge Order (Routine); Ordered 12/12/18 Ordered By: Elissa Bahena Admission Data Admit Date/Time: 12/10/18 20:17 Attending Provider: Elissa Bahena Admit Provider: Suleiman Torres Primary Care Provider: Christ Dunn Other Providers: Ashwin Michaels ; Suleiman Torres ; Jean Reis ; José Miguel Spears Service: Telemetry Medical Other Interventions: Discharge Summary Assessment (RN) Last Done: 12/12/18 16:13
--- NOTE | 2018-12-12 16:23 | Pharmacy Report ---
Pharmacist Stroke Counseling - Date of Service December 12, 2018 - Scope: Pharmacy has been consulted to provide medication discharge counseling for this patient admitted with ischemic stroke as per the Pharmacist Discharge Counseling for Stroke Patients Protocol. - Medications on Discharge: Home Medications Medication Instructions Recorded Confirmed Januvia 100 mg PO DAILY 12/10/18 12/10/18 acetazolamide 500 mg PO DAILY 12/10/18 12/10/18 amlodipine 2.5 mg PO .DAILY IN AFTERNOON 12/10/18 12/10/18 atenolol 50 mg PO BID 12/10/18 12/10/18 cyanocobalamin (vitamin B-12) 1,000 mcg PO DAILY 12/10/18 12/10/18 folic acid 1 mg PO DAILY 12/10/18 12/10/18 furosemide 40 mg PO BID 12/10/18 12/10/18 nystatin 1 applic TOPICAL BID PRN 12/10/18 12/10/18 omeprazole 40 mg PO QAM 12/10/18 12/10/18 ranitidine HCl 300 mg PO HS 12/10/18 12/10/18 warfarin 2.5 mg PO .ONCE WEEKLY 12/10/18 12/10/18 warfarin 5 mg PO 6XWK 12/10/18 12/10/18 New Rx's Medication Instructions Recorded aspirin [Ecotrin Low Strength] 81 mg PO QAM 30 Days #30 tab 12/12/18 atorvastatin 40 mg PO QAM 40 Days #40 tab 12/12/18 - Action: The above medications, specifically ones for stroke treatment/prophylaxis, have been reviewed in detail with the patient prior to discharge. This includes indication, common adverse reactions, drug interactions, and medication administration. Medication counseling has been employed using the teach-back method to ensure understanding. - Outcome: The patient has demonstrated understanding of the medications. Please note, they are aware that the pharmacist will call them within 72 hours post-discharge to confirm that the appropriate medications are being taken and answer any further medication related questions the patient might have at that time. Contact information Individual to be contacted: Patient Phone number: [phone] Best time to call: anytime Saturday except during patient's appt (10:20am) Additional comments: Patient did mention that she thinks she has tried atorvastatin in the past and had excruciating arm and leg pains. I educated patient on side effects of statins and told her it was likely it was a statin causing those side effects she experienced and told her to try taking it but to watch for these side effects again, she will also discuss this with Dr Portillo on Saturday. She did receive one dose of atorvastin 40mg today. Thank you for allowing pharmacy to be involved in the care of this patient. Please call [phone] with any additional questions
--- NOTE | 2018-12-15 14:36 | Pharmacy Report ---
Pharmacist Post D/C Phone Note - Phone Note: Date of phone call: December 15, 2018. The patient and/or patient insurance follow up representative(s) were unable to be reached for a follow-up phone call within the 72 hour time frame. Discharge counseling pharmacist contact information has already been provided to the patient should questions arise. Thank you for allowing us to be involved in the care of this patient. - Home Medications: Home Medications Medication Instructions Recorded Confirmed Januvia 100 mg PO DAILY 12/10/18 12/10/18 acetazolamide 500 mg PO DAILY 12/10/18 12/10/18 amlodipine 2.5 mg PO .DAILY IN AFTERNOON 12/10/18 12/10/18 atenolol 50 mg PO BID 12/10/18 12/10/18 cyanocobalamin (vitamin B-12) 1,000 mcg PO DAILY 12/10/18 12/10/18 folic acid 1 mg PO DAILY 12/10/18 12/10/18 furosemide 40 mg PO BID 12/10/18 12/10/18 nystatin 1 applic TOPICAL BID PRN 12/10/18 12/10/18 omeprazole 40 mg PO QAM 12/10/18 12/10/18 ranitidine HCl 300 mg PO HS 12/10/18 12/10/18 warfarin 2.5 mg PO .ONCE WEEKLY 12/10/18 12/10/18 warfarin 5 mg PO 6XWK 12/10/18 12/10/18 New Rx's Medication Instructions Recorded aspirin [Ecotrin Low Strength] 81 mg PO QAM 30 Days #30 tab 12/12/18 atorvastatin 40 mg PO QAM 40 Days #40 tab 12/12/18
[2018-12-15] MEDS ORDERED: WARFARIN SOD 2.5 MG TAB PO SCH (16:00)
== END 2018-12-12 17:25 | disposition home or self-care (01) | DRG 65 ==
LOC: ED 16:23 → SUATTDRO 20:17 → 2N 20:17

== ENCOUNTER 2018-12-25 20:12 | Inpatient (IN) ==
--- NOTE | 2018-12-25 20:54 | Emergency Department Note ---
Entered by Arjun Lazo acting as a scribe for Nic Peña MD History of Present Illness General Chief complaint: Stroke/CVA Symptoms Stated complaint: NUMBESS L SIDE, WEAKNESS, HAD MINI STROKE 2 WKS AG Time Seen by Provider: 12/25/18 20:22 Source: patient Limitations: no limitations History of Present Illness Onset (ago): day(s) (last night) Location: left (arm and leg) Severity: similar to prior episodes Pain Consistency: + intermittent Maximum Pain Intensity: 0 Associated symptoms: + weakness; no chest pain and no shortness of breath The patient is a 58 year old male who presents to the Emergency Room with complaints of intermittent weakness starting last night. The patient states she had a mini stroke 2 weeks ago. She states she was admitted. She notes she had left-sided weakness at that time and at one point could not move her leg. She states the stroke lasted 12 hours and after she went home she felt fine until yesterday. She notes her symptoms resolved last night but she got them again this morning and have been worsening since. She states her left leg and left arm are weak. 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 She states she has been on Crestor before and this caused her to have muscle weakness. She notes she is diabetic and her blood sugar is fine. She denies chest pain and SOB. Home Medications Home Medications Medication Instructions Recorded Confirmed Type Januvia 100 mg PO DAILY 12/10/18 12/25/18 History acetazolamide 500 mg PO DAILY 12/10/18 12/25/18 History atenolol 50 mg PO BID 12/10/18 12/25/18 History cyanocobalamin (vitamin B-12) 1,000 mcg PO DAILY 12/10/18 12/25/18 History folic acid 1 mg PO DAILY 12/10/18 12/25/18 History furosemide 40 mg PO BID 12/10/18 12/25/18 History nystatin 1 applic TOPICAL BID PRN 12/10/18 12/25/18 History omeprazole 40 mg PO QAM 12/10/18 12/25/18 History ranitidine HCl 300 mg PO HS 12/10/18 12/25/18 History warfarin 2.5 mg PO .ONCE WEEKLY 12/10/18 12/25/18 History warfarin 5 mg PO 6XWK 12/10/18 12/25/18 History aspirin [Ecotrin Low Strength] 81 mg PO QAM 30 Days #30 tab 12/12/18 12/25/18 Rx atorvastatin 40 mg PO QAM 40 Days #40 tab 12/12/18 12/25/18 Rx amlodipine 10 mg PO DAILY 12/25/18 12/25/18 History rosuvastatin 20 mg PO DAILY 12/25/18 12/25/18 History Allergies Allergy/AdvReac Type Severity Reaction Status Date / Time moxifloxacin Allergy Intermediate CHEST PAIN Verified 12/25/18 21:28 RAPID HEART BEAT HIGH BP RASH Penicillins Allergy Intermediate HIVES Verified 12/25/18 21:28 Sulfa (Sulfonamide Allergy Intermediate HIVES Verified 12/25/18 21:28 Antibiotics) doxycycline AdvReac Intermediate Pseudo Unverified 12/25/18 21:28 tumor cerebri neomycin AdvReac Unknown ITCHY Verified 12/25/18 21:28 prednisone AdvReac Unknown TACHYCARDIA Verified 12/25/18 21:28 DECONGESTANTS AdvReac Unknown TACHYCARDIA Uncoded 12/25/18 21:28 Past Med/Surg History Medical History Sleep apnea (Chronic) Tobacco use (Chronic) Pulmonary hypertension (Chronic) MTHFR gene mutation (Chronic) Pseudotumor cerebri (Chronic) History of pulmonary embolism (Chronic) Dyslipidemia (Chronic) Diabetes mellitus, type II (Chronic) Hypertension (Chronic) Surgical History History of carpal tunnel surgery (Chronic) Family History Other Diabetes Hypertension Social History Preferred Language: Urdu Communication Ability: Effective Beliefs That Will Affect Care: None marital status: Single Current Living Situation: Alone Feels Safe at Home: Yes Smoking Status: Current every day smoker Tobacco Type: cigarettes Cigarettes Per Day: 30 Hx Alcohol Use: No Hx Substance Use: No Review of Systems See HPI for pertinent positives & negatives. and A total of 10 systems reviewed and were otherwise negative Physical Exam Vital Signs Vital Signs - 24 hr 12/25/18 20:13 12/25/18 21:53 12/25/18 23:36 Temperature 36.9 C Temperature Source Oral Sepsis Recent Fever Within 48 Hours No Sepsis New/Unexplained Change in Mental Status No Sepsis Action Taken by Nursing No Action Required Pulse Rate 77 Pulse Rate [Right Finger] 79 70 Pulse Rhythm [Right Finger] Regular Regular Pulse Strength [Right Finger] Normal Normal Respiratory Rate 18 18 16 Respiratory Effort / Characteristics Non-Labored Spontaneous Non-Labored Non-Labored Respiratory Depth Normal Normal Normal Respiratory Pattern Regular Regular Regular Blood Pressure 145/74 H Blood Pressure [Right Arm] 152/73 H 141/65 H Blood Pressure Mean 97 Blood Pressure Mean [Right Arm] 99 90 Blood Pressure Position Sitting Blood Pressure Position [Right Arm] Lying Sitting Pulse Oximetry 96 98 95 Oxygen Delivery Method Room Air Room Air Room Air 12/26/18 00:53 Temperature Temperature Source Sepsis Recent Fever Within 48 Hours Sepsis New/Unexplained Change in Mental Status Sepsis Action Taken by Nursing Pulse Rate Pulse Rate [Right Finger] 71 Pulse Rhythm [Right Finger] Regular Pulse Strength [Right Finger] Normal Respiratory Rate 16 Respiratory Effort / Characteristics Non-Labored Respiratory Depth Normal Respiratory Pattern Regular Blood Pressure Blood Pressure [Right Arm] 161/89 H Blood Pressure Mean Blood Pressure Mean [Right Arm] 113 Blood Pressure Position Blood Pressure Position [Right Arm] Lying Pulse Oximetry 95 Oxygen Delivery Method Room Air General: Non-ill appearing middle-aged female in no acute distress. HEENT: Normal cephalic atraumatic. Pupils are equal round and reactive to light. Extraocular movements are intact. Oropharynx is pink with moist mucous membranes. No swelling of the mouth lips or tongue. Neck: Supple with a midline trachea. No meningeal signs or stiffness, no JVD or bruits. No Stridor. Chest: Clear to auscultation bilaterally. No wheezes or rhonchi. No increased work of breathing. Heart: regular rate and rhythm. Abdomen: Soft nontender, nondistended without rebound guarding or rigidity. Extremities: No cyanosis clubbing or edema. No calf tenderness or asymmetry Spine/Back. Non tender to palpation. No CVA tenderness Skin: Good turgor without rashes. Neurologic exam: Cranial nerves two through 12 are intact. Motor and sensation are intact and symmetrical throughout. No pronator drift. Says she feels weaker when she moves her right arm but that is not seen on exam. No hand clumsiness. Course 2027: The patient was evaluated in room B10, and a complete history and physical examination were performed. 2307: I discussed the patient's case with Dr. Davis Aaron [facility] Hospitalist. He will evaluate the patient for further management Administered Medications Lactated Ringer's (Lr) 1,000 mls @ 200 mls/hr IV .Q5H ONE Stop: 12/26/18 04:19 Last Admin: 12/25/18 23:35 Dose: 200 mls/hr Documented by: [id number] Discontinued Medications Clopidogrel Bisulfate (Plavix) 75 mg PO NOW STA Stop: 12/26/18 01:02 Last Admin: 12/26/18 01:31 Dose: 75 mg Documented by: [id number] Potassium Chloride (Klor-Con M20) 40 meq PO NOW STA Stop: 12/25/18 23:21 Last Admin: 12/25/18 23:35 Dose: 40 meq Documented by: [id number] Medical Decision Making Differential Diagnosis Differential Diagnosis: TIA, intracranial hemorrhage, CVA, and electrolyte imbalance. Medical Records Attestation: I reviewed the patient's medical records. Home Medications Current Medication List: was personally reviewed by me Laboratory Data Attestation: I reviewed the patient's lab results. Result diagrams: 12/25/18 20:44 12/25/18 20:44 Lab Results 12/25/18 12/25/18 12/25/18 Range/Units 20:27 20:44 20:44 WBC 7.01 (4.8-10.8) K/uL RBC 5.77 H (4.2-5.4) M/uL Hgb 18.0 H (12.0-16.0) g/dL Hct 50.2 H (37-47) % MCV 87.0 (80-100) fL MCH 31.2 (25-34) pg MCHC 35.9 (32-36) g/dL RDW Std Deviation 42.4 (36.4-46.3) fL RDW Coeff of Teodoro 13.5 (11.5-14.5) % Plt Count 143 (130-400) K/uL MPV 12.4 H (7.4-10.4) fL Immature Gran % (Auto) 0.3 % Neut % (Auto) 69.8 % Lymph % (Auto) 23.1 % Peach % (Auto) 5.8 % Eos % (Auto) 0.9 % Baso % (Auto) 0.1 % Immature Gran # (Auto) 0.02 (0.00-0.02) K/uL Neut # (Auto) 4.89 (1.4-6.5) K/uL Lymph # (Auto) 1.62 (1.2-3.4) K/uL [place] # (Auto) 0.41 (0.11-0.59) K/uL Eos # (Auto) 0.06 (0-0.5) K/uL Baso # (Auto) 0.01 (0-0.2) K/uL PT 27.1 H (9.0-12.0) Seconds INR 2.8 H (0.9-1.1) APTT 40.2 H (21.0-31.0) Seconds PTT Ratio 1.5 Sodium (136-145) mmol/L Potassium (3.5-5.1) mmol/L Chloride (98-107) mmol/L Carbon Dioxide (21-32) mmol/L Anion Gap (3-11) BUN (7-18) mg/dl Creatinine (0.6-1.2) mg/dl Est Cr Clr Drug Dosing ml/min Est GFR ( Amer) Est GFR (Non-Af Amer) BUN/Creatinine Ratio (10-20) Glucose (70-99) mg/dl POC Glucose (70-99) Calcium (8.5-10.1) mg/dl Magnesium (1.8-2.4) mg/dl Total Bilirubin (0.2-1) mg/dl AST (15-37) U/L ALT (12-78) U/L Alkaline Phosphatase (45-117) U/L Troponin I (0-0.045) ng/ml Total Protein (6.4-8.2) gm/dl Albumin (3.4-5.0) gm/dl Globulin (2.5-4.0) gm/dl Albumin/Globulin Ratio (0.9-2) Urine Color Yellow Urine Appearance Clear (Clear) Urine pH 6.5 (4.5-7.5) Ur Specific Tye 1.011 (1.000-1.030) Urine Protein Negative (Negative) Urine Glucose (UA) Negative (Negative) Urine Ketones Negative (Negative) Urine Blood Negative (Negative) Urine Nitrite Negative (Negative) Urine Bilirubin Negative (Negative) Urine Urobilinogen Negative (Negative) Ur Leukocyte Esterase Negative (Negative) 12/25/18 12/25/18 Range/Units 20:44 20:49 WBC (4.8-10.8) K/uL RBC (4.2-5.4) M/uL Hgb (12.0-16.0) g/dL Hct (37-47) % MCV (80-100) fL MCH (25-34) pg MCHC (32-36) g/dL RDW Std Deviation (36.4-46.3) fL RDW Coeff of Teodoro (11.5-14.5) % Plt Count (130-400) K/uL MPV (7.4-10.4) fL Immature Gran % (Auto) % Neut % (Auto) % Lymph % (Auto) % [place] % (Auto) % Eos % (Auto) % Baso % (Auto) % Immature Gran # (Auto) (0.00-0.02) K/uL Neut # (Auto) (1.4-6.5) K/uL Lymph # (Auto) (1.2-3.4) K/uL [place] # (Auto) (0.11-0.59) K/uL Eos # (Auto) (0-0.5) K/uL Baso # (Auto) (0-0.2) K/uL PT (9.0-12.0) Seconds INR (0.9-1.1) APTT (21.0-31.0) Seconds PTT Ratio Sodium 141 (136-145) mmol/L Potassium 3.2 L (3.5-5.1) mmol/L Chloride 108 H (98-107) mmol/L Carbon Dioxide 27 (21-32) mmol/L Anion Gap 7.0 (3-11) BUN 8 (7-18) mg/dl Creatinine 0.83 (0.6-1.2) mg/dl Est Cr Clr Drug Dosing 94.5 ml/min Est GFR ( Amer) 90.7 Est GFR (Non-Af Amer) 78.3 BUN/Creatinine Ratio 10.0 (10-20) Glucose 194 H (70-99) mg/dl POC Glucose 188 H (70-99) Calcium 9.1 (8.5-10.1) mg/dl Magnesium 2.0 (1.8-2.4) mg/dl Total Bilirubin 1.1 H (0.2-1) mg/dl AST 21 (15-37) U/L ALT 23 (12-78) U/L Alkaline Phosphatase 87 (45-117) U/L Troponin I < 0.015 (0-0.045) ng/ml Total Protein 7.5 (6.4-8.2) gm/dl Albumin 3.7 (3.4-5.0) gm/dl Globulin 3.8 (2.5-4.0) gm/dl Albumin/Globulin Ratio 1.0 (0.9-2) Urine Color Urine Appearance (Clear) Urine pH (4.5-7.5) Ur Specific [place] (1.000-1.030) Urine Protein (Negative) Urine Glucose (UA) (Negative) Urine Ketones (Negative) Urine Blood (Negative) Urine Nitrite (Negative) Urine Bilirubin (Negative) Urine Urobilinogen (Negative) Ur Leukocyte Esterase (Negative) Imaging Data Radiologist's Impression: Radiology results as stated below per my review and the radiologist's interpretation: CT head/brain wo con CLINICAL HISTORY: 58 years-old Female presenting with Stroke evaluation . TECHNIQUE: Multidetector CT imaging of the head was performed without the use of intravenous contrast. IV contrast: None. One or more dose lowering techniques were used consistent with the principles of ALARA (as low as reasonably achievable), including automatic exposure control, mA or kV adjustment to individual patient size, and/or use of iterative reconstruction. COMPARISON: 12/10/2018 and MRI brain from 12/11/2018. CT DOSE (mGy.cm): The estimated cumulative dose is 537.48 mGy.cm. FINDINGS: Soup Person topogram: Unremarkable. Ventricles and sulci normal in size. No hemorrhage. Brain parenchyma normal in appearance with preserved neumann-white differentiation. No acute territorial infarct. No mass effect or midline shift. No extra-axial fluid collection. Paranasal sinuses and mastoid air cells clear. Calvarium intact. IMPRESSION: 1. No acute intracranial abnormality. Electronically signed by: Raman Ly M.D. 12/25/2018 9:11 PM ECG Data Attestation: I personally reviewed and interpreted this ECG as follows: Indication: weakness Rate (beats per minute): 74 Rhythm: sinus rhythm Findings: no acute ischemic change and no ectopy Comparison ECG Date: from (12/11/18) Change: no significant change Blood Pressure Blood Pressure Findings: Elevated blood pressure Blood Pressure Disposition: did not require urgent referral MDM Narrative This patient comes in as described above she had a stroke about 2 weeks ago. She has been on Coumadin and aspirin since then. Over the last 24 hours she feels her left arm and leg feel weak like they did when she had a stroke. On exam she has no significant deficits. She has had no fall or trauma. Given the fact that it has been about 24 hours and she would not likely be a TPA candidate anyways given the Coumadin I did not call a stroke alert. Multiple blood testing was obtained as well as CAT scan of her head, EKG, and chest x-ray. CAT scan was unremarkable. EKG was unremarkable. She has no acute electrode or metabolic abnormalities. I do think she needs to be admitted/observed. I am concerned that her neuro deficits are new with the last 24 hours or so and she may have had additional stroke she may need further MRI or neurological consultation. I have consulted Dr. Berumen to see her in the ER for these measures. Impression & Plan Left-sided weakness, CVA (cerebrovascular accident), Anticoagulated on Coumadin Discharge Plan Visit Data Chief Complaint: Stroke/CVA Symptoms Stated Complaint: NUMBESS L SIDE, WEAKNESS, HAD MINI STROKE 2 WKS AG ED Provider: Nic Peña Discharge Problem: Left-sided weakness, CVA (cerebrovascular accident), Anticoagulated on Coumadin Discharge Instructions Interventions: ED Discharge Assessment Last Done: 12/26/18 01:40 Discharge Problem: CVA (cerebrovascular accident) Qualifiers: CVA mechanism: unspecified Qualified Code(s): I63.9 - Cerebral infarction, unspecified The scribe's documentation has been prepared under my direction and personally reviewed by me in its entirety. I confirm that the note above accurately reflects all work, treatment, procedures, and medical decision making performed by me.
[2018-12-25 21:01] LABS: Basophils # (auto) 0.01 K/uL (0-0.2); Basophils % (auto) 0.1 %; Eosinophils # (auto) 0.06 K/uL (0-0.5); Eosinophils % (auto) 0.9 %; Hematocrit (blood only) 50.2 % (37-47); Immature Granulocytes # (auto) 0.02 K/uL (0.00-0.02); Immature Granulocytes % (auto) 0.3 %; Lymphocytes # (auto) 1.62 K/uL (1.2-3.4); Lymphocytes % (auto) 23.1 %; Mean Corpuscular Hgb Conc 35.9 g/dL (32-36); Mean Platelet Volume 12.4 fL (7.4-10.4); Monocytes # (auto) 0.41 K/uL (0.11-0.59); Monocytes % (auto) 5.8 %; Neutrophils # (auto) 4.89 K/uL (1.4-6.5); Neutrophils % (auto) 69.8 %; Platelet Count 143 K/uL (130-400); RDW Coefficient of Variation 13.5 % (11.5-14.5); RDW Standard Deviation 42.4 fL (36.4-46.3); Red Blood Count 5.77 M/uL (4.2-5.4); White Blood Count 7.01 K/uL (4.8-10.8)
--- NOTE | 2018-12-25 21:13 | CT Scan Report ---
CT head/brain wo con CLINICAL HISTORY: 58 years-old Female presenting with Stroke evaluation . TECHNIQUE: Multidetector CT imaging of the head was performed without the use of intravenous contrast . IV contrast: None. One or more dose lowering techniques were used consistent with the principles of ALARA (as low as reasonably achievable), including automatic exposure control, mA or kV adjustment t o individual patient size, and/or use of iterative reconstruction. COMPARISON: 12/10/2018 and MRI brain from 12/11/2018. CT DOSE (mGy.cm): The estimated cumulative dose is 537.48 mGy.cm. FINDINGS: Foreign Legal Consultant topogram: Unremarkable. Ventricles and sulci normal in size. No hemorrhage. Brain parenchyma normal in appearance with preser chino neumann-white differentiation. No acute territorial infarct. No mass effect or midline shift. No ext ra-axial fluid collection. Paranasal sinuses and mastoid air cells clear. Calvarium intact. IMPRESSION: 1. No acute intracranial abnormality. Electronically signed by: Raman Ly M.D. 12/25/2018 9:11 PM
[2018-12-25 21:20] LABS: INR 2.8 (0.9-1.1); Partial Thromboplastin Ratio 1.5; Partial Thromboplastin Time 40.2 Seconds (21.0-31.0); Prothrombin Time 27.1 Seconds (9.0-12.0)
[2018-12-25 21:22] LABS: Alanine Aminotransferase 23 U/L (12-78); Albumin Level 3.7 gm/dl (3.4-5.0); Blood Urea Nitrogen 8 mg/dl (7-18); Calcium 9.1 mg/dl (8.5-10.1); Carbon Dioxide 27 mmol/L (21-32); Chloride 108 mmol/L (98-107); Creatinine Clr Calc Pharmacy 94.5 ml/min; Est GFR (African American) 90.7; Est GFR (Non-African American) 78.3; Glucose 194 mg/dl (70-99)
[2018-12-25 21:28] LABS: Alkaline Phosphatase 87 U/L (45-117); Bilirubin,Total 1.1 mg/dl (0.2-1); Globulin 3.8 gm/dl (2.5-4.0); Potassium 3.2 mmol/L (3.5-5.1); Sodium 141 mmol/L (136-145); Total Protein 7.5 gm/dl (6.4-8.2); Troponin I < 0.015 ng/ml (0-0.045)
[2018-12-25 21:32] LABS: Aspartate Aminotransferase 21 U/L (15-37)
[2018-12-25] MEDS ORDERED: POTASSIUM CHLORIDE 20 MEQ TABCR PO STA (23:20)
[2018-12-25] MEDS ORDERED: LACTATED RINGER'S 1,000 ML IV ONE (23:20)
--- NOTE | 2018-12-26 00:59 | History & Physical Report ---
Date of Service December 26, 2018 Assessment & Plan (1) Left-sided weakness: Possible recurrent CVA hx hypercoagulable state (hx PE/DVT, MTHFR mutation as per records) on Coumadin, INR therapeutic ? Aspirin failure hypertension, elevated secondary to intracranial process hyperlipidemia statin Rx pseudotumor cerebri on acetazolamide Rx DM2 on oral medications, well-controlled as of recent outpatient hemoglobin A1c of 5.23 September 2018 ongoing tobacco abuse Hypokalemia secondary to diuretic Rx Medical telemetry Neurochecks MRI/MRA of the brain Plavix for possible ASA failure until recurrent CVA ruled out Permissive hypertension until new CVA ruled out Neurology consult RE recurrent left-sided weakness Replace potassium, hold home diuretic for now, resume acetazolamide once patient euvolemic ISS BG goal 1 40-1 80, may need basal insulin to attain goal Nicotine patch PRN DVT prophylaxis Coumadin INR goal between 2 and 3 Full code History of Present Illness Chief Complaint: Left-sided numbness, weakness Primary Care Provider: Christ Dunn DO History obtained from patient, family, and records. Medical history significant for CVA, hypercoagulable state (hx PE/DVT, MTHFR mutation as per records) on Coumadin, hypertension, hyperlipidemia, GERD, pseudotumor cerebri as per records, FÉLIX, ongoing tobacco abuse. Recent confinement 3 weeks ago for left-sided weakness attributed to acute/subacute infarct right medial temporal lobe on MRI. Aspirin added to patient's Coumadin. 2 days history of intermittent left sided weakness and numbness similar to episode from 3 weeks ago. Some head pressure symptoms. Patient compliant with home medications. Denies unusual stress. No chest pain, no S OB. Poor appetite. 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 Allergies Allergy/AdvReac Type Severity Reaction Status Date / Time moxifloxacin Allergy Intermediate CHEST PAIN Verified 12/25/18 21:28 RAPID HEART BEAT HIGH BP RASH Penicillins Allergy Intermediate HIVES Verified 12/25/18 21:28 Sulfa (Sulfonamide Allergy Intermediate HIVES Verified 12/25/18 21:28 Antibiotics) doxycycline AdvReac Intermediate Pseudo Unverified 12/25/18 21:28 tumor cerebri neomycin AdvReac Unknown ITCHY Verified 12/25/18 21:28 prednisone AdvReac Unknown TACHYCARDIA Verified 12/25/18 21:28 DECONGESTANTS AdvReac Unknown TACHYCARDIA Uncoded 12/25/18 21:28 Home Medications Home Medications Medication Instructions Recorded Confirmed Type Januvia 100 mg PO DAILY 12/10/18 12/25/18 History acetazolamide 500 mg PO DAILY 12/10/18 12/25/18 History atenolol 50 mg PO BID 12/10/18 12/25/18 History cyanocobalamin (vitamin B-12) 1,000 mcg PO DAILY 12/10/18 12/25/18 History folic acid 1 mg PO DAILY 12/10/18 12/25/18 History furosemide 40 mg PO BID 12/10/18 12/25/18 History nystatin 1 applic TOPICAL BID PRN 12/10/18 12/25/18 History omeprazole 40 mg PO QAM 12/10/18 12/25/18 History ranitidine HCl 300 mg PO HS 12/10/18 12/25/18 History warfarin 2.5 mg PO .ONCE WEEKLY 12/10/18 12/25/18 History warfarin 5 mg PO 6XWK 12/10/18 12/25/18 History aspirin [Ecotrin Low Strength] 81 mg PO QAM 30 Days #30 tab 12/12/18 12/25/18 Rx atorvastatin 40 mg PO QAM 40 Days #40 tab 12/12/18 12/25/18 Rx amlodipine 10 mg PO DAILY 12/25/18 12/25/18 History rosuvastatin 20 mg PO DAILY 12/25/18 12/25/18 History Past Med/Surg History Medical History Sleep apnea (Chronic) Tobacco use (Chronic) Pulmonary hypertension (Chronic) MTHFR gene mutation (Chronic) Pseudotumor cerebri (Chronic) History of pulmonary embolism (Chronic) Dyslipidemia (Chronic) Diabetes mellitus, type II (Chronic) Hypertension (Chronic) Surgical History History of carpal tunnel surgery (Chronic) Family History Other Diabetes Hypertension Social History Preferred Language: Liberian Communication Ability: Effective Chronograph Operator Required: No Beliefs That Will Affect Care: None marital status: Single Current Living Situation: Alone Other Information That Helps Us Care for You: No Feels Safe at Home: Yes Safety Concerns: Feels Safe At This Time Smoking Status: Current every day smoker Tobacco Type: cigarettes Cigarettes Per Day: 30 Do You Dip or Chew Tobacco: No Second Hand Exposure: No Tobacco Cessation Education Requested by Patient: No Hx Alcohol Use: No Hx Substance Use: No Review of Systems Review of Systems: As per HPI, all 10 systems reviewed, all other ROS negative Physical Exam Physical Exam: GENERAL: Comfortable, obese, no respiratory distress SKIN: Normal color, warm HEENT: [place] palpebral conjunctivae, no ptosis, dry buccal mucosa NECK : Supple, short neck, no tenderness CHEST : Decreased breath sounds , no tenderness HEART : RRR, no obvious murmurs ABDOMEN: Some distention, nontender EXTREMITIES : Minimal LE swelling, no LE tenderness, no other conspicuous deformities noted NEUROLOGIC : Coherent, no facial asymmetry, MMT LUE slightly less than RUE, no other gross focality Results & Data Vital Signs (Past 12 Hours) Vital Signs Temp Pulse Pulse Resp BP BP Pulse Ox 12/26/18 00:53 71 16 161/89 H 95 12/25/18 23:36 70 16 141/65 H 95 12/25/18 21:53 79 18 152/73 H 98 12/25/18 20:13 36.9 C 77 18 145/74 H 96 Laboratory Results Laboratory Results WBC 7.01 K/uL (4.8-10.8) 12/25/18 20:44 RBC 5.77 M/uL (4.2-5.4) H 12/25/18 20:44 Hgb 18.0 g/dL (12.0-16.0) H 12/25/18 20:44 Hct 50.2 % (37-47) H 12/25/18 20:44 MCV 87.0 fL (80-100) 12/25/18 20:44 MCH 31.2 pg (25-34) 12/25/18 20:44 MCHC 35.9 g/dL (32-36) 12/25/18 20:44 RDW Std Deviation 42.4 fL (36.4-46.3) 12/25/18 20:44 RDW Coeff of Teodoro 13.5 % (11.5-14.5) 12/25/18 20:44 Plt Count 143 K/uL (130-400) 12/25/18 20:44 MPV 12.4 fL (7.4-10.4) H 12/25/18 20:44 Immature Gran % (Auto) 0.3 % 12/25/18 20:44 Neut % (Auto) 69.8 % 12/25/18 20:44 Lymph % (Auto) 23.1 % 12/25/18 20:44 [place] % (Auto) 5.8 % 12/25/18 20:44 Eos % (Auto) 0.9 % 12/25/18 20:44 Baso % (Auto) 0.1 % 12/25/18 20:44 Immature Gran # (Auto) 0.02 K/uL (0.00-0.02) 12/25/18 20:44 Neut # (Auto) 4.89 K/uL (1.4-6.5) 12/25/18 20:44 Lymph # (Auto) 1.62 K/uL (1.2-3.4) 12/25/18 20:44 [place] # (Auto) 0.41 K/uL (0.11-0.59) 12/25/18 20:44 Eos # (Auto) 0.06 K/uL (0-0.5) 12/25/18 20:44 Baso # (Auto) 0.01 K/uL (0-0.2) 12/25/18 20:44 PT 27.1 Seconds (9.0-12.0) H 12/25/18 20:44 INR 2.8 (0.9-1.1) H 12/25/18 20:44 APTT 40.2 Seconds (21.0-31.0) H 12/25/18 20:44 PTT Ratio 1.5 12/25/18 20:44 Sodium 141 mmol/L (136-145) 12/25/18 20:44 Potassium 3.2 mmol/L (3.5-5.1) L 12/25/18 20:44 Chloride 108 mmol/L (98-107) H 12/25/18 20:44 Carbon Dioxide 27 mmol/L (21-32) 12/25/18 20:44 Anion Gap 7.0 (3-11) 12/25/18 20:44 BUN 8 mg/dl (7-18) 12/25/18 20:44 Creatinine 0.83 mg/dl (0.6-1.2) 12/25/18 20:44 Est Cr Clr Drug Dosing 94.5 ml/min 12/25/18 20:44 Est GFR ( Amer) 90.7 12/25/18 20:44 Est GFR (Non-Af Amer) 78.3 12/25/18 20:44 BUN/Creatinine Ratio 10.0 (10-20) 12/25/18 20:44 Glucose 194 mg/dl (70-99) H 12/25/18 20:44 POC Glucose 188 (70-99) H 12/25/18 20:49 Calcium 9.1 mg/dl (8.5-10.1) 12/25/18 20:44 Magnesium 2.0 mg/dl (1.8-2.4) 12/25/18 20:44 Total Bilirubin 1.1 mg/dl (0.2-1) H 12/25/18 20:44 AST 21 U/L (15-37) 12/25/18 20:44 ALT 23 U/L (12-78) 12/25/18 20:44 Alkaline Phosphatase 87 U/L (45-117) 12/25/18 20:44 Troponin I < 0.015 ng/ml (0-0.045) 12/25/18 20:44 Total Protein 7.5 gm/dl (6.4-8.2) 12/25/18 20:44 Albumin 3.7 gm/dl (3.4-5.0) 12/25/18 20:44 Globulin 3.8 gm/dl (2.5-4.0) 12/25/18 20:44 Albumin/Globulin Ratio 1.0 (0.9-2) 12/25/18 20:[address] head: No acute intracranial abnormality EKG as per my interpretation : rate 75, NSR, incomplete right bundle branch block, no ischemia, borderline LAE
[2018-12-26] MEDS ORDERED: CLOPIDOGREL BISULFATE 75 MG TAB PO STA (01:01)
[2018-12-26 01:39] LABS: Appearance Urine Clear (Clear); Bilirubin Urine Negative (Negative); Blood Urine Negative (Negative); Color Urine Yellow; Glucose Urine UA Negative (Negative); Ketones Urine Negative (Negative); Leukocyte Esterase Urine Negative (Negative); Nitrite Urine Negative (Negative); Protein Urine Negative (Negative); Specific Gravity Urine 1.011 (1.000-1.030); Urobilinogen Urine Negative (Negative); pH Urine 6.5 (4.5-7.5)
[2018-12-26] MEDS ORDERED: DEXTROSE 50% 50 ML SYRINGE IV PRN (02:15)
[2018-12-26] MEDS ORDERED: LORazepam 0.25 MG/0.5 ML VIAL IV PRN (02:15)
[2018-12-26] MEDS ORDERED: ACETAMINOPHEN 325 MG TAB PO PRN (02:15)
[2018-12-26] MEDS ORDERED: PROMETHAZINE HCL 12.5 MG in SODIUM CHLORIDE 0.9% 50 ML IV PRN (02:15)
[2018-12-26] MEDS ORDERED: LACTATED RINGER'S 1,000 ML IV ONE (02:15)
[2018-12-26] MEDS ORDERED: TRAMADOL HCL 50 MG TABLET PO PRN (02:15)
[2018-12-26] MEDS ORDERED: PHARMACIST DISCHARGE MED REC CONSULT PRN (02:15)
[2018-12-26] MEDS ORDERED: NITROGLYCERIN SL 0.4 MG/TAB TAB SL PRN (02:15)
[2018-12-26] MEDS ORDERED: CARBOHYDRATES FOR HYPOGLYCEMIA PO PRN (02:15)
[2018-12-26] MEDS ORDERED: GLUCAGON FOR INJ 1 MG VIAL SQ PRN (02:15)
[2018-12-26] MEDS ORDERED: GLUCOSE 10 TABS/TUBE PO PRN (02:15)
[2018-12-26] MEDS ORDERED: GLUCOSE 40% GEL 15 GM TUBE PO PRN (02:15)
[2018-12-26] MEDS: INSULIN ASPART 100 UNITS/ML 3 ML PEN SC SCH ×4 (03:06→18:05)
[2018-12-26 07:36] LABS: Basophils # (auto) 0.01 K/uL (0-0.2); Basophils % (auto) 0.1 %; Eosinophils # (auto) 0.08 K/uL (0-0.5); Eosinophils % (auto) 1.1 %; Hematocrit (blood only) 47.3 % (37-47); Hemoglobin 16.7 g/dL (12.0-16.0); Immature Granulocytes # (auto) 0.02 K/uL (0.00-0.02); Immature Granulocytes % (auto) 0.3 %; Lymphocytes # (auto) 2.42 K/uL (1.2-3.4); Lymphocytes % (auto) 34.7 %; Mean Corpuscular Hgb Conc 35.3 g/dL (32-36); Mean Corpuscular Volume 89.2 fL (80-100); Mean Platelet Volume 11.1 fL (7.4-10.4); Monocytes # (auto) 0.45 K/uL (0.11-0.59); Monocytes % (auto) 6.4 %; Neutrophils % (auto) 57.4 %; Platelet Count 110 K/uL (130-400); RDW Coefficient of Variation 13.4 % (11.5-14.5); RDW Standard Deviation 43.9 fL (36.4-46.3); White Blood Count 6.98 K/uL (4.8-10.8)
[2018-12-26 07:43] LABS: Estimated Average Glucose 151 mg/dl; Hemoglobin A1C 6.9 % (4.5-5.6)
[2018-12-26 07:46] LABS: INR 2.9 (0.9-1.1); Prothrombin Time 27.9 Seconds (9.0-12.0)
[2018-12-26 08:07] LABS: BUN Creatinine Ratio 13.8 (10-20); Calcium 8.9 mg/dl (8.5-10.1); Creatinine Clr Calc Pharmacy 124.8 ml/min; Est GFR (African American) 115.4; Est GFR (Non-African American) 99.6; Potassium 3.2 mmol/L (3.5-5.1)
[2018-12-26] MEDS ORDERED: FOLIC ACID 1 MG TAB PO SCH (09:00)
[2018-12-26] MEDS ORDERED: ATORVASTATIN 40 MG TAB PO SCH (09:00)
[2018-12-26] MEDS ORDERED: PANTOprazole 40 MG TAB PO SCH (09:00)
--- NOTE | 2018-12-26 11:19 | Hospitalist Progress Note ---
Date of Service December 26, 2018 Assessment & Plan (1) Left-sided weakness: Presented with left-sided weakness,-symptom has resolved Recent history of CVA on 11/2018 Was added aspirin hx hypercoagulable state (hx PE/DVT, MTHFR mutation as per records) on Coumadin, INR therapeutic Plavix was added, Ordered for MRI MRA of brain,-anesthesiology consult for sedation during MRI as patient is severely claustrophobic Neurology consult requested ongoing tobacco abuse Hypokalemia secondary to diuretic Rx Medical telemetry Neurochecks MRI/MRA of the brain Plavix for possible ASA failure until recurrent CVA ruled out Permissive hypertension until new CVA ruled out Neurology consult RE recurrent left-sided weakness Replace potassium, hold home diuretic for now, resume acetazolamide once patient euvolemic ISS BG goal 1 40-1 80, may need basal insulin to attain goal Nicotine patch PRN DVT prophylaxis Coumadin INR goal between 2 and 3 Full code (2) CVA (cerebrovascular accident): (3) Anticoagulated on Coumadin: (4) Hypokalemia: Secondary to diuretics use, given 40 M EQ of p.o. potassium Repeat BMP in a.m. (5) MTHFR gene mutation: History of DVT, PE, on chronic anticoagulation on Coumadin INR 2.9 Had recent stroke while on therapeutic INR Per patient: Recent anticoagulation clinic visit, patient's goal INR was to be kept higher level between 2.5-3 Coumadin continued with current dose (6) History of pulmonary embolism: On Coumadin (7) Diabetes mellitus, type II: DM2 on oral medications, well-controlled as of recent outpatient hemoglobin A1c of 5.23 September 2018 (8) Dyslipidemia: On statin 40 mg p.o. daily, dose increased for high intensity statin therapy given the recent stroke 2 weeks ago Goal LDL less than 70 (9) Hypertension: Continue outpatient BP meds (10) Stroke-like symptoms: With left-sided weakness, strokelike symptoms High risk for recurrent CVA,-hyper coagulable status, Needs repeat MRI MRA of brain Patient continued with Coumadin, aspirin Added Plavix 75 mg p.o. daily Neurology consulted (11) Tobacco use: Patient is counseled repeatedly to quit smoking High risk for recurrent stroke Patient willing to quit (12) Pseudotumor cerebri: pseudotumor cerebri on acetazolamide Rx CODE STATUS: Full code DVT prophylaxis: On Coumadin Disposition: PT OT evaluation requested Expected to be discharged home when medically stable Subjective Left-sided weakness has improved, Patient denies of any paresthesia, tingling or numbness No headache or blurred vision Speech fluent, no dysphasia MRI of brain could not be done in our ER as patient is severely claustrophobic usually requires anesthesia intervention for sedation Anesthesia consulted, plan of care discussed with on-call anesthesiologist Dr. De Los Santos Patient is scheduled for MRI MRA of brain at 1 PM today Will be kept n.p.o. until then for sedation, IV Versed to be administered by anesthesiologist prior to MRI Physical Exam Constitutional: WD/WN, vitals as above + obese; no acute distress Eyes: PERRL, conjunctivae normal, anicteric sclerae ENMT: external ear and nose normal, oropharynx normal Neck: trachea midline, no thyromegaly Respiratory: normal respiratory effort, lungs clear to auscultation Cardiovascular: RRR, no murmur, no edema Gastrointestinal (Abdomen): normal bowel sounds, soft, nontender, no hepatosplenomegaly Musculoskeletal: no cyanosis or clubbing, extremities motor strength 5/5 Skin: no rashes, warm and dry Neurologic: PERRL, EOMI, accommodation nl, no face palsy, no dysarthria Normal strength bilaterally, no focal neurological deficit noted Psychiatric: A+Ox3, euthymic affect Results & Data Vital Signs (Past 12 Hours) Vital Signs Temp Pulse Pulse Resp BP BP Pulse Ox 12/26/18 07:15 36.5 C 67 18 164/77 H 92 12/26/18 01:56 36.7 C 66 18 153/87 H 95 12/26/18 01:40 75 18 168/89 H 95 12/26/18 00:53 71 16 161/89 H 95 12/25/18 23:36 70 16 141/65 H 95 (1) CVA (cerebrovascular accident) CVA mechanism: unspecified Qualified Code(s): I63.9 - Cerebral infarction, unspecified (2) Diabetes mellitus, type II Diabetes mellitus assistant terminal manager insulin use: without assistant terminal manager use Diabetes mellitus complication status: with other specified complication Qualified Code(s): E11.69 - Type 2 diabetes mellitus with other specified complication
--- NOTE | 2018-12-26 12:08 | Anesthesiology Consultation ---
Date of Service December 26, 2018 Assessment & Plan (1) Encounter for pre-operative examination: Chart Review Chart Review: Acceptable Risk for Surgery History Height/Weight Height: 5 ft 4 in Weight: 118.5 kg Allergies Allergy/AdvReac Type Severity Reaction Status Date / Time moxifloxacin Allergy Intermediate CHEST PAIN Verified 12/25/18 21:28 RAPID HEART BEAT HIGH BP RASH Penicillins Allergy Intermediate HIVES Verified 12/25/18 21:28 Sulfa (Sulfonamide Allergy Intermediate HIVES Verified 12/25/18 21:28 Antibiotics) doxycycline AdvReac Intermediate Pseudo Unverified 12/25/18 21:28 tumor cerebri neomycin AdvReac Unknown ITCHY Verified 12/25/18 21:28 prednisone AdvReac Unknown TACHYCARDIA Verified 12/25/18 21:28 DECONGESTANTS AdvReac Unknown TACHYCARDIA Uncoded 12/25/18 21:28 Medications Home Medications Medication Instructions Recorded Confirmed Last Taken Januvia 100 mg PO DAILY 12/10/18 12/25/18 12/25/18 acetazolamide 500 mg PO DAILY 12/10/18 12/25/18 12/25/18 atenolol 50 mg PO BID 12/10/18 12/25/18 12/25/18 cyanocobalamin (vitamin B-12) 1,000 mcg PO DAILY 12/10/18 12/25/18 12/25/18 folic acid 1 mg PO DAILY 12/10/18 12/25/18 12/25/18 furosemide 40 mg PO BID 12/10/18 12/25/18 12/25/18 nystatin 1 applic TOPICAL BID PRN 12/10/18 12/25/18 12/25/18 omeprazole 40 mg PO QAM 12/10/18 12/25/18 12/25/18 ranitidine HCl 300 mg PO HS 12/10/18 12/25/18 12/24/18 warfarin 2.5 mg PO .ONCE WEEKLY 12/10/18 12/25/18 12/22/18 warfarin 5 mg PO 6XWK 12/10/18 12/25/18 12/25/18 aspirin [Ecotrin Low Strength] 81 mg PO QAM 30 Days #30 tab 12/12/18 12/25/18 12/25/18 atorvastatin 40 mg PO QAM 40 Days #40 tab 12/12/18 12/25/18 12/25/18 amlodipine 10 mg PO DAILY 12/25/18 12/25/18 12/25/18 rosuvastatin 20 mg PO DAILY 12/25/18 12/25/18 12/25/18 Active Medications Generic Name Dose Route Start Last Admin Trade Name Tonny PRN Reason Stop Dose Admin Insulin Aspart 0 units 12/26/18 02:15 12/26/18 03:06 Novolog Flexpen SC 01/25/19 02:14 Not Given ACHS BOGDAN Past Medical History Medical History Sleep apnea (Chronic) Tobacco use (Chronic) Pulmonary hypertension (Chronic) MTHFR gene mutation (Chronic) Pseudotumor cerebri (Chronic) History of pulmonary embolism (Chronic) Dyslipidemia (Chronic) Diabetes mellitus, type II (Chronic) Hypertension (Chronic) Right sided weakness Past Family History Family History Other Diabetes Hypertension Past Surgical History Surgical History History of carpal tunnel surgery (Chronic) Social History Smoking Status: Current every day smoker tobacco type: cigarettes Smoking cigarettes per day: 30 Do You Dip or Chew Tobacco: No Hx Alcohol Use: No Hx Substance Use: No substance use type: does not use Physical Exam Vital Signs Last Vital Signs Temp 36.5 C 12/26/18 07:15 Pulse 67 12/26/18 07:15 Resp 18 12/26/18 07:15 BP 164/77 H 12/26/18 07:15 Pulse Ox 92 12/26/18 07:15 Testing Laboratory Results 12/26/18 06:50 12/26/18 06:50 PT 27.9 Seconds (9.0-12.0) H 12/26/18 06:50 INR 2.9 (0.9-1.1) H 12/26/18 06:50 APTT 40.2 Seconds (21.0-31.0) H 12/25/18 20:44 Hemoglobin A1c 6.9 % (4.5-5.6) H 12/26/18 06:50 Urine Color Yellow 12/25/18 20:27 Urine Appearance Clear (Clear) 12/25/18 20:27 Urine pH 6.5 (4.5-7.5) 12/25/18 20:27 Ur Specific [place] 1.011 (1.000-1.030) 12/25/18 20:27 Urine Protein Negative (Negative) 12/25/18 20:27 Urine Glucose (UA) Negative (Negative) 12/25/18 20:27 Urine Ketones Negative (Negative) 12/25/18 20:27 Urine Nitrite Negative (Negative) 12/25/18 20:27 Ur Leukocyte Esterase Negative (Negative) 12/25/18 20:27 12/26/18 12/26/18 12/26/18 11:55 07:40 02:06 POC Glucose 193 H 122 H 127 H Electrocardiogram Date: 12/25/18 Findings: + NSR @ (52)
--- NOTE | 2018-12-26 12:50 | Neurology Consultation ---
Date of Consultation December 26, 2018 Assessment & Plan (1) Left-sided weakness: 1. previous stroke MRI - R temp lobe medial 5 mm stroke/ TTE EG 60-65% no ASD, CTA head/neck- Atherosclerotic plaque results in approximately 50% stenosis of the origins of the bilateral ECAs. This is unlikely to be of clinical concern. 2. optimize DM, HLD, HTN, LDL<70 3. PT/OT for discharge needs- will likely need some form of PT/OT at discharge 4. would not add plavix at this time 5. continue to monitor INR 2.0-3.0 range 6. increase aspirin dose from 81 mg to 162 mg 7. MRI brain to evaluate if this is new event or extension of previous stroke 8. smoking cessation advised follow up with Dr Singh next week as scheduled. Present on Admission?: Yes (2) CVA (cerebrovascular accident): as above Supervising Physician Co-Signing Physician Notes I have seen and discussed above patient with Dr Ashwin Michaels, neurology I saw this patient during her last admission very briefly today at that point and agreed with the plan to send her out on Coumadin plus a baby aspirin and to have her follow-up with Dr. Carson for both her pseudotumor and the apparently vascular event with transient weakness of her left arm and leg that had cleared by the time I saw her and on MRI was associated with a very small area of diffusion-weighted imaging abnormality in the right temporal lobe. Anatomically this did not make a lot of sense but the patient had cleared and I suspected that at one point she had a more extensive ischemic area that did not show up on imaging She now presents with a progressive although now arrested weakness of her left leg and left arm beginning on Saturday and stable now for at least 24 hours. MR imaging unfortunately is hampered by her claustrophobia and the need to have anesthesia performed the study or at least help during the study and she was inadvertently not kept off oral intake and the imaging cannot be done now until Saturday Exam is really pretty unremarkable she talks about some clumsiness and weakness of the left arm and leg but on objective testing I find very little. This certainly no extensor toe sign, Jennifer sign, drift or pronation sign or any hard evidence for a motor system deficit and sensory examination is essentially normal At this point my recommendations would be to double up on the aspirin to a dose of 162 mg a day combined with the Coumadin, have her assessed by physical therapy and Occupational Therapy and if she is felt to be stable from their point of view and there is no medical issues that she can be discharged and we can arrange for the MRI to be done on an outpatient basis and for follow-up with Dr. Carson who knows her and follows her for her pseudotumor anyway We relayed this information to Dr. Bahena who is her current attending and I will check back tomorrow just in case she is not discharged today with the above plan in place I have discussed this in detail with Ana Dawson PA-C and agree with her outlined plans above and the modifications we have had to make because of the imaging delay Ashwin Michaels MD History of Present Illness Reason for Consultation: L side weakness Requesting Physician: Elissa Bahena MD Attending Physician: Elissa Bahena MD History of Present Illness Kathryn is a 58 year old with PMH HTN, HLD, PE on Coumadin, h/o MTHFR mutation, DM II, pulmonary hypertension, pseudotumor cerebri, sleep apnea, tobacco use presented to ER with complaint of left arm and left leg weakness. The previous admission she had 4 days on left arm/leg weakness which lasted approximately 15 minutes and resolved then returned and again her leg felt "funny" and left arm and leg felt weak and associated lightheadedness and resolved after 30 minutes. The symptoms seem to wax and wane and then became more consistent. prior to current admission she has several days of left am and leg weakness which now has persisted. She feel like if she didn't have the walker she would fall. She needs to concentrate on the movement of her arm and leg. denies CP, SOB, abdominal pain, numbness tingling, N, V, swallowing or speech issues, vision changes.+ left sided weakness. Allergies Allergy/AdvReac Type Severity Reaction Status Date / Time moxifloxacin Allergy Intermediate CHEST PAIN Verified 12/25/18 21:28 RAPID HEART BEAT HIGH BP RASH Penicillins Allergy Intermediate HIVES Verified 12/25/18 21:28 Sulfa (Sulfonamide Allergy Intermediate HIVES Verified 12/25/18 21:28 Antibiotics) doxycycline AdvReac Intermediate Pseudo Unverified 12/25/18 21:28 tumor cerebri neomycin AdvReac Unknown ITCHY Verified 12/25/18 21:28 prednisone AdvReac Unknown TACHYCARDIA Verified 12/25/18 21:28 DECONGESTANTS AdvReac Unknown TACHYCARDIA Uncoded 12/25/18 21:28 Home Medications Home Medications Medication Instructions Recorded Confirmed Type Januvia 100 mg PO DAILY 12/10/18 12/25/18 History acetazolamide 500 mg PO DAILY 12/10/18 12/25/18 History atenolol 50 mg PO BID 12/10/18 12/25/18 History cyanocobalamin (vitamin B-12) 1,000 mcg PO DAILY 12/10/18 12/25/18 History folic acid 1 mg PO DAILY 12/10/18 12/25/18 History furosemide 40 mg PO BID 12/10/18 12/25/18 History nystatin 1 applic TOPICAL BID PRN 12/10/18 12/25/18 History omeprazole 40 mg PO QAM 12/10/18 12/25/18 History ranitidine HCl 300 mg PO HS 12/10/18 12/25/18 History warfarin 2.5 mg PO .ONCE WEEKLY 12/10/18 12/25/18 History warfarin 5 mg PO 6XWK 12/10/18 12/25/18 History aspirin [Ecotrin Low Strength] 81 mg PO QAM 30 Days #30 tab 12/12/18 12/25/18 Rx atorvastatin 40 mg PO QAM 40 Days #40 tab 12/12/18 12/25/18 Rx amlodipine 10 mg PO DAILY 12/25/18 12/25/18 History rosuvastatin 20 mg PO DAILY 12/25/18 12/25/18 History Patient History Medical History Sleep apnea (Chronic) Tobacco use (Chronic) Pulmonary hypertension (Chronic) MTHFR gene mutation (Chronic) Pseudotumor cerebri (Chronic) History of pulmonary embolism (Chronic) Dyslipidemia (Chronic) Diabetes mellitus, type II (Chronic) Hypertension (Chronic) Right sided weakness Surgical History History of carpal tunnel surgery (Chronic) Family History Other Diabetes Hypertension Social History Preferred Language: Syriac Communication Ability: Effective Manager Revenue Required: No Beliefs That Will Affect Care: None marital status: Single Current Living Situation: Alone Other Information That Helps Us Care for You: No Feels Safe at Home: Yes Safety Concerns: Feels Safe At This Time Smoking Status: Current every day smoker Tobacco Type: cigarettes Cigarettes Per Day: 30 Do You Dip or Chew Tobacco: No Second Hand Exposure: No Tobacco Cessation Education Requested by Patient: No Hx Alcohol Use: No Hx Substance Use: No Physical Exam Physical Exam: Physical Exam: Constitutional: appearance over nourished, healthy Ears, Nose, Mouth and Throat: mucous membranes moist, no injection and skin normal, eyes normal Cardiovascular: normal S-1 and S-2 and regular rate and rhythm Respiratory: course breath sounds Musculoskeletal: no peripheral edema and good distal pulses Skin: no stigmata of neurocutaneous disease noted and normal and intact Eyes: extraocular muscles intact (EOMI) and pupils equal, round and reactive to light (PERRL) NEUROLOGIC EXAMINATION: Mental status: Alert and interactive Oriented to full date and location Oriented to person Speech fluent with no evidence of aphasia Cranial Nerves smile eye brow raise intact Reflexes: Deep tendon reflexes were symmetrical and graded 2/5. Sensory: no sensory deficits to light or cool touch Coordination: finger to nose without bi pass Gait/Stance: Posture normal sitting in bed Motor: slight pronator drift on left Strength: biceps triceps hand processing mgr right 5/5, left 4/5, hip flex patellar plantar flex ext right 5/5 left 4/5 Results & Data Vital Signs (Past 12 Hours) Vital Signs Temp Pulse Pulse Resp BP BP Pulse Ox 12/26/18 07:15 36.5 C 67 18 164/77 H 92 12/26/18 01:56 36.7 C 66 18 153/87 H 95 12/26/18 01:40 75 18 168/89 H 95 12/26/18 00:53 71 16 161/89 H 95 Laboratory Results Abnormal lab results 12/25/18 12/25/18 12/25/18 Range/Units 20:44 20:44 20:44 RBC 5.77 H (4.2-5.4) M/uL Hgb 18.0 H (12.0-16.0) g/dL Hct 50.2 H (37-47) % Plt Count (130-400) K/uL MPV 12.4 H (7.4-10.4) fL PT 27.1 H (9.0-12.0) Seconds INR 2.8 H (0.9-1.1) APTT 40.2 H (21.0-31.0) Seconds Potassium 3.2 L (3.5-5.1) mmol/L Chloride 108 H (98-107) mmol/L Glucose 194 H (70-99) mg/dl POC Glucose (70-99) Hemoglobin A1c (4.5-5.6) % Total Bilirubin 1.1 H (0.2-1) mg/dl Triglycerides (0-150) mg/dl 12/25/18 12/26/18 12/26/18 Range/Units 20:49 02:06 06:50 RBC (4.2-5.4) M/uL Hgb (12.0-16.0) g/dL Hct (37-47) % Plt Count (130-400) K/uL MPV (7.4-10.4) fL PT (9.0-12.0) Seconds INR (0.9-1.1) APTT (21.0-31.0) Seconds Potassium (3.5-5.1) mmol/L Chloride (98-107) mmol/L Glucose (70-99) mg/dl POC Glucose 188 H 127 H (70-99) Hemoglobin A1c 6.9 H (4.5-5.6) % Total Bilirubin (0.2-1) mg/dl Triglycerides (0-150) mg/dl 12/26/18 12/26/18 12/26/18 Range/Units 06:50 06:50 06:50 RBC (4.2-5.4) M/uL Hgb 16.7 H (12.0-16.0) g/dL Hct 47.3 H (37-47) % Plt Count 110 L (130-400) K/uL MPV 11.1 H (7.4-10.4) fL PT 27.9 H (9.0-12.0) Seconds INR 2.9 H (0.9-1.1) APTT (21.0-31.0) Seconds Potassium 3.2 L (3.5-5.1) mmol/L Chloride 110 H (98-107) mmol/L Glucose 128 H (70-99) mg/dl POC Glucose (70-99) Hemoglobin A1c (4.5-5.6) % Total Bilirubin (0.2-1) mg/dl Triglycerides 181 H (0-150) mg/dl 12/26/18 12/26/18 Range/Units 07:40 11:55 RBC (4.2-5.4) M/uL Hgb (12.0-16.0) g/dL Hct (37-47) % Plt Count (130-400) K/uL MPV (7.4-10.4) fL PT (9.0-12.0) Seconds INR (0.9-1.1) APTT (21.0-31.0) Seconds Potassium (3.5-5.1) mmol/L Chloride (98-107) mmol/L Glucose (70-99) mg/dl POC Glucose 122 H 193 H (70-99) Hemoglobin A1c (4.5-5.6) % Total Bilirubin (0.2-1) mg/dl Triglycerides (0-150) mg/dl Diagnostic Findings CT head-No acute intracranial abnormality. (1) CVA (cerebrovascular accident) CVA mechanism: unspecified Qualified Code(s): I63.9 - Cerebral infarction, unspecified
[2018-12-26] MEDS ORDERED: fentaNYL citrate 100 MCG/2 ML VIAL ONE (12:52)
[2018-12-26] MEDS ORDERED: MIDAZOLAM HCL 1 MG/ML 2ML VIAL ONE ×2 (12:52)
[2018-12-26] MEDS ORDERED: LORazepam 1 MG/2 ML VIAL IV ONE (13:31)
[2018-12-26] MEDS ORDERED: STROKE PATIENT DISCHARGE STA (18:04)
--- NOTE | 2018-12-26 18:08 | Discharge Summary ---
Date of Service December 26, 2018 Admission HPI Per Admitting Provider History obtained from patient, family, and records. Medical history significant for CVA, hypercoagulable state (hx PE/DVT, MTHFR mutation as per records) on Coumadin, hypertension, hyperlipidemia, GERD, pseudotumor cerebri as per records, FÉLIX, ongoing tobacco abuse. Recent confinement 3 weeks ago for left-sided weakness attributed to acute/subacute infarct right medial temporal lobe on MRI. Aspirin added to patient's Coumadin. 2 days history of intermittent left sided weakness and numbness similar to episode from 3 weeks ago. Some head pressure symptoms. Patient compliant with home medications. Denies unusual stress. No chest pain, no S OB. Poor appetite. 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 Principal Diagnosis Left-sided weakness/TIA/history of present stroke Discharge Data Allergies Allergy/AdvReac Type Severity Reaction Status Date / Time moxifloxacin Allergy Intermediate CHEST PAIN Verified 12/25/18 21:28 RAPID HEART BEAT HIGH BP RASH Penicillins Allergy Intermediate HIVES Verified 12/25/18 21:28 Sulfa (Sulfonamide Allergy Intermediate HIVES Verified 12/25/18 21:28 Antibiotics) doxycycline AdvReac Intermediate Pseudo Unverified 12/25/18 21:28 tumor cerebri neomycin AdvReac Unknown ITCHY Verified 12/25/18 21:28 prednisone AdvReac Unknown TACHYCARDIA Verified 12/25/18 21:28 DECONGESTANTS AdvReac Unknown TACHYCARDIA Uncoded 12/25/18 21:28 Consultations 12/25/18 23:02 ED Decision to Admit Stat 12/26/18 02:15 Consult Case Management - Discharge Planning Routine Consult Neurology Routine 12/26/18 10:55 Consult Anesthesiology Routine Ordered Studies 12/25/18 20:34 CT head/brain wo con Stat Hospital Course (1) Left-sided weakness: Presented with left-sided weakness,-symptom has resolved Recent history of CVA on 11/2018 Was added aspirin hx hypercoagulable state (hx PE/DVT, MTHFR mutation as per records) on Coumadin, INR therapeutic Ordered for MRI MRA of brain,-anesthesiology consult for sedation during MRI as patient is severely claustrophobic Unable to have anesthesia today as patient already had food earlier Next scheduled for MRI scan on Saturday Neurology consult requested-appreciate input Recommend increased aspirin to 162 tablet daily She can be discharged home, neurology will arrange outpatient MRI MRA of brain ongoing tobacco abuse Hypokalemia secondary to diuretic Rx Medical telemetry Neurochecks MRI/MRA of the brain Plavix for possible ASA failure until recurrent CVA ruled out Permissive hypertension until new CVA ruled out Neurology consult RE recurrent left-sided weakness Replace potassium, hold home diuretic for now, resume acetazolamide once patient euvolemic ISS BG goal 1 40-1 80, may need basal insulin to attain goal Nicotine patch PRN DVT prophylaxis Coumadin INR goal between 2 and 3 Full code (2) CVA (cerebrovascular accident): (3) Anticoagulated on Coumadin: (4) Hypokalemia: Secondary to diuretics use, given 40 M EQ of p.o. potassium (5) MTHFR gene mutation: History of DVT, PE, on chronic anticoagulation on Coumadin INR 2.9 Had recent stroke while on therapeutic INR Per patient: Recent anticoagulation clinic visit, patient's goal INR was to be kept higher level between 2.5-3 Coumadin continued with current dose (6) History of pulmonary embolism: On Coumadin (7) Diabetes mellitus, type II: DM2 on oral medications, well-controlled as of recent outpatient hemoglobin A1c of 5.23 September 2018 (8) Dyslipidemia: On statin 40 mg p.o. daily, dose increased for high intensity statin therapy given the recent stroke 2 weeks ago Goal LDL less than 70 (9) Hypertension: Continue outpatient BP meds (10) Stroke-like symptoms: With left-sided weakness, strokelike symptoms-symptom has improved High risk for recurrent CVA,-hyper coagulable status, repeat MRI MRA of brain-could not be done today- required anesthesiology/sedation for severe claustrophobia/had food earlier\ Next imaging can be scheduled on Saturday Patient continued with Coumadin, aspirin dose increased to 162 mg daily Neurology consulted-appreciate input, stable to be discharged home with outpatient MRI MRA brain scheduled (11) Tobacco use: Patient is counseled repeatedly to quit smoking High risk for recurrent stroke Patient willing to quit (12) Pseudotumor cerebri: pseudotumor cerebri on acetazolamide Rx CODE STATUS: Full code DVT prophylaxis: On Coumadin Disposition: PT OT evaluation requested-appreciate input Patient can return home, recommend outpatient physical therapy-prescription given To be discharged home today Total Time Total Time Spent Total Time Spent (In Minutes): Approximately 40 minutes Total Time Includes: Examination of the Patient, Discharge Planning, Medication Reconciliation and Communication With Other Providers Discharge Plan Discharge Items Patient Disposition: Home - Self-Care Reason For Visit: STROKE Discharge Diagnosis: Left sided weakness, TIA, recent history of stroke Discharge Goals: Decrease discomfort Activity: Resume your previous activity Non-emergency contact: Primary Care Provider Call non-emergency contact if: you have any medication questions Follow-up/Referrals: Christ Dunn, [Primary Care Provider] - Diet: Heart Healthy Addtl Provider Instructions: Continue PHYSICAL THERAPY /OCCUPATIONAL THERAPY for left-sided weakness Hospital follow-up with Dr. Dunn in a week, office will call with appointment Neurology follow-up in 2 to 3 weeks MEDICATION CHANGE: Aspirin dose increased to 162 mg (2 tablets) daily-take with full stomach Neurology office will schedule outpatient MRI/MRA of the brain Do not drive until hospital follow-up with family physician Risk Factors for Stroke: You can reduce your chances of stroke by working with your medical provider to adopt a healthy lifestyle. Some specific ways to lower your chance of stroke are: * If you are a smoker, now is the time to stop smoking cigarettes * If you are diabetic, improve the control of your blood sugars * Avoid excessive amounts of alcohol * Control high blood pressure * Lose weight if you are overweight * Be sure to lead an active lifestyle * Eat a healthy diet low in salt, cholesterol and fat You should know about other risk factors for stroke that you are unable to control. These include: * Age 55 years or older * Male gender * Certain racial groups: , or / * Family History of Stroke, Mini stroke or Heart Attack * Sickle Cell Disease Follow Up: It is important for you to keep your follow up appointments with your medical provider. Who to Call and When: Medical Emergencies: Call 911 immediately if you experience any of the following warning signs and symptoms of Stroke: * Sudden numbness or weakness of the face, arm or leg, especially on one side of the body * Sudden confusion, trouble speaking or understanding * Sudden trouble seeing in one or both eyes * Sudden trouble walking, dizziness, loss of balance or coordination * Sudden severe headache with no cause Do not delay calling 911 if you experience any warning signs or symptoms of a stroke. Delay in seeking medical attention may affect what treatments can be given to you. . Prescriptions: New aspirin 81 mg tablet,delayed release (DR/EC) 162 mg PO DAILY Qty: 60 RF: 4 Continued warfarin 5 mg tablet 5 mg PO 6XWK RF: 0 warfarin 5 mg tablet 2.5 mg PO .ONCE WEEKLY RF: 0 Januvia 100 mg tablet 100 mg PO DAILY RF: 0 ranitidine HCl 300 mg tablet 300 mg PO HS RF: 0 omeprazole 40 mg capsule,delayed release(DR/EC) 40 mg PO QAM RF: 0 cyanocobalamin (vitamin B-12) 1,000 mcg Tablet 1,000 mcg PO DAILY RF: 0 furosemide 40 mg tablet 40 mg PO BID RF: 0 atenolol 100 mg tablet 50 mg PO BID RF: 0 acetazolamide 500 mg capsule, extended release 500 mg PO DAILY RF: 0 folic acid 1 mg Tablet 1 mg PO DAILY RF: 0 nystatin 100,000 unit/gram cream 1 applic topical BID PRN (Reason: .GROIN RASH) RF: 0 atorvastatin 40 mg Tablet 40 mg PO QAM 40 Days Qty: 40 RF: 3 amlodipine 5 mg tablet 10 mg PO DAILY RF: 0 rosuvastatin 20 mg tablet 20 mg PO DAILY RF: 0 Discontinued aspirin [Ecotrin Low Strength] 81 mg Tablet,Delayed Release (Dr/Ec) 81 mg PO QAM 30 Days Qty: 30 RF: 3 Stand-Alone Forms: [facility]charge Orders: Discharge Order (Routine); Ordered 12/26/18 Ordered By: Elissa Bahena Admission Data Admit Date/Time: 12/26/18 01:03 Attending Provider: Elissa Bahena Admit Provider: Shamar Cannon Primary Care Provider: Christ Dunn Other Providers: Shamar Cannon ; Ana Singh ; Steven De Los Santos Service: Telemetry Medical
[2018-12-27] MEDS ORDERED: ASPIRIN 81 MG ECTAB PO SCH (09:00)
[2018-12-27] MEDS ORDERED: CLOPIDOGREL BISULFATE 75 MG TAB PO SCH (09:00)
--- NOTE | 2019-01-14 14:00 | Coding Query ---
CODING QUERY To promote full compliance with coding requirements relating to patient care, provider participation is requested in all cases of surgical coder uncertainty. Please assist us with the question(s) below: Coding Question(s): Please clarify if CVA was ruled out. Physician's Response(s): pt had acute CVA ( acute /subacute infract noted in rt post int capsule ) leading to left sided weakness Elissa Bahena Thank you Joie Mayo Principal Diagnosis: "that condition established after study, to be chiefly responsible for occasioning the admission of the patient to the hospital for care." Co-Existing Principal Diagnosis: "when two or more diagnoses equally meet the criteria for principal diagnosis as determined by the circumstances of admission, diagnostic work up, and/or therapy provided, and the Alphabetic Index, Tabular List, or another coding guideline does not provide sequencing direction, any one of the diagnoses may be sequenced first." "When the physician has documented what appears to be a current diagnosis in the body of the record, but has not included the diagnosis in the final diagnostic statement, the physician should be asked whether the diagnosis should be added." ([facility] 2 QTR90. p3-4) ALIYA
== END 2018-12-26 19:24 | disposition home or self-care (01) | DRG 65 ==
LOC: ED 20:12 → SUATTDRO 12-26 01:03 → 2W 12-26 01:03

== ENCOUNTER 2018-12-28 05:05 | Inpatient (IN) ==
--- NOTE | 2018-12-28 05:33 | Emergency Department Note ---
History of Present Illness General Chief complaint: Fall Stated complaint: FALL History of Present Illness Maximum Pain Intensity: 0 This 58-year-old presents to the ER complaining of left-sided weakness Location: Left side Quality: Weak Severity: Moderate Duration: Since last night Timing: Symptoms started last night Context: Symptoms have been intermittent for 2 weeks but got much worse last night Modifying factors: better with rest; worse with activity Patient states that she is been having intermittent weakness in the left arm and leg but tonight it is much worse. Patient states she is unable to ambulate because of the weakness. She continues to smoke. Patient states symptoms started last night and is now 5:30 in the morning. She comes in now as she cannot ambulate. Patient denies chest pain, dyspnea, abdominal pain, fever, chills. Home Medications Home Medications Medication Instructions Recorded Confirmed Type Januvia 100 mg PO DAILY 12/10/18 12/25/18 History acetazolamide 500 mg PO DAILY 12/10/18 12/25/18 History atenolol 50 mg PO BID 12/10/18 12/25/18 History cyanocobalamin (vitamin B-12) 1,000 mcg PO DAILY 12/10/18 12/25/18 History folic acid 1 mg PO DAILY 12/10/18 12/25/18 History furosemide 40 mg PO BID 12/10/18 12/25/18 History nystatin 1 applic TOPICAL BID PRN 12/10/18 12/25/18 History omeprazole 40 mg PO QAM 12/10/18 12/25/18 History ranitidine HCl 300 mg PO HS 12/10/18 12/25/18 History warfarin 2.5 mg PO .ONCE WEEKLY 12/10/18 12/25/18 History warfarin 5 mg PO 6XWK 12/10/18 12/25/18 History atorvastatin 40 mg PO QAM 40 Days #40 tab 12/12/18 12/25/18 Rx amlodipine 10 mg PO DAILY 12/25/18 12/25/18 History rosuvastatin 20 mg PO DAILY 12/25/18 12/25/18 History aspirin 162 mg PO DAILY #60 tab 12/26/18 Rx Allergies Allergy/AdvReac Type Severity Reaction Status Date / Time moxifloxacin Allergy Intermediate CHEST PAIN Verified 12/25/18 21:28 RAPID HEART BEAT HIGH BP RASH Penicillins Allergy Intermediate HIVES Verified 12/25/18 21:28 Sulfa (Sulfonamide Allergy Intermediate HIVES Verified 12/25/18 21:28 Antibiotics) doxycycline AdvReac Intermediate Pseudo Unverified 12/25/18 21:28 tumor cerebri neomycin AdvReac Unknown ITCHY Verified 12/25/18 21:28 prednisone AdvReac Unknown TACHYCARDIA Verified 12/25/18 21:28 DECONGESTANTS AdvReac Unknown TACHYCARDIA Uncoded 12/25/18 21:28 Past Med/Surg History Medical History Sleep apnea (Chronic) Tobacco use (Chronic) Pulmonary hypertension (Chronic) MTHFR gene mutation (Chronic) Pseudotumor cerebri (Chronic) History of pulmonary embolism (Chronic) Dyslipidemia (Chronic) Diabetes mellitus, type II (Chronic) Hypertension (Chronic) Right sided weakness Surgical History History of carpal tunnel surgery (Chronic) Family History Other Diabetes Hypertension Social History Preferred Language: Vietnamese Communication Ability: Effective Beliefs That Will Affect Care: None marital status: Single Current Living Situation: Alone Feels Safe at Home: Yes Smoking Status: Current every day smoker Tobacco Type: cigarettes Cigarettes Per Day: 30 Second Hand Exposure: No Hx Alcohol Use: No Hx Substance Use: No Review of Systems All systems reviewed & are unremarkable except as noted in HPI & below Physical Exam Vital Signs Vital Signs - 24 hr 12/28/18 05:06 Temperature 36.8 C Temperature Source Oral Sepsis Recent Fever Within 48 Hours No Sepsis New/Unexplained Change in Mental Status No Sepsis Action Taken by Nursing No Action Required Pulse Rate 68 Respiratory Rate 18 Blood Pressure 143/72 H Blood Pressure Mean 95 Pulse Oximetry 93 Oxygen Delivery Method Room Air VITALS: Vitals are noted on the nurse's note and reviewed by myself. Vital signs stable. GENERAL: White female with tobacco odor, in no acute distress, nondiaphoretic, well-developed well-nourished. SKIN: The skin was without rashes, erythema, edema, or bruising. There is no tenting of the skin. Capillary reflex less than 2 seconds. HEAD: Normocephalic atraumatic. EARS: External auditory canals clear, tympanic membranes pearly neumann without erythema or effusion bilaterally. EYES: Pupils equal round and reactive to light and accommodation. Conjunctivae without injection, sclerae without icterus. Extraocular movements intact. NOSE: Patent, turbinates without inflammation or discharge MOUTH: Mucous membranes moist. Pharynx without erythema or exudate. Uvula midline. Airway patent. Tongue does not deviate. NECK: Supple without nuchal rigidity. No lymphadenopathy. No thyromegaly. Cervical spine is nontender. No JVD. HEART: Regular rate and rhythm LUNGS: Clear to auscultation bilaterally without wheezes, rales or rhonchi. No retractions or accessory muscle use. ABDOMEN: Positive bowel sounds x 4. Normal tympanic percussion. Soft, nontender, without masses or organomegaly. Le sign negative. No guarding or rebound tenderness. No CVA tenderness MUSCULOSKELETAL: No muscle atrophy, erythema, noted. NEURO: Patient was alert and oriented to person place and time. Normal sensation to light and sharp touch. Left arm and leg weakness. Left arm drifts down. No other focal neurological deficits. cerebellar exam intact. Medical Decision Making Medical Records Attestation: I reviewed the patient's medical records. Home Medications Current Medication List: was personally reviewed by me Laboratory Data Attestation: I reviewed the patient's lab results. Result diagrams: 12/28/18 05:30 12/28/18 05:30 Lab Results 12/28/18 12/28/18 12/28/18 Range/Units 05:28 05:30 05:30 WBC 7.31 (4.8-10.8) K/uL RBC 5.40 (4.2-5.4) M/uL Hgb 16.9 H (12.0-16.0) g/dL Hct 47.9 H (37-47) % MCV 88.7 (80-100) fL MCH 31.3 (25-34) pg MCHC 35.3 (32-36) g/dL RDW Std Deviation 43.0 (36.4-46.3) fL RDW Coeff of Teodoro 13.3 (11.5-14.5) % Plt Count 116 L (130-400) K/uL MPV 11.5 H (7.4-10.4) fL Immature Gran % (Auto) 0.3 % Neut % (Auto) 68.6 % Lymph % (Auto) 22.3 % [place] % (Auto) 7.1 % Eos % (Auto) 1.4 % Baso % (Auto) 0.3 % Immature Gran # (Auto) 0.02 (0.00-0.02) K/uL Neut # (Auto) 5.02 (1.4-6.5) K/uL Lymph # (Auto) 1.63 (1.2-3.4) K/uL [place] # (Auto) 0.52 (0.11-0.59) K/uL Eos # (Auto) 0.10 (0-0.5) K/uL Baso # (Auto) 0.02 (0-0.2) K/uL PT 32.7 H (9.0-12.0) Seconds INR 3.5 H (0.9-1.1) APTT 44.3 H (21.0-31.0) Seconds PTT Ratio 1.6 Sodium (136-145) mmol/L Potassium (3.5-5.1) mmol/L Chloride (98-107) mmol/L Carbon Dioxide (21-32) mmol/L Anion Gap (3-11) BUN (7-18) mg/dl Creatinine (0.6-1.2) mg/dl Est Cr Clr Drug Dosing ml/min Est GFR ( Amer) Est GFR (Non-Af Amer) BUN/Creatinine Ratio (10-20) Glucose (70-99) mg/dl POC Glucose 152 H (70-99) Calcium (8.5-10.1) mg/dl Magnesium (1.8-2.4) mg/dl Total Bilirubin (0.2-1) mg/dl AST (15-37) U/L ALT (12-78) U/L Alkaline Phosphatase (45-117) U/L Troponin I (0-0.045) ng/ml Total Protein (6.4-8.2) gm/dl Albumin (3.4-5.0) gm/dl Globulin (2.5-4.0) gm/dl Albumin/Globulin Ratio (0.9-2) 12/28/18 Range/Units 05:30 WBC (4.8-10.8) K/uL RBC (4.2-5.4) M/uL Hgb (12.0-16.0) g/dL Hct (37-47) % MCV (80-100) fL MCH (25-34) pg MCHC (32-36) g/dL RDW Std Deviation (36.4-46.3) fL RDW Coeff of Teodoro (11.5-14.5) % Plt Count (130-400) K/uL MPV (7.4-10.4) fL Immature Gran % (Auto) % Neut % (Auto) % Lymph % (Auto) % [place] % (Auto) % Eos % (Auto) % Baso % (Auto) % Immature Gran # (Auto) (0.00-0.02) K/uL Neut # (Auto) (1.4-6.5) K/uL Lymph # (Auto) (1.2-3.4) K/uL [place] # (Auto) (0.11-0.59) K/uL Eos # (Auto) (0-0.5) K/uL Baso # (Auto) (0-0.2) K/uL PT (9.0-12.0) Seconds INR (0.9-1.1) APTT (21.0-31.0) Seconds PTT Ratio Sodium 140 (136-145) mmol/L Potassium 3.2 L (3.5-5.1) mmol/L Chloride 109 H (98-107) mmol/L Carbon Dioxide 23 (21-32) mmol/L Anion Gap 8.0 (3-11) BUN 11 (7-18) mg/dl Creatinine 0.68 (0.6-1.2) mg/dl Est Cr Clr Drug Dosing 116.6 ml/min Est GFR ( Amer) 112.5 Est GFR (Non-Af Amer) 97.1 BUN/Creatinine Ratio 16.3 (10-20) Glucose 158 H (70-99) mg/dl POC Glucose (70-99) Calcium 8.7 (8.5-10.1) mg/dl Magnesium 1.9 (1.8-2.4) mg/dl Total Bilirubin 1.3 H (0.2-1) mg/dl AST 17 (15-37) U/L ALT 21 (12-78) U/L Alkaline Phosphatase 78 (45-117) U/L Troponin I < 0.015 (0-0.045) ng/ml Total Protein 6.8 (6.4-8.2) gm/dl Albumin 3.5 (3.4-5.0) gm/dl Globulin 3.3 (2.5-4.0) gm/dl Albumin/Globulin Ratio 1.1 (0.9-2) Imaging Data Attestation: I personally reviewed and interpreted this imaging study as follows: MDM Narrative Prior records/ancillary studies reviewed and summarized above. Nursing notes reviewed. Additional history obtained from EMS. The patient's history was concerning for left-sided weakness. Differential diagnosis: Etiologies such as metabolic, infection, hypo/hyperglycemia, electrolyte abnormalities, cardiac sources, intracerebral event, toxicologic, neurologic, as well as others were entertained. Physical examination: As above. ER treatment provided: IV Lock On reassessment the patient felt better. NIH is 3 Diagnostics interpretation by me: ECG: Normal sinus, left posterior fascicular block, no acute ST-T wave changes, rate of 69. Impression left posterior fascicular block interpreted by myself I think arrhythmia is unlikely. EKG shows normal sinus rhythm with no interval abnormalities such as QT prolongation or WPW. There are no findings to suggest Brugada syndrome. Cardiac monitoring in the emergency department reveals no tachycardic or bradycardic dysrhythmia. Hypertrophic cardiomyopathy was considered but there are no clear historical elements pointing toward this. EKG is not suggestive. The QRS voltage is not extremely large and there are no suggestive Q waves. The labs revealed no leukocytosis. Hypokalemia Hyperglycemia without DKA. Normal magnesium Imaging studies: CT HEAD: Negative Radiologist: Julio Ly MD Consultation: A consultation was placed with the hospitalist, Dr Cannon. The case was discussed and diagnostics were reviewed. The patient was evaluated in the ER for further treatment. Exam and history seem consistent with left-sided weakness. Patient has worsening left-sided weakness. Symptoms been greater than 8 hours. Medicine was consulted. Patient is agreeable treatment plan of admission. By the evaluation outlined above emergent etiologies such as infection, electrolyte abnormalities, cardiac sources, intracerebral event, toxologic, abnormalities blood glucose, metabolic, as well as others were deemed relatively unlikely. The pt informed about the findings as listed above. All questions were answered and pleased with the treatment. Case reviewed with my attending The chart was completed utilizing [employer] Speech voice recognition software. Grammatical errors, random word insertions, pronoun errors, and incomplete sentences are an occassional consequence of this system due to software limi tations, ambient noise, and hardware issues. Any formal questions or concerns about the content, text, or information contained within the body of this dictation should be directly addressed to the physician title assistant for clarification. Impression & Plan Left-sided weakness Discharge Plan Visit Data Chief Complaint: Fall Stated Complaint: FALL ED Provider: Darcy Davis ED Midlevel Provider: Milagro Mary Discharge Problem: Left-sided weakness Patient Disposition: Being Evaluated by Hospitalist Condition: Fair Forms Stand Alone Forms: My [facility] Prescriptions Prescriptions: No Action warfarin 5 mg tablet 5 mg PO [id number] RF: 0 warfarin 5 mg tablet 2.5 mg PO .ONCE WEEKLY RF: 0 Januvia 100 mg tablet 100 mg PO DAILY RF: 0 ranitidine HCl 300 mg tablet 300 mg PO HS RF: 0 omeprazole 40 mg capsule,delayed release(DR/EC) 40 mg PO QAM RF: 0 cyanocobalamin (vitamin B-12) 1,000 mcg Tablet 1,000 mcg PO DAILY RF: 0 furosemide 40 mg tablet 40 mg PO BID RF: 0 atenolol 100 mg tablet 50 mg PO BID RF: 0 acetazolamide 500 mg capsule, extended release 500 mg PO DAILY RF: 0 folic acid 1 mg Tablet 1 mg PO DAILY RF: 0 nystatin 100,000 unit/gram cream 1 applic topical BID PRN (Reason: .GROIN RASH) RF: 0 atorvastatin 40 mg Tablet 40 mg PO QAM 40 Days Qty: 40 RF: 3 amlodipine 5 mg tablet 10 mg PO DAILY RF: 0 rosuvastatin 20 mg tablet 20 mg PO DAILY RF: 0 aspirin 81 mg tablet,delayed release (DR/EC) 162 mg PO DAILY Qty: 60 RF: 4 Referrals Referrals: Christ Dunn, [Primary Care Provider] -
[2018-12-28 05:40] LABS: Basophils # (auto) 0.02 K/uL (0-0.2); Basophils % (auto) 0.3 %; Eosinophils % (auto) 1.4 %; Hematocrit (blood only) 47.9 % (37-47); Hemoglobin 16.9 g/dL (12.0-16.0); Immature Granulocytes # (auto) 0.02 K/uL (0.00-0.02); Immature Granulocytes % (auto) 0.3 %; Lymphocytes # (auto) 1.63 K/uL (1.2-3.4); Lymphocytes % (auto) 22.3 %; Mean Corpuscular Hgb Conc 35.3 g/dL (32-36); Mean Corpuscular Volume 88.7 fL (80-100); Mean Platelet Volume 11.5 fL (7.4-10.4); Monocytes # (auto) 0.52 K/uL (0.11-0.59); Monocytes % (auto) 7.1 %; Neutrophils # (auto) 5.02 K/uL (1.4-6.5); Neutrophils % (auto) 68.6 %; Platelet Count 116 K/uL (130-400); RDW Coefficient of Variation 13.3 % (11.5-14.5); White Blood Count 7.31 K/uL (4.8-10.8)
[2018-12-28 05:52] LABS: INR 3.5 (0.9-1.1); Partial Thromboplastin Ratio 1.6; Partial Thromboplastin Time 44.3 Seconds (21.0-31.0); Prothrombin Time 32.7 Seconds (9.0-12.0)
[2018-12-28 05:58] LABS: Alanine Aminotransferase 21 U/L (12-78); Albumin Level 3.5 gm/dl (3.4-5.0); Aspartate Aminotransferase 17 U/L (15-37); BUN Creatinine Ratio 16.3 (10-20); Blood Urea Nitrogen 11 mg/dl (7-18); Calcium 8.7 mg/dl (8.5-10.1); Carbon Dioxide 23 mmol/L (21-32); Chloride 109 mmol/L (98-107); Creatinine Clr Calc Pharmacy 116.6 ml/min; Est GFR (African American) 112.5; Est GFR (Non-African American) 97.1; Glucose 158 mg/dl (70-99); Magnesium 1.9 mg/dl (1.8-2.4); Potassium 3.2 mmol/L (3.5-5.1); Sodium 140 mmol/L (136-145)
[2018-12-28 06:03] LABS: Albumin Globulin Ratio 1.1 (0.9-2); Alkaline Phosphatase 78 U/L (45-117); Bilirubin,Total 1.3 mg/dl (0.2-1); Globulin 3.3 gm/dl (2.5-4.0); Total Protein 6.8 gm/dl (6.4-8.2); Troponin I < 0.015 ng/ml (0-0.045)
[2018-12-28] MEDS ORDERED: POTASSIUM CHLORIDE 10 MEQ TABCR PO STA (06:03)
[2018-12-28] MEDS ORDERED: POTASSIUM CHLORIDE 20 MEQ TABCR PO STA (06:15)
[2018-12-28] MEDS ORDERED: CLOPIDOGREL BISULFATE 75 MG TAB PO STA (06:19)
[2018-12-28 06:28] LABS: Appearance Urine Clear (Clear); Bacteria Urine Automated Negative (Negative); Bilirubin Urine Negative (Negative); Blood Urine Trace (Negative); Color Urine Yellow; Epithelial Cell Urine Auto >30 /lpf (0-5); Glucose Urine UA Negative (Negative); Ketones Urine Negative (Negative); Leukocyte Esterase Urine Negative (Negative); Nitrite Urine Negative (Negative); Protein Urine Negative (Negative); RBC Urine Automated 0-4 /hpf (0-4); Specific Gravity Urine 1.014 (1.000-1.030); Urobilinogen Urine Negative (Negative); pH Urine 6.5 (4.5-7.5)
--- NOTE | 2018-12-28 06:53 | XRay Report ---
SINGLE VIEW CHEST CLINICAL HISTORY: Hypoxia. FINDINGS: An AP, portable, upright chest radiograph is compared to study dated 12/10/2018. The examina tion is degraded by portable technique and patient rotation. The heart is top normal for projection. There is prominence of the pulmonary vasculature. There is no airspace consolidation or large pleura l effusion. No pneumothorax is seen. The skeletal structures are osteopenic. The bony thorax is gross ly intact. IMPRESSION: 1. There is prominence of the pulmonary vasculature. Correlate clinically for evidence of mild conges tive failure. 2. No airspace consolidation or large pleural effusion is identified. Electronically signed by: Stanislaw Hamilton M.D. 12/28/2018 6:52 AM
--- NOTE | 2018-12-28 06:53 | History & Physical Report ---
Date of Service December 28, 2018 Assessment & Plan (1) Acute CVA (cerebrovascular accident): Recurrent CVA hypercoagulable state (hx PE/DVT, MTHFR mutation as per records) on Coumadin, INR therapeutic ? Aspirin failure Hypoxemic respiratory failure secondary to pulmonary congestion, patient asymptomatic hypertension, slightly elevated hyperlipidemia on statin Rx, pseudotumor cerebri on acetazolamide Rx FÉLIX, ongoing tobacco abuse. DM2 on oral medications, well-controlled as of recent inpatient hemoglobin A1c of 6.9 hypokalemia secondary to diuretic Rx Medical telemetry Neurochecks Plavix for possible aspirin failure Facilitate MRI/MRA of the brain under sedation during confinement. Consult Anesthesiology to facilitate procedure. Neurology consult RE recurrent CVA Lasix for pulmonary congestion Replace potassium Nicotine patch PRN DVT prophylaxis Coumadin INR goal between 2 and 3 Full code History of Present Illness Chief Complaint: Left-sided weakness Primary Care Provider: Christ Dunn DO History obtained from patient and records. Medical history significant for CVA, hypercoagulable state (hx PE/DVT, MTHFR mutation as per records) on Coumadin, hypertension, hyperlipidemia, GERD, pseudotumor cerebri on acetazolamide Rx, FÉLIX, ongoing tobacco abuse. Recent confinement 2 days ago for possible TIA. Patient presented with transient left-sided weakness. Unable to perform MRI during confinement due to patient sedation request for the procedure. Neurology recommended increasing home aspirin dose. Few hours ago, patient noted weakness of the left arm and leg, much worse Patient denies chest pain, S OB, unusual headache symptoms. Compliant with home medications. 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 Allergies Allergy/AdvReac Type Severity Reaction Status Date / Time moxifloxacin Allergy Intermediate CHEST PAIN Verified 12/25/18 21:28 RAPID HEART BEAT HIGH BP RASH Penicillins Allergy Intermediate HIVES Verified 12/25/18 21:28 Sulfa (Sulfonamide Allergy Intermediate HIVES Verified 12/25/18 21:28 Antibiotics) doxycycline AdvReac Intermediate Pseudo Unverified 12/25/18 21:28 tumor cerebri neomycin AdvReac Unknown ITCHY Verified 12/25/18 21:28 prednisone AdvReac Unknown TACHYCARDIA Verified 12/25/18 21:28 DECONGESTANTS AdvReac Unknown TACHYCARDIA Uncoded 12/25/18 21:28 Home Medications Home Medications Medication Instructions Recorded Confirmed Type Januvia 100 mg PO DAILY 12/10/18 12/25/18 History acetazolamide 500 mg PO DAILY 12/10/18 12/25/18 History atenolol 50 mg PO BID 12/10/18 12/25/18 History cyanocobalamin (vitamin B-12) 1,000 mcg PO DAILY 12/10/18 12/25/18 History folic acid 1 mg PO DAILY 12/10/18 12/25/18 History furosemide 40 mg PO BID 12/10/18 12/25/18 History nystatin 1 applic TOPICAL BID PRN 12/10/18 12/25/18 History omeprazole 40 mg PO QAM 12/10/18 12/25/18 History ranitidine HCl 300 mg PO HS 12/10/18 12/25/18 History warfarin 2.5 mg PO .ONCE WEEKLY 12/10/18 12/25/18 History warfarin 5 mg PO 6XWK 12/10/18 12/25/18 History atorvastatin 40 mg PO QAM 40 Days #40 tab 12/12/18 12/25/18 Rx amlodipine 10 mg PO DAILY 12/25/18 12/25/18 History rosuvastatin 20 mg PO DAILY 12/25/18 12/25/18 History aspirin 162 mg PO DAILY #60 tab 12/26/18 Rx Past Med/Surg History Medical History Sleep apnea (Chronic) Tobacco use (Chronic) Pulmonary hypertension (Chronic) MTHFR gene mutation (Chronic) Pseudotumor cerebri (Chronic) History of pulmonary embolism (Chronic) Dyslipidemia (Chronic) Diabetes mellitus, type II (Chronic) Hypertension (Chronic) Right sided weakness Surgical History History of carpal tunnel surgery (Chronic) Family History Other Diabetes Hypertension Social History Preferred Language: [place] Communication Ability: Effective Beliefs That Will Affect Care: None marital status: Single Current Living Situation: Alone Other Information That Helps Us Care for You: No Feels Safe at Home: Yes Safety Concerns: Feels Safe At This Time Smoking Status: Current every day smoker Tobacco Type: cigarettes Cigarettes Per Day: 20 Second Hand Exposure: No Hx Alcohol Use: No Hx Substance Use: No Review of Systems Review of Systems: As per HPI, all 10 systems reviewed, all other ROS negative Physical Exam Physical Exam: GENERAL: Comfortable, obese, no respiratory distress SKIN: Normal color, warm HEENT: [place] palpebral conjunctivae, no ptosis, dry buccal mucosa NECK : Supple, short neck, no tenderness CHEST : Decreased breath sounds , no tenderness HEART : RRR, no obvious murmurs ABDOMEN: Some distention, nontender EXTREMITIES : Minimal LE swelling, no LE tenderness, no other conspicuous deformities noted NEUROLOGIC : Coherent, no facial asymmetry; MMTs RUE/RLE 4/5, LUE 3/5, LLE 2/5, no other gross focality Results & Data Vital Signs (Past 12 Hours) Vital Signs Temp Pulse Pulse Resp BP BP Pulse Ox 12/28/18 06:24 87 L 12/28/18 06:20 65 20 143/72 H 87 L 12/28/18 05:06 36.8 C 68 18 143/72 H 93 Laboratory Results Laboratory Results WBC 7.31 K/uL (4.8-10.8) 12/28/18 05:30 RBC 5.40 M/uL (4.2-5.4) 12/28/18 05:30 Hgb 16.9 g/dL (12.0-16.0) H 12/28/18 05:30 Hct 47.9 % (37-47) H 12/28/18 05:30 MCV 88.7 fL (80-100) 12/28/18 05:30 MCH 31.3 pg (25-34) 12/28/18 05:30 MCHC 35.3 g/dL (32-36) 12/28/18 05:30 RDW Std Deviation 43.0 fL (36.4-46.3) 12/28/18 05:30 RDW Coeff of Teodoro 13.3 % (11.5-14.5) 12/28/18 05:30 Plt Count 116 K/uL (130-400) L 12/28/18 05:30 MPV 11.5 fL (7.4-10.4) H 12/28/18 05:30 Immature Gran % (Auto) 0.3 % 12/28/18 05:30 Neut % (Auto) 68.6 % 12/28/18 05:30 Lymph % (Auto) 22.3 % 12/28/18 05:30 [place] % (Auto) 7.1 % 12/28/18 05:30 Eos % (Auto) 1.4 % 12/28/18 05:30 Baso % (Auto) 0.3 % 12/28/18 05:30 Immature Gran # (Auto) 0.02 K/uL (0.00-0.02) 12/28/18 05:30 Neut # (Auto) 5.02 K/uL (1.4-6.5) 12/28/18 05:30 Lymph # (Auto) 1.63 K/uL (1.2-3.4) 12/28/18 05:30 [place] # (Auto) 0.52 K/uL (0.11-0.59) 12/28/18 05:30 Eos # (Auto) 0.10 K/uL (0-0.5) 12/28/18 05:30 Baso # (Auto) 0.02 K/uL (0-0.2) 12/28/18 05:30 PT 32.7 Seconds (9.0-12.0) H 12/28/18 05:30 INR 3.5 (0.9-1.1) H 12/28/18 05:30 APTT 44.3 Seconds (21.0-31.0) H 12/28/18 05:30 PTT Ratio 1.6 12/28/18 05:30 Sodium 140 mmol/L (136-145) 12/28/18 05:30 Potassium 3.2 mmol/L (3.5-5.1) L 12/28/18 05:30 Chloride 109 mmol/L (98-107) H 12/28/18 05:30 Carbon Dioxide 23 mmol/L (21-32) 12/28/18 05:30 Anion Gap 8.0 (3-11) 12/28/18 05:30 BUN 11 mg/dl (7-18) 12/28/18 05:30 Creatinine 0.68 mg/dl (0.6-1.2) 12/28/18 05:30 Est Cr Clr Drug Dosing 116.6 ml/min 12/28/18 05:30 Est GFR ( Amer) 112.5 12/28/18 05:30 Est GFR (Non-Af Amer) 97.1 12/28/18 05:30 BUN/Creatinine Ratio 16.3 (10-20) 12/28/18 05:30 Glucose 158 mg/dl (70-99) H 12/28/18 05:30 POC Glucose 152 (70-99) H 12/28/18 05:28 Calcium 8.7 mg/dl (8.5-10.1) 12/28/18 05:30 Magnesium 1.9 mg/dl (1.8-2.4) 12/28/18 05:30 Total Bilirubin 1.3 mg/dl (0.2-1) H 12/28/18 05:30 AST 17 U/L (15-37) 12/28/18 05:30 ALT 21 U/L (12-78) 12/28/18 05:30 Alkaline Phosphatase 78 U/L (45-117) 12/28/18 05:30 Troponin I < 0.015 ng/ml (0-0.045) 12/28/18 05:30 Total Protein 6.8 gm/dl (6.4-8.2) 12/28/18 05:30 Albumin 3.5 gm/dl (3.4-5.0) 12/28/18 05:30 Globulin 3.3 gm/dl (2.5-4.0) 12/28/18 05:30 Albumin/Globulin Ratio 1.1 (0.9-2) 12/28/18 05:30 Urine Color Yellow 12/28/18 05:55 Urine Appearance Clear (Clear) 12/28/18 05:55 Urine pH 6.5 (4.5-7.5) 12/28/18 05:55 Ur Specific [place] 1.014 (1.000-1.030) 12/28/18 05:55 Urine Protein Negative (Negative) 12/28/18 05:55 Urine Glucose (UA) Negative (Negative) 12/28/18 05:55 Urine Ketones Negative (Negative) 12/28/18 05:55 Urine Blood Trace (Negative) H 12/28/18 05:55 Urine Nitrite Negative (Negative) 12/28/18 05:55 Urine Bilirubin Negative (Negative) 12/28/18 05:55 Urine Urobilinogen Negative (Negative) 12/28/18 05:55 Ur Leukocyte Esterase Negative (Negative) 12/28/18 05:55 Urine WBC (Auto) 1-5 /hpf (0-5) 12/28/18 05:55 Urine RBC (Auto) 0-4 /hpf (0-4) 12/28/18 05:55 U Hyaline Cast (Auto) 1-5 /lpf (0-5) 12/28/18 05:55 U Epithel Cells (Auto) >30 /lpf (0-5) H 12/28/18 05:55 Urine Bacteria (Auto) Negative (Negative) 12/28/18 05:[address] head initial read negative Chest x-ray as per my interpretation congestion EKG as per my interpretation : Rate 70, RAD, LP FB, incomplete RBBB, T wave flattening inferior leads
[2018-12-28] MEDS ORDERED: FUROSEMIDE 40 MG/4 ML VIAL IV ONE (08:04)
[2018-12-28] MEDS ORDERED: FUROSEMIDE 20 MG in SYRINGE 0 ML IV STA (08:05)
[2018-12-28] MEDS ORDERED: PROMETHAZINE HCL 12.5 MG in SODIUM CHLORIDE 0.9% 50 ML IV PRN (08:59)
[2018-12-28] MEDS ORDERED: DEXTROSE 50% 50 ML SYRINGE IV PRN (08:59)
[2018-12-28] MEDS ORDERED: IPRATROPIUM BROMIDE NEB SOLN 0.02% 2.5 ML VIAL INH PRN (08:59)
[2018-12-28] MEDS ORDERED: LEVALBUTEROL 1.25MG/0.5ML NEB INH PRN (08:59)
[2018-12-28] MEDS ORDERED: CARBOHYDRATES FOR HYPOGLYCEMIA PO PRN (08:59)
[2018-12-28] MEDS ORDERED: NITROGLYCERIN SL 0.4 MG/TAB TAB SL PRN (08:59)
[2018-12-28] MEDS ORDERED: ACETAMINOPHEN 325 MG TAB PO PRN (08:59)
[2018-12-28] MEDS ORDERED: GLUCOSE 10 TABS/TUBE PO PRN (08:59)
[2018-12-28] MEDS ORDERED: GLUCOSE 40% GEL 15 GM TUBE PO PRN (08:59)
[2018-12-28] MEDS ORDERED: XOPENEX/ATROVENT 1.25mg/0.5MG NEB COMBO NEB PRN (08:59)
[2018-12-28] MEDS ORDERED: GLUCAGON FOR INJ 1 MG VIAL SQ PRN (08:59)
[2018-12-28] MEDS ORDERED: LORazepam 0.25 MG/0.5 ML VIAL IV PRN (08:59)
[2018-12-28] MEDS ORDERED: PHARMACIST DISCHARGE MED REC CONSULT PRN (08:59)
[2018-12-28] MEDS ORDERED: ROSUVASTATIN CALCIUM 20 MG TAB PO SCH (09:00)
[2018-12-28] MEDS ORDERED: ALBUT/IPRATROP 3MG/0.5MG NEB 3 ML VIAL NEB STA (09:00)
[2018-12-28] MEDS: PANTOprazole 40 MG TAB PO SCH (10:13)
[2018-12-28] MEDS: FOLIC ACID 1 MG TAB PO SCH (10:13)
[2018-12-28] MEDS: INSULIN ASPART 100 UNITS/ML 3 ML PEN SC SCH ×4 (10:14→20:52)
--- NOTE | 2018-12-28 11:07 | Communication Note ---
Date of Service: December 28, 2018 Kathryn is 58 years old, has a host of vascular risk factors including hypertension diabetes sleep apnea and continued cigarette smoking, has pseudotumor cerebri on low-dose Diamox and a coagulopathy with pulmonary embolism treated with chronic Coumadin I first saw her about 3 weeks ago when she presented with some transient left arm and leg weakness and was found to have a small punctate area of infarction in the right temporal lobe which anatomically did not really explain things very well but led to the diagnosis of TIAs, treatment with aspirin added to her Coumadin and initially she did well but then was readmitted last week with fluctuating left arm and leg weakness and by the time Ana Dawson PA-C and I saw her on Saturday she had been stable for 24 hours and we simply double the aspirin 262 mg, continue the Coumadin and the Diamox and recommended an outpatient MRI which unfortunately could not be done over the weekend because of her need to have general anesthesia due to her extreme claustrophoia. An attempt to obtain an MRI one Saturday was aborted because of the fact that she had ingested some food and anesthesia did not feel comfortable performing general anesthesia in the setting Over the weekend and specifically remainder Saturday and Saturday she did well but then in the afternoon on Saturday he began to notice progressive weakness of the left leg and arm and presented last night and has now been admitted to the hospital with a pure motor hemiparesis affecting the leg more than the arm more than the face without any sensory loss, headache or any other symptoms and with a negative CT scan for demonstrable infarction or bleed On exam currently her blood pressure 154/85 pulse is 64 regular respirations 18 she is afebrile she is awake alert oriented with slightly dysarthric speech, mild left upper motor neuron facial asymmetry, moderate paralysis of the left arm with increased tone and proximal more than distal weakness, hyperreflexia, loss of facility, positive Jennifer sign and a significant paralysis of the left leg with hypertonicity, and an extensor toe sign, and virtually no antigravity strength save in proximal muscles were some ability to raise the leg off the bed still exists but cannot be sustained sensory examination is normal visual examinations are normal At this point 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 I cannot exclude a brainstem localization specifically in the breanna. She has had an extensive work-up in the past with analysis of her intracranial and extracranial circulation and an echocardiographic study none of which showed any significant evidence for extracranial or intracranial disease other than some atherosclerotic changes of the internal carotids bilaterally at the level of the siphons no significant flow reduction was seen small vessels of the lenticulostriate group and other perforating vessels supplying the deep basal ganglia were obviously not visualized due to the technological limits of CTA At this point we are going to add Plavix to the baby aspirin to the Coumadin and I would reduce the aspirin dose back to 81 mg this increases her risk of bleeding significantly and I think this should be done on a short-term basis perhaps only 21 days at which point I think Plavix would be the agent we would use in conjunction with the Coumadin given the fact that low-dose aspirin for several weeks did not prevent progression of this assume small vessel event We will try to get the MRI done with anesthesia this time around She is clearly going to need rehabilitation efforts, physical therapy, occupational therapy and probably speech therapy analysis at least Ana Dawson and I will be back to see her tomorrow on rounds Ashwin Michaels MD
--- NOTE | 2018-12-28 11:15 | CT Scan Report ---
CT SCAN OF THE BRAIN WITHOUT IV CONTRAST CLINICAL HISTORY: Strokelike symptoms. Fall. Left upper and lower extremity weakness. COMPARISON STUDY: CT of the brain dated 12/25/2018. TECHNIQUE: Unenhanced axial CT scan of the brain is performed from the vertex to the skull base. A d ose lowering technique was utilized adhering to the principles of ALARA. CT DOSE: 537.48 mGy.cm FINDINGS: Brain parenchyma: There is a 12 mm focus of low attenuation centered in the right internal capsule, w hich is new from previous. This likely represents an acute to subacute lacunar infarct. There is no h emorrhage, mass effect, or evidence of acute territorial ischemia by CT criteria. Singh-white matter d ifferentiation is preserved. No extra-axial fluid collection is seen. Ventricles, sulci, cisterns: Normal in configuration. Intracranial vasculature: There is atherosclerotic calcification of the cavernous carotid and vertebr al arteries. Calvarium: Unremarkable. Sinuses and mastoids: The visualized paranasal sinuses are clear. The mastoid air cells are well pneu matized. Orbits: The bony orbits are grossly intact. IMPRESSION: 1. There is no hemorrhage, mass effect, or evidence of acute territorial ischemia by CT criteria. 2. There is a 12 mm focus of low attenuation centered in the right internal capsule. This is new from previous and likely represents an acute to subacute lacunar infarct. Electronically signed by: Stanislaw Hamilton M.D. 12/28/2018 11:14 AM
[2018-12-28] MEDS: ATORVASTATIN 40 MG TAB PO SCH (11:28)
[2018-12-28] MEDS ORDERED: MICONAZOLE NITRATE POWDER 43 GM EXT PRN (14:54)
--- NOTE | 2018-12-28 17:56 | Hospitalist Progress Note ---
Date of Service December 28, 2018 Assessment & Plan (1) Acute CVA (cerebrovascular accident): Presented with dense left-sided paralysis CT head noncontrast: IMPRESSION: 1. There is no hemorrhage, mass effect, or evidence of acute territorial ischemia by CT criteria. 2. There is a 12 mm focus of low attenuation centered in the right internal capsule. This is new from previous scan on 12/25/2018 and likely represents an acute to subacute lacunar infarct. Patient is a high risk for CVA: Hypercoagulable state on Coumadin, Had stroke/TIA approximately 6 weeks back, was discharged home with Coumadin with addition of aspirin Repeat admission 2 days back with left-sided weakness paresthesia symptom improved markedly in [address] head at that time showed no change, MRI of brain could not be done secondary to severe claustrophobia unable to coordinate with anesthesiologist And was seen by neurology team As patient clinically improved-thought to be stable to be discharged home Patient aspirin dose was increased to 162 mg daily Coumadin was continued INR was 2.9 Plan was to schedule outpatient MRI/MRA and neurology for Presented 48 hours with worsening and persistent neurological symptom with left- sided dense paresis CT head noncontrast shows new change on right internal capsule area On Coumadin INR therapeutic at 3 Plavix added Neurology consulted appreciate input Patient scheduled for MRI MRA tomorrow with anesthesiology consult for sedation (2) Anticoagulated on Coumadin: Continue Coumadin INR therapeutic (3) Hypokalemia: Secondary to diuretics, given p.o. potassium replacement, repeat BMP in a.m. (4) Tobacco use: Patient is asked for strict smoking cessation given acute CVA, patient in agreement to quit (5) MTHFR gene mutation: History of PE On chronic Coumadin anticoagulation -recurrent stroke noted while on therapeutic INR Addition of Plavix ordered by neurology (6) Pseudotumor cerebri: On acetazolamide (7) History of pulmonary embolism: On Coumadin INR therapeutic (8) Diabetes mellitus, type II: Insulin sliding scale while in hospital CODE STATUS: Full code DVT prophylaxis continue Coumadin Disposition: Patient is ordered PT OT speech evaluation Will need acute rehab on discharge for acute CVA leading to left-sided hemiparesis Social service consult for discharge planning Subjective Continues to have dense left-sided paresis, worse on lower extremity unable to lift left lower leg against gravity Speech fluent, denies of any headache, no blurred vision, no shortness of breath Patient was discharged home 2 days ago-presentation of TIA, symptoms almost resolved prior to discharge On Coumadin for hypercoagulable status INR therapeutic Appreciate input from neurology, added Plavix Patient will need MRI/MRA of brain to assess exact location and extension of stroke Due to severe claustrophobia patient will need anesthesia induced sedation prior to MRI Anesthesiologist consulted Patient is ordered n.p.o. past midnight MRI scan will be coordinated with anesthesiology for sedation tomorrow Physical Exam Constitutional: WD/WN, vitals as above no acute distress Eyes: PERRL, conjunctivae normal, anicteric sclerae ENMT: external ear and nose normal, oropharynx normal Neck: trachea midline, no thyromegaly Respiratory: normal respiratory effort, lungs clear to auscultation Cardiovascular: RRR, no murmur, no edema Gastrointestinal (Abdomen): normal bowel sounds, soft, nontender, no hepatosplenomegaly Musculoskeletal: Dense left lower extremity paralysis, left upper extremity strength 1-2/5 Skin: no rashes, warm and dry Neurologic: Left sided paralysis Psychiatric: A+Ox3, euthymic affect Results & Data Vital Signs (Past 12 Hours) Vital Signs Temp Pulse Pulse Resp BP BP Pulse Ox 12/28/18 15:55 62 12/28/18 15:03 36.6 C 61 20 121/76 95 12/28/18 11:32 36.7 C 74 16 135/67 100 12/28/18 10:00 36.6 C 64 18 154/85 H 91 12/28/18 08:10 59 L 20 133/71 94 12/28/18 06:24 87 L 12/28/18 06:20 65 20 143/72 H 87 L (1) Diabetes mellitus, type II Diabetes mellitus long term care administrator insulin use: without nursing home use Diabetes mellitus complication status: with other specified complication Qualified Code(s): E11.69 - Type 2 diabetes mellitus with other specified complication
[2018-12-28] MEDS: INSULIN GLARGINE SOLOSTAR 100 UNITS/ML 3 ML PEN SQ SCH (21:03)
[2018-12-28] MEDS ORDERED: TRAZODONE HCL 50 MG TAB PO ONE (21:12)
[2018-12-28] MEDS: TRAMADOL HCL 50 MG TABLET PO SCH (21:28)
[2018-12-29] MEDS ORDERED: Nursing to Pharmacy Communication ONE (00:25)
[2018-12-29] MEDS: INSULIN ASPART 100 UNITS/ML 3 ML PEN SC SCH ×3 (06:17→18:28)
[2018-12-29 07:37] LABS: Basophils # (auto) 0.01 K/uL (0-0.2); Basophils % (auto) 0.2 %; Eosinophils # (auto) 0.07 K/uL (0-0.5); Eosinophils % (auto) 1.2 %; Hematocrit (blood only) 46.6 % (37-47); Immature Granulocytes # (auto) 0.02 K/uL (0.00-0.02); Immature Granulocytes % (auto) 0.3 %; Lymphocytes # (auto) 1.52 K/uL (1.2-3.4); Lymphocytes % (auto) 25.2 %; Mean Corpuscular Hgb Conc 34.3 g/dL (32-36); Mean Corpuscular Volume 89.4 fL (80-100); Mean Platelet Volume 11.8 fL (7.4-10.4); Monocytes # (auto) 0.35 K/uL (0.11-0.59); Monocytes % (auto) 5.8 %; Neutrophils # (auto) 4.06 K/uL (1.4-6.5); Neutrophils % (auto) 67.3 %; Platelet Count 106 K/uL (130-400); RDW Coefficient of Variation 13.2 % (11.5-14.5); RDW Standard Deviation 43.2 fL (36.4-46.3); Red Blood Count 5.21 M/uL (4.2-5.4); White Blood Count 6.03 K/uL (4.8-10.8)
[2018-12-29 07:49] LABS: INR 2.9 (0.9-1.1); Prothrombin Time 27.9 Seconds (9.0-12.0)
[2018-12-29 08:18] LABS: BUN Creatinine Ratio 18.3 (10-20); Calcium 8.6 mg/dl (8.5-10.1); Creatinine Clr Calc Pharmacy 106.8 ml/min; Est GFR (Non-African American) 91.4; Potassium 3.2 mmol/L (3.5-5.1)
--- NOTE | 2018-12-29 11:32 | Hospitalist Progress Note ---
Date of Service December 29, 2018 Assessment & Plan (1) Acute CVA (cerebrovascular accident): Involvement right internal capsule Presented with dense left-sided paralysis CT head noncontrast: IMPRESSION: 1. There is no hemorrhage, mass effect, or evidence of acute territorial ischemia by CT criteria. 2. There is a 12 mm focus of low attenuation centered in the right internal capsule. This is new from previous scan on 12/25/2018 and likely represents an acute to subacute lacunar infarct. Patient is a high risk for CVA: Hypercoagulable state on Coumadin, Third event in the last few weeks Had stroke/TIA approximately 3 weeks back, was discharged home with Coumadin with addition of aspirin Repeat admission 2 days back with left-sided weakness paresthesia symptom improved markedly in [address] head at that time showed no change, MRI of brain could not be done secondary to severe claustrophobia unable to coordinate with anesthesiologist And was seen by neurology team As patient clinically improved-thought to be stable to be discharged home Patient aspirin dose was increased to 162 mg daily Coumadin was continued INR was 2.9 Plan was to schedule outpatient MRI/MRA and neurology outpatient Presented 48 hours with worsening and persistent neurological symptom with left- sided dense paresis CT head noncontrast shows new change on right internal capsule area-outlined as above On Coumadin INR therapeutic at 3 Plavix added Neurology consulted appreciate input -Patient will be continued with dual anti-platelets aspirin 81 mg/Plavix for 3 weeks/along with Coumadin Plavix will be discontinued after 21 days to reduce risk of bleeding Patient is severely claustrophobic, had prior trial of IV Ativan prior to MRI which was not effective Patient scheduled for MRI MRA today with anesthesiology consult for sedation PT OT evaluation requested Patient will benefit with acute rehab post CVA (2) Anticoagulated on Coumadin: Continue Coumadin INR therapeutic (3) Hypokalemia: Corrected (4) Tobacco use: Patient is asked for strict smoking cessation given acute CVA, patient in agreement to quit (5) MTHFR gene mutation: History of PE On chronic Coumadin anticoagulation -recurrent stroke noted while on therapeutic INR Addition of Plavix ordered by neurology Patient will continue with dual antiplatelets for 21 days along with full anticoagulation with Coumadin for recurrent CVA (6) Pseudotumor cerebri: On acetazolamide (7) History of pulmonary embolism: On Coumadin INR therapeutic (8) Diabetes mellitus, type II: Insulin sliding scale while in hospital CODE STATUS: Full code DVT prophylaxis continue Coumadin Disposition: Patient is ordered PT OT speech evaluation Will need acute rehab on discharge for acute CVA leading to left-sided hemiparesis Social service following for discharge planning Subjective Patient reports of mild improvement of left hemiparesis, able to open winder on left hand, Having mild movement on left toe and left feet, still cannot lift up left leg against gravity PT eval earlier, patient will benefit with acute rehab Spoke with anesthesia will have sedation prior to MRI, patient is kept n.p.o. for sedation Patient denies of any headache, no blurred vision, Speech is fluent, no dysphagia Physical Exam Constitutional: WD/WN, vitals as above no acute distress Eyes: PERRL, conjunctivae normal, anicteric sclerae ENMT: external ear and nose normal, oropharynx normal Neck: trachea midline, no thyromegaly Respiratory: normal respiratory effort, lungs clear to auscultation Cardiovascular: RRR, no murmur, no edema Gastrointestinal (Abdomen): normal bowel sounds, soft, nontender, no hepatosplenomegaly Skin: no rashes, warm and dry Neurologic: Left-sided weakness/paresis, mild improvement since yesterday Psychiatric: A+Ox3, euthymic affect Results & Data Vital Signs (Past 12 Hours) Vital Signs Temp Pulse Pulse Resp BP Pulse Ox 12/29/18 07:23 36.4 C L 62 18 139/81 93 12/29/18 04:11 36.6 C 65 18 137/81 93 12/29/18 00:49 67 12/28/18 23:27 36.6 C 64 20 144/82 H 92 (1) Diabetes mellitus, type II Diabetes mellitus skilled nursing insulin use: without intermediate card tender use Diabetes mellitus complication status: with other specified complication Qualified Code(s): E11.69 - Type 2 diabetes mellitus with other specified complication
[2018-12-29] MEDS ORDERED: POTASSIUM CHLORIDE 20 MEQ TABCR PO ONE (11:45)
--- NOTE | 2018-12-29 12:38 | Anesthesiology Consultation ---
Date of Service December 29, 2018 Assessment & Plan (1) Encounter for pre-operative examination: Chart Review Chart Review: Acceptable Risk for Surgery and Patient NOT seen in Pre Admission Testing Consults Requested none ASA ASA3 Proposed Anesthesia Anesthesia Type: MAC Risk / Benefits Reviewed With: PT / POA / Parent / Guardian, Accepts Plan and Informed Consent Obtained History Height/Weight Height: 5 ft 4 in Weight: 116.9 kg Allergies Allergy/AdvReac Type Severity Reaction Status Date / Time moxifloxacin Allergy Intermediate CHEST PAIN Verified 12/25/18 21:28 RAPID HEART BEAT HIGH BP RASH Penicillins Allergy Intermediate HIVES Verified 12/25/18 21:28 Sulfa (Sulfonamide Allergy Intermediate HIVES Verified 12/25/18 21:28 Antibiotics) doxycycline AdvReac Intermediate Pseudo Unverified 12/25/18 21:28 tumor cerebri neomycin AdvReac Unknown ITCHY Verified 12/25/18 21:28 prednisone AdvReac Unknown TACHYCARDIA Verified 12/25/18 21:28 DECONGESTANTS AdvReac Unknown TACHYCARDIA Uncoded 12/25/18 21:28 Medications Home Medications Medication Instructions Recorded Confirmed Last Taken Januvia 100 mg PO DAILY 12/10/18 12/25/18 12/25/18 acetazolamide 500 mg PO DAILY 12/10/18 12/25/18 12/25/18 atenolol 50 mg PO BID 12/10/18 12/25/18 12/25/18 cyanocobalamin (vitamin B-12) 1,000 mcg PO DAILY 12/10/18 12/25/18 12/25/18 folic acid 1 mg PO DAILY 12/10/18 12/25/18 12/25/18 furosemide 40 mg PO BID 12/10/18 12/25/18 12/25/18 nystatin 1 applic TOPICAL BID PRN 12/10/18 12/25/18 12/25/18 omeprazole 40 mg PO QAM 12/10/18 12/25/18 12/25/18 ranitidine HCl 300 mg PO HS 12/10/18 12/25/18 12/24/18 warfarin 2.5 mg PO .ONCE WEEKLY 12/10/18 12/25/18 12/22/18 warfarin 5 mg PO 6XWK 12/10/18 12/25/18 12/25/18 atorvastatin 40 mg PO QAM 40 Days #40 tab 12/12/18 12/25/18 12/25/18 amlodipine 10 mg PO DAILY 12/25/18 12/25/18 12/25/18 rosuvastatin 20 mg PO DAILY 12/25/18 12/25/18 12/25/18 aspirin 162 mg PO DAILY #60 tab 12/26/18 Unknown Active Medications Generic Name Dose Route Start Last Admin Trade Name Freq PRN Reason Stop Dose Admin Atorvastatin Calcium 40 mg 12/28/18 09:00 12/28/18 11:28 Lipitor PO 01/27/19 08:59 40 mg QAM BOGDAN Administration Folic Acid 1 mg 12/28/18 09:00 12/28/18 10:13 Folvite PO 01/27/19 08:59 1 mg DAILY BOGDAN Administration Insulin Aspart 0 units 12/29/18 06:00 12/29/18 06:17 Novolog Flexpen SC 01/28/19 05:59 Not Given Q6 BOGDAN Insulin Glargine 5 units 12/28/18 21:00 12/28/18 21:03 Lantus Solostar Pen SQ 01/27/19 20:59 5 units HS BOGDAN Administration Miconazole Nitrate 1 appln 12/28/18 14:54 12/28/18 15:54 Desenex EXT 01/27/19 14:53 1 appln PRN PRN Administration Affected Skin Folds Pantoprazole Sodium 40 mg 12/28/18 09:00 12/28/18 10:13 Protonix PO 01/27/19 08:59 40 mg QAM BOGDAN Administration Ranitidine HCl 300 mg 12/28/18 21:00 12/28/18 21:04 Zantac PO 01/27/19 20:59 300 mg HS BOGDAN Administration Tramadol HCl 50 mg 12/28/18 21:10 12/28/18 21:28 Ultram PO 01/27/19 21:09 Not Given HS BOGDAN Past Medical History Medical History Sleep apnea (Chronic) Tobacco use (Chronic) Pulmonary hypertension (Chronic) MTHFR gene mutation (Chronic) Pseudotumor cerebri (Chronic) History of pulmonary embolism (Chronic) Dyslipidemia (Chronic) Diabetes mellitus, type II (Chronic) Hypertension (Chronic) Right sided weakness Exercise / Class Metabolic Activity II 4-5 Yardwork/Stairs/Walk up hill Past Family History Family History Other Diabetes Hypertension Past Surgical History Surgical History History of carpal tunnel surgery (Chronic) Past Anesthesia History No Hx of Anesthesia Complications and No Family Hx of Anesthesia Complications History of PONV No Hx of PONV and No Hx of Motion Sickness Social History Smoking Status: Current every day smoker tobacco type: cigarettes Smoking cigarettes per day: 20 Hx Alcohol Use: No Hx Substance Use: No substance use type: does not use Physical Exam Vital Signs Last Vital Signs Temp 36.4 C L 12/29/18 07:23 Pulse 62 12/29/18 07:23 Resp 18 12/29/18 07:23 BP 139/81 12/29/18 07:23 Pulse Ox 93 12/29/18 07:23 Constitutional + morbidly obese ENMT Mouth: no dentition abnormality Thyromental Distance: > or= 3.5 Finger Breadths Mallampati Class: II Neck normal visual inspection and + thick neck Respiratory normal respiratory effort Auscultation: lungs clear to auscultation bilaterally Cardiovascular Rate/Rhythm: regular rate and regular rhythm Neurologic moves all extremities (Minimal strength in LUE and LLE. No facial droop or dysarthria) Psychiatric Orientation: alert Testing Laboratory Results 12/29/18 06:59 12/29/18 06:59 PT 27.9 Seconds (9.0-12.0) H 12/29/18 06:59 INR 2.9 (0.9-1.1) H 12/29/18 06:59 APTT 44.3 Seconds (21.0-31.0) H 12/28/18 05:30 Hemoglobin A1c Cancelled 12/28/18 05:30 Urine Color Yellow 12/28/18 05:55 Urine Appearance Clear (Clear) 12/28/18 05:55 Urine pH 6.5 (4.5-7.5) 12/28/18 05:55 Ur Specific [place] 1.014 (1.000-1.030) 12/28/18 05:55 Urine Protein Negative (Negative) 12/28/18 05:55 Urine Glucose (UA) Negative (Negative) 12/28/18 05:55 Urine Ketones Negative (Negative) 12/28/18 05:55 Urine Nitrite Negative (Negative) 12/28/18 05:55 Ur Leukocyte Esterase Negative (Negative) 12/28/18 05:55 Urine WBC (Auto) 1-5 /hpf (0-5) 12/28/18 05:55 Urine RBC (Auto) 0-4 /hpf (0-4) 12/28/18 05:55 U Hyaline Cast (Auto) 1-5 /lpf (0-5) 12/28/18 05:55 U Epithel Cells (Auto) >30 /lpf (0-5) H 12/28/18 05:55 Urine Bacteria (Auto) Negative (Negative) 12/28/18 05:55 12/29/18 12/29/18 12/29/18 11:36 07:40 06:10 POC Glucose 136 H 164 H 141 H Chest X-Ray Date: 12/28/18 Findings: + NAD Echocardiogram Date: 12/11/18 EF: 65% LV Function: normal Valvular Disease: + no significant valvular disease
--- NOTE | 2018-12-29 13:40 | Neurology Progress Note ---
Date of Service December 29, 2018 Josef Peralta has a PMH HTN, HLD, PE on Coumadin, h/o MTHFR mutation, DM II, pulmonary hypertension, pseudotumor cerebri, sleep apnea, tobacco use presented to ER with complaint of left arm and left leg weakness and was seen 12/25/2018. The previous admission she had 4 days on left arm/leg weakness which lasted approximately 15 minutes and resolved then returned and again her leg felt "funny" and left arm and leg felt weak and associated lightheadedness and resolved after 30 minutes. The symptoms seem to wax and wane and then became more consistent and she had to concentrate to make her arm and leg move. She was to have an MRI brain to evaluate the stroke but had eaten and the MRI was to be arranged as outpatient. She returned to [facility] on 12/28 with persistent left arm and leg weakness. denies CP, SOB, abdominal pain, numbness tingling, N, V, swallowing or speech issues, vision changes.+ left sided weakness. Results & Data Vital Signs (Past 12 Hours) Vital Signs Temp Pulse Resp BP Pulse Ox 12/29/18 12:52 36.5 C 67 16 153/66 H 94 12/29/18 07:23 36.4 C L 62 18 139/81 93 12/29/18 04:11 36.6 C 65 18 137/81 93
--- NOTE | 2018-12-29 14:18 | Neurology Consultation ---
Date of Consultation December 29, 2018 Assessment & Plan (1) Acute CVA (cerebrovascular accident): 1. MRI brain with and without- anaesthesia to help with patient she is currently NPO 2. continue coumadin for therapeutic INR 2.0-3.0 3. aspirin 81 mg, added plavix 75 mg will continue for 21 days and then plavix for a lifetime 4. PT/OT for discharge needs 5. optimize HTN, HLD, DM LDL < 70 6. strongly urged smoking cessation patient understands this is a high risk fracture she was a 2 ppd smoking for years 7. likely [facility] tomorrow if stable medically (2) Left-sided weakness: same as above Supervising Physician Co-Signing Physician Notes I have seen and discussed above patient with Dr Ashwin Michaels, neurology Kathryn is slightly better today with a less dense left upper extremity paresis and return of some antigravity function in the left lower extremity with less spontaneous spasms of the left leg but with persistent hyperreflexia, and extensor toe sign and reduced facility rapid repetitive motions in the left arm and leg with increasing flexion of the left arm at the elbow and wrist. No sensory deficits are reported by the patient and the left upper motor neuron facial involvement is minimal at most. 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 He could also reflect a perforating vessel issue at the level of the right breanna but most of these deficits extend dorsally and are associated with sensory loss and varying degrees of extraocular dysmotility unfortunately my experience trying to prevent development of a completed stroke in the setting of multiple recurrent TIAs due to small vessel disease is difficult at best and most of these patients no matter what we do in terms of anticoagulation, to progress to a completed event and I think this is what has occurred here The issues academic were noted continue a combination of Coumadin and aspirin at 81 mg and now Plavix at 75 mg for the next 21 days, stop the aspirin and continue only Coumadin and Plavix and in the interim hopefully today we will get an MRI scan that I trust will give us the anatomic basis for this left hemiparesis Will be back tomorrow to check on the imaging study and her status Ashwin Michaels MD History of Present Illness Reason for Consultation: CVA Requesting Physician: Elissa Wilkins MD Attending Physician: Elissa Bahena MD History of Present Illness Kathryn has a PMH HTN, HLD, PE on Coumadin, h/o MTHFR mutation, DM II, pulmonary hypertension, pseudotumor cerebri, sleep apnea, tobacco use presented to ER with complaint of left arm and left leg weakness and was seen 12/25/2018. The previous admission she had 4 days on left arm/leg weakness which lasted approximately 15 minutes and resolved then returned and again her leg felt "funny" and left arm and leg felt weak and associated lightheadedness and resolved after 30 minutes. The symptoms seem to wax and wane and then became more consistent and she had to concentrate to make her arm and leg move. She was to have an MRI brain to evaluate the stroke but had eaten and the MRI was to be arranged as outpatient. Her aspirin was increased from 81 mg to 162 mg daily and coumadin INR between 2.0-3.0. She returned to [facility] on 12/28 with persistent left arm and leg weakness. She states the symptoms started on Saturday. She then st arted walking to the bathroom with assistance but her knee collapsed and she was on the floor unable to get up. EMS was called and brought her into [facility]. Her plavix 72 mg was added and her aspirin was reduced back to 81 mg. She states the left sided weakness has improved but still difficulty with walking. She is scheduled for MRI and currently NPO per anaesthesia protocol. She was a 2 ppd smoker but has cut down to a ppd. She is on coumadin for hypercoag state and previous PEs.discused this along with DM, HTN, HLD are all increased risk factors for stroke. She voices an understanding. denies CP, SOB, abdominal pain, numbness tingling, N, V, swallowing or speech issues, vision changes.+ left sided weakness. Allergies Allergy/AdvReac Type Severity Reaction Status Date / Time moxifloxacin Allergy Intermediate CHEST PAIN Verified 12/25/18 21:28 RAPID HEART BEAT HIGH BP RASH Penicillins Allergy Intermediate HIVES Verified 12/25/18 21:28 Sulfa (Sulfonamide Allergy Intermediate HIVES Verified 12/25/18 21:28 Antibiotics) doxycycline AdvReac Intermediate Pseudo Unverified 12/25/18 21:28 tumor cerebri neomycin AdvReac Unknown ITCHY Verified 12/25/18 21:28 prednisone AdvReac Unknown TACHYCARDIA Verified 12/25/18 21:28 DECONGESTANTS AdvReac Unknown TACHYCARDIA Uncoded 12/25/18 21:28 Home Medications Home Medications Medication Instructions Recorded Confirmed Type Januvia 100 mg PO DAILY 12/10/18 12/25/18 History acetazolamide 500 mg PO DAILY 12/10/18 12/25/18 History atenolol 50 mg PO BID 12/10/18 12/25/18 History cyanocobalamin (vitamin B-12) 1,000 mcg PO DAILY 12/10/18 12/25/18 History folic acid 1 mg PO DAILY 12/10/18 12/25/18 History furosemide 40 mg PO BID 12/10/18 12/25/18 History nystatin 1 applic TOPICAL BID PRN 12/10/18 12/25/18 History omeprazole 40 mg PO QAM 12/10/18 12/25/18 History ranitidine HCl 300 mg PO HS 12/10/18 12/25/18 History warfarin 2.5 mg PO .ONCE WEEKLY 12/10/18 12/25/18 History warfarin 5 mg PO 6XWK 12/10/18 12/25/18 History atorvastatin 40 mg PO QAM 40 Days #40 tab 12/12/18 12/25/18 Rx amlodipine 10 mg PO DAILY 12/25/18 12/25/18 History rosuvastatin 20 mg PO DAILY 12/25/18 12/25/18 History aspirin 162 mg PO DAILY #60 tab 12/26/18 Rx Patient History Medical History Sleep apnea (Chronic) Tobacco use (Chronic) Pulmonary hypertension (Chronic) MTHFR gene mutation (Chronic) Pseudotumor cerebri (Chronic) History of pulmonary embolism (Chronic) Dyslipidemia (Chronic) Diabetes mellitus, type II (Chronic) Hypertension (Chronic) Right sided weakness Surgical History History of carpal tunnel surgery (Chronic) Family History Other Diabetes Hypertension Social History Preferred Language: [place]i Communication Ability: Effective Beliefs That Will Affect Care: None marital status: Single Current Living Situation: Alone Other Information That Helps Us Care for You: No Feels Safe at Home: Yes Safety Concerns: Feels Safe At This Time Smoking Status: Current every day smoker Tobacco Type: cigarettes Cigarettes Per Day: 20 Second Hand Exposure: No Hx Alcohol Use: No Hx Substance Use: No Physical Exam Physical Exam: Physical Exam: Constitutional: appearance over nourished Ears, Nose, Mouth and Throat: mucous membranes moist, no injection and skin normal, eyes normal Cardiovascular: normal S-1 and S-2 and regular rate and rhythm Respiratory: course breath sounds Musculoskeletal: bilateral peripheral edema and distant distal pulses Skin: lower ext venous stasis bilaterally to knee Eyes: extraocular muscles intact (EOMI) and pupils equal, round and reactive to light (PERRL) NEUROLOGIC EXAMINATION: Mental status: Alert and interactive Oriented to full date and location Oriented to person Speech fluent with no evidence of aphasia Cranial Nerves smile eye brow raise symmetric Reflexes: Deep tendon reflexes were symmetrical and graded 2/5. Sensory: no sensory deficits, intact to light and cool touch bilaterally GT proprioception intact Coordination: finger to nose on right, unable to hold left to gravity Gait/Stance: Posture normal sitting up in bed Motor: unable to lift or hold left arm against gravity Strength: biceps triceps hand drive in theater attendant deltoid right 5/5, biceps triceps hand drive in theater attendant 4/5 deltoid 3/5 left right hip flex plantar flex ext 5/5 right left 1/5 Results & Data Vital Signs (Past 12 Hours) Vital Signs Temp Pulse Resp BP Pulse Ox 12/29/18 12:52 36.5 C 67 16 153/66 H 94 12/29/18 07:23 36.4 C L 62 18 139/81 93 12/29/18 04:11 36.6 C 65 18 137/81 93 Laboratory Results Abnormal lab results 12/28/18 12/28/18 12/29/18 Range/Units 16:32 20:22 06:10 Plt Count (130-400) K/uL MPV (7.4-10.4) fL PT (9.0-12.0) Seconds INR (0.9-1.1) Potassium (3.5-5.1) mmol/L Chloride (98-107) mmol/L Glucose (70-99) mg/dl POC Glucose 145 H 161 H 141 H (70-99) 12/29/18 12/29/18 12/29/18 Range/Units 06:59 06:59 06:59 Plt Count 106 L (130-400) K/uL MPV 11.8 H (7.4-10.4) fL PT 27.9 H (9.0-12.0) Seconds INR 2.9 H (0.9-1.1) Potassium 3.2 L (3.5-5.1) mmol/L Chloride 109 H (98-107) mmol/L Glucose 144 H (70-99) mg/dl POC Glucose (70-99) 12/29/18 12/29/18 Range/Units 07:40 11:36 Plt Count (130-400) K/uL MPV (7.4-10.4) fL PT (9.0-12.0) Seconds INR (0.9-1.1) Potassium (3.5-5.1) mmol/L Chloride (98-107) mmol/L Glucose (70-99) mg/dl POC Glucose 164 H 136 H (70-99) Diagnostic Findings CT head- There is no hemorrhage, mass effect, or evidence of acute territorial ischemia by CT criteria. There is a 12 mm focus of low attenuation centered in the right internal capsule. This is new from previous and likely represents an acute to subacute lacunar infarct. CXR-There is prominence of the pulmonary vasculature. Correlate clinically for evidence of mild congestive failure. No airspace consolidation or large pleural effusion is identified.
[2018-12-29] MEDS: ASPIRIN 81 MG ECTAB PO SCH (18:15)
[2018-12-29] MEDS: FOLIC ACID 1 MG TAB PO SCH (18:16)
[2018-12-29] MEDS: WARFARIN SOD 2.5 MG TAB PO SCH (18:16)
[2018-12-29] MEDS: ATORVASTATIN 40 MG TAB PO SCH (18:17)
[2018-12-29] MEDS: PANTOprazole 40 MG TAB PO SCH (18:17)
[2018-12-29] MEDS: CLOPIDOGREL BISULFATE 75 MG TAB PO SCH (18:17)
[2018-12-29] MEDS: INSULIN GLARGINE SOLOSTAR 100 UNITS/ML 3 ML PEN SQ SCH (20:36)
[2018-12-29] MEDS: TRAMADOL HCL 50 MG TABLET PO SCH (20:38)
[2018-12-29] MEDS ORDERED: INSULIN ASPART 100 UNITS/ML 3 ML PEN SC SCH (21:00)
[2018-12-29] MEDS: TRAZODONE HCL 50 MG TAB PO PRN (23:10)
[2018-12-29] MEDS ORDERED: LACTATED RINGER'S 1,000 ML IV SCH (23:15)
[2018-12-30] MEDS ORDERED: Nursing to Pharmacy Communication ONE ×2 (00:39→13:09)
[2018-12-30] MEDS: INSULIN ASPART 100 UNITS/ML 3 ML PEN SC SCH ×4 (06:21→21:11)
[2018-12-30] MEDS: ASPIRIN 81 MG ECTAB PO SCH ×2 (09:32→15:06)
[2018-12-30] MEDS: POTASSIUM CHLORIDE 20 MEQ TABCR PO SCH ×2 (09:33→15:07)
[2018-12-30] MEDS: FOLIC ACID 1 MG TAB PO SCH ×2 (09:33→15:07)
[2018-12-30] MEDS: CLOPIDOGREL BISULFATE 75 MG TAB PO SCH ×2 (09:34→15:08)
[2018-12-30] MEDS: PANTOprazole 40 MG TAB PO SCH ×2 (09:34→15:09)
[2018-12-30] MEDS: ATORVASTATIN 40 MG TAB PO SCH ×2 (09:34→15:08)
[2018-12-30] MEDS ORDERED: MIDAZOLAM HCL 1 MG/ML 2ML VIAL ONE (11:54)
[2018-12-30] MEDS ORDERED: fentaNYL citrate 100 MCG/2 ML VIAL ONE (11:54)
--- NOTE | 2018-12-30 12:48 | Magnetic Resonance Report ---
MR ANGIOGRAM OF THE BRAIN CLINICAL HISTORY: Strokelike symptoms. COMPARISON STUDY: MRI of the brain performed concurrently on [address] angiogram of the brain da alicja 12/10/2018. TECHNIQUE: 3-D [id number] MR angiography of the intracranial circulation is performed. 3-D tumble views are created and assessed. IV contrast was not administered for this examination. FINDINGS: The internal carotid arteries are widely patent bilaterally, as are the anterior and middle cerebral arteries. The vertebrobasilar system and posterior cerebral arteries are widely patent. The left vertebral artery is dominant. There is no aneurysm, high-grade stenosis, or focal vessel cutof f seen throughout the intracranial circulation. The brain parenchyma is normal as visualized. IMPRESSION: Unremarkable MR angiogram of the brain. Electronically signed by: Stanislaw Hamilton M.D. 12/30/2018 12:47 PM
--- NOTE | 2018-12-30 12:50 | Magnetic Resonance Report ---
MR brain wo con HISTORY: Mental status change cva TECHNIQUE: Multiplanar multisequence MRI of the brain was performed without the use of contrast. COMPARISON STUDY: CT 12/28/2018 FINDINGS: Acute/subacute infarct posterior limb right internal capsule. This measures 1.0 x 0.5 cm. No additional foci of acute ischemic change are noted. Coronal FLAIR images demonstrate multiple small foci of increased signal consistent with moderate chr onic small vessel change. The ventricular system is midline. The sella and parasellar regions are unr emarkable. IMPRESSION: 1. Acute/subacute infarct posterior limb right internal capsule. 2. Moderate chronic small vessel change throughout both cerebral hemispheres. 3. No additional acute abnormality. The above report was generated using voice recognition software. It may contain grammatical, syntax or spelling errors. Electronically signed by: Deshawn Levi M.D. 12/30/2018 12:49 PM
--- NOTE | 2018-12-30 13:23 | Anesthesiology Progress Note ---
Date of Service December 30, 2018 Anesthesia Post Procedure Vital Signs Vital Signs: Temp Pulse Pulse Resp BP Pulse Ox 12/30/18 13:02 80 20 148/76 H 94 12/30/18 07:25 36.5 C 64 16 153/84 H 94 12/29/18 23:09 36.5 C 69 18 161/88 H 92 12/29/18 14:38 36.6 C 70 16 150/73 H 94 Transfer of Care Handoff Completed per policy Notes Mental Status: alert / awake / arousable Patient Amnestic to Procedure: Yes Nausea / Vomiting: adequately controlled Pain: adequately controlled Airway Patency, RR, SpO2: stable & adequate BP & HR: stable & adequate Hydration State: stable & adequate Anesthetic Complications: no major complications apparent and Pt Satisfied with anesthetic care
--- NOTE | 2018-12-30 14:10 | Neurology Progress Note ---
Date of Service December 30, 2018 Assessment & Plan (1) Acute CVA (cerebrovascular accident): 1. MRI brain with and without- infarct posterior limb right internal capsule as expected 2. continue coumadin for therapeutic INR 2.0-3.0 3. aspirin 81 mg, added plavix 75 mg will continue for 21 days and then plavix for a lifetime 4. PT/OT for discharge needs 5. optimize HTN, HLD, DM LDL < 70 6. strongly urged smoking cessation patient understands this is a high risk fracture she was a 2 ppd smoking for years 7. likely [facility] tomorrow if stable medically -ok to d/c when stable and cleared with PT (2) Left-sided weakness: same as above Supervising Physician Co-Signing Physician Notes I have seen and discussed above patient with Dr Ashwin Michaels, neurology Kathryn is finally had her MRIs and also is noted in Ana Dawson's note and on the official report and confirms my clinical suspicion that this was a small vessel mediated infarction in the internal capsule (MRI confirms localization to the posterior limb rather than my anterior limb postulate) and her deficits actually do make more sense with relative sparing of the face and a more dense paresis involving the arm and leg on the left I do not think this has very much if anything to do with her underlying coagulopathy and do think it has quite a bit to do with an underlying vasculopathy of atherosclerotic basis with hyalin sclerotic changes in her small perforating vessels originating from the anterior circulation. She presented with several weeks of fluctuating hemiparetic symptoms finally culminating in a completed stroke and actually today is significantly better than she was on presentation and is able to lift the left arm against gravity and to some degree of the left leg with less briskness of her reflexes, less spontaneous spasticity and again with no sensory loss which would make sense anatomically At this point we are going to continue with triple anticoagulant therapy involving Coumadin for her underlying coagulopathy and then aspirin and low-dose and Plavix standard dose providing some antiplatelet coverage over and above the Coumadin She should continue the above regimen for 21 days, stop the aspirin, continue the Plavix and hopefully during that time will be [facility] undergo physical therapy program and improve significantly She is going to be seen by Dr. Ana Singh her regular neurologist after her stay at [facility] assuming this is covered by insurance and will obviously continue her low-dose Diamox for her pseudotumor which was the neurologic problem Dr. Carson was following We will check back with her tomorrow unless she is transferred to rehabilitation facility this afternoon Ashwin Peralta has a PMH HTN, HLD, PE on Coumadin, h/o MTHFR mutation, DM II, pulmonary hypertension, pseudotumor cerebri, sleep apnea, tobacco use presented to ER with complaint of left arm and left leg weakness and was seen 12/25/2018. The previous admission she had 4 days on left arm/leg weakness which lasted approximately 15 minutes and resolved then returned and again her leg felt "funny" and left arm and leg felt weak and associated lightheadedness and resolved after 30 minutes. The symptoms seem to wax and wane and then became more consistent and she had to concentrate to make her arm and leg move. She was to have an MRI brain to evaluate the stroke but had eaten and the MRI was to be arranged as outpatient. Her aspirin was increased from 81 mg to 162 mg daily and coumadin INR between 2.0-3.0. She returned to [facility] on 12/28 with persistent left arm and leg weakness. She states the symptoms started on Saturday. She then started walking to the bathroom with assistance but her knee collapsed and she was on the floor unable to get up. EMS was called and brought her into [facility]. Her plavix 72 mg was added and her aspirin was reduced back to 81 mg. She states the left sided weakness has improved but still difficulty with walking. She is scheduled for MRI and currently NPO per anaesthesia protocol. She was a 2 ppd smoker but has cut down to a ppd. She is on coumadin for hypercoag state and previous PEs. discussed this along with DM, HTN, HLD are all increased risk factors for stroke. She voices an understanding. She states she feels fine after MRI. The only complaint she has in LLE pain with touch. She thinks her arm is working better but the leg is still weak. denies CP, SOB, abdominal pain, numbness tingling, N, V, swallowing or speech issues, vision changes.+ left sided weakness. 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 Moderate chronic small vessel change throughout both cerebral hemispheres. No additional acute abnormality. MRA brain-unremarkable MR angiogram of the brain.
[2018-12-30] MEDS: WARFARIN SOD 2.5 MG TAB PO SCH (16:50)
[2018-12-30 17:29] LABS: Prothrombin Time 19.3 Seconds (9.0-12.0)
--- NOTE | 2018-12-30 17:35 | Hospitalist Progress Note ---
Date of Service December 30, 2018 Assessment & Plan (1) Acute CVA (cerebrovascular accident): Involvement right internal capsule Presented with dense left-sided paralysis MRI of brain:( done after anesthesiology sedation: As patient has severe claustrophobia) Acute/subacute infarct posterior limb right internal capsule. This measures 1.[address] head noncontrast: IMPRESSION: 1. There is no hemorrhage, mass effect, or evidence of acute territorial ischemia by CT criteria. 2. There is a 12 mm focus of low attenuation centered in the right internal capsule. This is new from previous scan on 12/25/2018 and likely represents an acute to subacute lacunar infarct. Patient is a high risk for CVA: Hypercoagulable state on Coumadin, Third event in the last few weeks Had stroke/TIA approximately 3 weeks back, was discharged home with Coumadin with addition of aspirin Repeat admission 2 days back with left-sided weakness paresthesia symptom improved markedly in [address] head at that time showed no change, MRI of brain could not be done secondary to severe claustrophobia unable to coordinate with anesthesiologist And was seen by neurology team As patient clinically improved-thought to be stable to be discharged home Patient aspirin dose was increased to 162 mg daily Coumadin was continued INR was 2.9 Plan was to schedule outpatient MRI/MRA and neurology outpatient Presented 48 hours with worsening and persistent neurological symptom with left- sided dense paresis CT head noncontrast shows new change on right internal capsule area-outlined as above On Coumadin INR therapeutic at 3 Plavix added Neurology consulted appreciate input -Patient will be continued with dual anti-platelets aspirin 81 mg/Plavix for 3 weeks/along with Coumadin Plavix will be discontinued after 21 days to reduce risk of bleeding PT OT evaluation requested Patient will benefit with acute rehab post CVA (2) Anticoagulated on Coumadin: Continue Coumadin INR therapeutic (3) Hypokalemia: Corrected (4) Tobacco use: Patient is asked for strict smoking cessation given acute CVA, patient in agreement to quit (5) MTHFR gene mutation: History of PE On chronic Coumadin anticoagulation -recurrent stroke noted while on therapeutic INR Addition of Plavix ordered by neurology Patient will continue with dual antiplatelets for 21 days along with full anticoagulation with Coumadin for recurrent CVA Aspirin will be discontinued: Patient will need to be indefinitely on Plavix, along with Coumadin (6) Pseudotumor cerebri: On acetazolamide (7) History of pulmonary embolism: On Coumadin INR therapeutic (8) Diabetes mellitus, type II: Insulin sliding scale while in hospital CODE STATUS: Full code DVT prophylaxis continue Coumadin Disposition: Patient is ordered PT OT speech evaluation Will need acute rehab on discharge for acute CVA leading to left-sided hemiparesis Referral made to [facility] service following for discharge planning Possible transfer to [facility] tomorrow if bed available Subjective Persisted left-sided weakness, no headache no chest pain or shortness of breath Had MRI MRA brain today after anesthetic sedation for severe claustrophobia Physical Exam Constitutional: WD/WN, vitals as above no acute distress Eyes: PERRL, conjunctivae normal, anicteric sclerae ENMT: external ear and nose normal, oropharynx normal Neck: trachea midline, no thyromegaly Respiratory: normal respiratory effort, lungs clear to auscultation Cardiovascular: RRR, no murmur, no edema Gastrointestinal (Abdomen): normal bowel sounds, soft, nontender, no hepatosplenomegaly Skin: no rashes, warm and dry Psychiatric: A+Ox3, euthymic affect Results & Data Vital Signs (Past 12 Hours) Vital Signs Temp Pulse Resp BP Pulse Ox 12/30/18 15:02 36.5 C 95 H 16 128/78 95 12/30/18 13:02 80 20 148/76 H 94 12/30/18 07:25 36.5 C 64 16 153/84 H 94 (1) Diabetes mellitus, type II 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
[2018-12-30] MEDS: INSULIN GLARGINE SOLOSTAR 100 UNITS/ML 3 ML PEN SQ SCH (21:11)
[2018-12-30] MEDS: TRAMADOL HCL 50 MG TABLET PO SCH (21:11)
[2018-12-30] MEDS ORDERED: CYCLOBENZAPRINE HCL 10 MG TAB PO PRN (21:44)
[2018-12-31] MEDS: TRAZODONE HCL 50 MG TAB PO PRN (00:02)
[2018-12-31 07:27] LABS: INR 2.2 (0.9-1.1)
[2018-12-31] MEDS: INSULIN ASPART 100 UNITS/ML 3 ML PEN SC SCH ×3 (08:14→17:32)
[2018-12-31] MEDS: FOLIC ACID 1 MG TAB PO SCH (08:55)
[2018-12-31] MEDS: ATORVASTATIN 40 MG TAB PO SCH (08:55)
[2018-12-31] MEDS: POTASSIUM CHLORIDE 20 MEQ TABCR PO SCH (08:55)
[2018-12-31] MEDS: ASPIRIN 81 MG ECTAB PO SCH (08:55)
[2018-12-31] MEDS: CLOPIDOGREL BISULFATE 75 MG TAB PO SCH (08:55)
[2018-12-31] MEDS: PANTOprazole 40 MG TAB PO SCH (08:55)
--- NOTE | 2018-12-31 13:46 | XRay Report ---
XR knee LT 2V routine CLINICAL HISTORY: left knee pain pain COMPARISON: None. DISCUSSION: Moderate degenerative change all major joint compartments. Osteophytic formation within t he medial as well as lateral joint compartments. Minimal osteophytic changes at tibial spines. No significant joint effusion. No evidence of fracture or dislocation. There is no evidence for soft tissue swelling. IMPRESSION: 1. Moderate degenerative change all major joint compartments. 2. No acute bony abnormality. The above report was generated using voice recognition software. It may contain grammatical, syntax or spelling errors. Electronically signed by: Deshawn Levi M.D. 12/31/2018 1:45 PM
--- NOTE | 2018-12-31 13:51 | Neurology Progress Note ---
Date of Service December 31, 2018 Assessment & Plan (1) Acute CVA (cerebrovascular accident): 1. MRI brain with and without- infarct posterior limb right internal capsule as expected 2. continue coumadin for therapeutic INR 2.0-3.0 3. aspirin 81 mg, added plavix 75 mg will continue for 21 days and then plavix for a lifetime 4. PT/OT for discharge needs 5. optimize HTN, HLD, DM LDL < 70 6. strongly urged smoking cessation patient understands this is a high risk fracture she was a 2 ppd smoking for years 7. likely [facility] tomorrow if stable medically -ok to d/c when stable and cleared with PT will sign off for now. arrangement for follow up with neurology Ana Singh MD has been scheduled (2) Left-sided weakness: same as above Supervising Physician Co-Signing Physician Notes I have seen and discussed above patient with Dr Ashwin Michaels, neurology I seen Mrs. Valdes today and discussed her case with Ana Dawson PA-C. She is on the list to go to rehabilitation today and is clinically improving with much greater function in the left upper extremity, diminished spasticity and increased facility of the same extremity and with increased strength in the left lower extremity along with early return of slow rapid repetitive motions. All of this is pure motor without any sensory deficits and is consistent with her small deep small vessel stroke in the posterior limb of the right internal capsule and theoretically should have a reasonable prognosis for return of function but this will take time She is going to be seen by Dr. Ana Singh in our office at the end of January and will continue her triple anticoagulation with Coumadin and Plavix and aspirin for the next 2-1/2 weeks at which point the aspirin will be stopped and the combination of Coumadin and Plavix continued. Neurology is signing off the case today Ashwin Michaels MD Josef Peralta has a PMH HTN, HLD, PE on Coumadin, h/o MTHFR mutation, DM II, pulmonary hypertension, pseudotumor cerebri, sleep apnea, tobacco use presented to ER with complaint of left arm and left leg weakness and was seen 12/25/2018. The previous admission she had 4 days on left arm/leg weakness which lasted approximately 15 minutes and resolved then returned and again her leg felt "funny" and left arm and leg felt weak and associated lightheadedness and resolved after 30 minutes. The symptoms seem to wax and wane and then became more consistent and she had to concentrate to make her arm and leg move. She was to have an MRI brain to evaluate the stroke but had eaten and the MRI was to be arranged as outpatient. Her aspirin was increased from 81 mg to 162 mg daily and coumadin INR between 2.0-3.0. She returned to [facility] on 12/28 with persistent left arm and leg weakness. She states the symptoms started on Saturday. She then started walking to the bathroom with assistance but her knee collapsed and she was on the floor unable to get up. EMS was called and brought her into [facility]. Her plavix 72 mg was added and her aspirin was reduced back to 81 mg. She states the left sided weakness has improved but still difficulty with walking. She is scheduled for MRI and currently NPO per anaesthesia protocol. She was a 2 ppd smoker but has cut down to a ppd. She is on coumadin for hypercoag state and previous PEs. discussed this along with DM, HTN, HLD are all increased risk factors for stroke. She voices an understanding. She is anxious to go to rehab. PT/OT was working with her this am and she was able to lift her arm above her head. denies CP, SOB, abdominal pain, numbness tingling, N, V, swallowing or speech issues, vision changes.+ left sided weakness. 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, deltoids lifts to mid chest left leg lifts against gravity from hip, plantar flex 4+/5 Results & Data Vital Signs (Past 12 Hours) Vital Signs Temp Pulse Resp BP Pulse Ox 12/31/18 12:00 37.1 C 80 21 149/85 H 94 12/31/18 07:55 36.5 C 70 21 156/83 H 92 Laboratory Results Abnormal lab results 12/30/18 12/30/18 12/30/18 Range/Units 13:19 16:49 16:52 PT 19.3 H (9.0-12.0) Seconds INR 2.0 H (0.9-1.1) POC Glucose 126 H 111 H (70-99) 12/30/18 12/31/18 12/31/18 Range/Units 20:59 06:42 07:22 PT 21.0 H (9.0-12.0) Seconds INR 2.2 H (0.9-1.1) POC Glucose 127 H 120 H (70-99) / Range/Units 11:32 PT (9.0-12.0) Seconds INR (0.9-1.1) POC Glucose 145 H (70-99) Diagnostic Findings knee x ray- Moderate degenerative change all major joint compartments. No acute bony abnormality.
[2018-12-31] MEDS: WARFARIN SOD 2.5 MG TAB PO SCH (15:37)
--- NOTE | 2018-12-31 16:17 | Hospitalist Progress Note ---
Date of Service December 31, 2018 Assessment & Plan (1) Acute CVA (cerebrovascular accident): Present on admission with Left side weakness CT head showed 12 mm focus of low attenuation centered in the right internal capsule. This is new from previous scan on 12/25/2018 and likely represents an acute to subacute lacunar infarct. MRI of brain:( done after anesthesiology sedation: As patient has severe claustrophobia) showed Acute/subacute infarct posterior limb right internal capsule. This measures 1.0 x 0.5 cm. MRA head unremarkable Patient is a high risk for CVA due to Hypercoagulable state on Coumadin, Neurology on board recommended plavix and aspirin along with coumadin Then after 21 days aspirin discontinued and continue with plavix and coumadin INR therapeutic at 2.2 today Continue PT/OT Patient will benefit with acute rehab post CVA Follow up with neurology neurology Ana Singh MD (2) Anticoagulated on Coumadin: Continue Coumadin INR therapeutic Monitor PT/INR (3) Hypokalemia: resolv (4) Tobacco use: Counseling on smoking cessation (5) MTHFR gene mutation: History of PE On chronic Coumadin anticoagulation -recurrent stroke noted while on therapeutic INR Addition of Plavix ordered by neurology Patient will continue with dual antiplatelets for 21 days along with full anticoagulation with Coumadin for recurrent CVA Aspirin will be discontinued after 21 days: Patient will need to be indefinitely on Plavix, along with Coumadin (6) Pseudotumor cerebri: On acetazolamide (7) History of pulmonary embolism: On Coumadin INR therapeutic Left Knee pain Xray showed moderate degenerative change all major joint compartments. No acute bony abnormality. Continue pain control (8) Diabetes mellitus, type II: Insulin sliding scale while in hospital Continue monitor BS CODE STATUS: Full code DVT prophylaxis continue Coumadin Disposition: Discharge to [facility] Continue PT/OT Subjective Pt was seen and examined Sitting in chair with no distress Pt said that she worked with therapy today She said that her arm feels tired after walking with therapy she said that she is having tenderness in her left knee due to fall Denies any chest pain, palpitation, dizziness and SOB Physical Exam Physical Exam: General- No acute distress Head- atraumatic Eyes- PERRL, EOMI, ENT- oropharynx clear Neck- supple, no JVD Lungs- clear to auscultation Heart- regular rhythm; no murmur Abdomen- normal bowel sounds, soft, nontender Extremities- left knee pain Neuro- alert, oriented x 3; PERRL, EOMI; no facial palsy; no dysarthria, +decrease strength in Left extremities Skin- warm & dry Results & Data Vital Signs (Past 12 Hours) Vital Signs Temp Pulse Resp BP Pulse Ox 12/31/18 15:14 36.6 C 74 18 116/66 91 12/31/18 12:00 37.1 C 80 21 149/85 H 94 12/31/18 07:55 36.5 C 70 21 156/83 H 92 (1) Diabetes mellitus, type II Diabetes mellitus complication status: with other specified complication Diabetes mellitus jail insulin use: without jail use Qualified Code(s): E11.69 - Type 2 diabetes mellitus with other specified complication
[2018-12-31] MEDS ORDERED: STROKE PATIENT DISCHARGE STA (16:50)
--- NOTE | 2019-01-02 09:10 | Discharge Summary ---
Date of Service December 31, 2018 Admission HPI Per Admitting Provider History obtained from patient and records. Medical history significant for CVA, hypercoagulable state (hx PE/DVT, MTHFR mutation as per records) on Coumadin, hypertension, hyperlipidemia, GERD, pseudotumor cerebri on acetazolamide Rx, FÉLIX, ongoing tobacco abuse. Recent confinement 2 days ago for possible TIA. Patient presented with transient left-sided weakness. Unable to perform MRI during confinement due to patient sedation request for the procedure. Neurology recommended increasing home aspirin dose. Few hours ago, patient noted weakness of the left arm and leg, much worse Patient denies chest pain, S OB, unusual headache symptoms. Compliant with home medications. 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 Admission Exam Per Admitting Provider GENERAL: Comfortable, obese, no respiratory distress SKIN: Normal color, warm HEENT: [place] palpebral conjunctivae, no ptosis, dry buccal mucosa NECK : Supple, short neck, no tenderness CHEST : Decreased breath sounds , no tenderness HEART : RRR, no obvious murmurs ABDOMEN: Some distention, nontender EXTREMITIES : Minimal LE swelling, no LE tenderness, no other conspicuous deformities noted NEUROLOGIC : Coherent, no facial asymmetry; MMTs RUE/RLE 4/5, LUE 3/5, LLE 2/5, no other gross focality Principal Diagnosis Acute CVA with left-sided hemiparesis Hypokalemia Tobacco MTHFR gene mutation Pseudotumor cerebri History of pulmonary embolism Diabetes type 2 Left Knee Pain Discharge Exam General- No acute distress Head- atraumatic Eyes- PERRL, EOMI, ENT- oropharynx clear Neck- supple, no JVD Lungs- clear to auscultation Heart- regular rhythm; no murmur Abdomen- normal bowel sounds, soft, nontender Extremities- left knee pain Neuro- alert, oriented x 3; PERRL, EOMI; no facial palsy; no dysarthria, +decrease strength in Left extremities Skin- warm & dry Discharge Data Allergies Allergy/AdvReac Type Severity Reaction Status Date / Time moxifloxacin Allergy Intermediate CHEST PAIN Verified 12/25/18 21:28 RAPID HEART BEAT HIGH BP RASH Penicillins Allergy Intermediate HIVES Verified 07/11/19 21:28 Sulfa (Sulfonamide Allergy Intermediate HIVES Verified 12/25/18 21:28 Antibiotics) doxycycline AdvReac Intermediate Pseudo Unverified 12/25/18 21:28 tumor cerebri neomycin AdvReac Unknown ITCHY Verified 12/25/18 21:28 prednisone AdvReac Unknown TACHYCARDIA Verified 12/25/18 21:28 DECONGESTANTS AdvReac Unknown TACHYCARDIA Uncoded 12/25/18 21:28 Consultations 12/28/18 06:03 ED Decision to Admit Stat 12/28/18 08:59 Consult Case Management - Discharge Planning Routine Consult Case Management - Discharge Planning Routine Consult Neurology Routine 12/28/18 13:06 Consult Anesthesiology Routine Ordered Studies 12/28/18 05:18 CT head/brain wo con Urgent 12/30/18 05:15 MR angio head wo con Urgent MR brain wo con Routine XR knee LT 2V routine CLINICAL HISTORY: left knee pain pain COMPARISON: None. DISCUSSION: Moderate degenerative change all major joint compartments. Osteophytic formation within the medial as well as lateral joint compartments. Minimal osteophytic changes at tibial spines. No significant joint effusion. No evidence of fracture or dislocation. There is no evidence for soft tissue swelling. IMPRESSION: 1. Moderate degenerative change all major joint compartments. 2. No acute bony abnormality. The above report was generated using voice recognition software. It may contain grammatical, syntax or spelling errors. Electronically signed by: Deshawn Levi M.D. 12/31/2018 1:45 PM MR ANGIOGRAM OF THE BRAIN CLINICAL HISTORY: Strokelike symptoms. COMPARISON STUDY: MRI of the brain performed concurrently on [address] angiogram of the brain dated 12/10/2018. TECHNIQUE: 3-D [id number] MR angiography of the intracranial circulation is performed. 3-D tumble views are created and assessed. IV contrast was not administered for this examination. FINDINGS: The internal carotid arteries are widely patent bilaterally, as are the anterior and middle cerebral arteries. The vertebrobasilar system and posterior cerebral arteries are widely patent. The left vertebral artery is dominant. There is no aneurysm, high-grade stenosis, or focal vessel cutoff seen throughout the intracranial circulation. The brain parenchyma is normal as visualized. IMPRESSION: Unremarkable MR angiogram of the brain. Electronically signed by: Stanislaw Hamilton M.D. 12/30/2018 12:47 PM Dictated: 12/30/18 1245 Transcribed: 12/30/18 1245 MR brain wo con HISTORY: Mental status change cva TECHNIQUE: Multiplanar multisequence MRI of the brain was performed without the use of contrast. COMPARISON STUDY: CT 12/28/2018 FINDINGS: Acute/subacute infarct posterior limb right internal capsule. This measures 1.0 x 0.5 cm. No additional foci of acute ischemic change are noted. Coronal FLAIR images demonstrate multiple small foci of increased signal consistent with moderate chronic small vessel change. The ventricular system is midline. The sella and parasellar regions are unremarkable. IMPRESSION: 1. Acute/subacute infarct posterior limb right internal capsule. 2. Moderate chronic small vessel change throughout both cerebral hemispheres. 3. No additional acute abnormality. The above report was generated using voice recognition software. It may contain grammatical, syntax or spelling errors. Electronically signed by: Deshawn Levi M.D. 12/30/2018 12:49 PM Dictated: 12/30/18 1245 Transcribed: 12/30/181244 SINGLE VIEW CHEST CLINICAL HISTORY: Hypoxia. FINDINGS: An AP, portable, upright chest radiograph is compared to study dated 12/10/2018. The examination is degraded by portable technique and patient rotation. The heart is top normal for projection. There is prominence of the pulmonary vasculature. There is no airspace consolidation or large pleural effusion. No pneumothorax is seen. The skeletal structures are osteopenic. The bony thorax is grossly intact. IMPRESSION: 1. There is prominence of the pulmonary vasculature. Correlate clinically for evidence of mild congestive failure. 2. No airspace consolidation or large pleural effusion is identified. Electronically signed by: Stanislaw Hamilton M.D. 12/28/2018 6:52 AM Dictated: 12/28/18 0650 Transcribed: 12/28/1850 CT SCAN OF THE BRAIN WITHOUT IV CONTRAST CLINICAL HISTORY: Strokelike symptoms. Fall. Left upper and lower extremity weakness. COMPARISON STUDY: CT of the brain dated 12/25/2018. TECHNIQUE: Unenhanced axial CT scan of the brain is performed from the vertex to the skull base. A dose lowering technique was utilized adhering to the principles of ALARA. CT DOSE: 537.48 mGy.cm FINDINGS: Brain parenchyma: There is a 12 mm focus of low attenuation centered in the right internal capsule, which is new from previous. This likely represents an acute to subacute lacunar infarct. There is no hemorrhage, mass effect, or evidence of acute territorial ischemia by CT criteria. Singh-white matter differentiation is preserved. No extra-axial fluid collection is seen. Ventricles, sulci, cisterns: Normal in configuration. Intracranial vasculature: There is atherosclerotic calcification of the cavernous carotid and vertebral arteries. Calvarium: Unremarkable. Sinuses and mastoids: The visualized paranasal sinuses are clear. The mastoid air cells are well pneumatized. Orbits: The bony orbits are grossly intact. IMPRESSION: 1. There is no hemorrhage, mass effect, or evidence of acute territorial ischemia by CT criteria. 2. There is a 12 mm focus of low attenuation centered in the right internal capsule. This is new from previous and likely represents an acute to subacute lacunar infarct. Electronically signed by: Stanislaw Hamilton M.D. 12/28/2018 11:14 AM Dictated: 12/28/18 1111 Transcribed: 12/28/18 1111 Hospital Course (1) Acute CVA (cerebrovascular accident): Present on admission with Left side weakness CT head showed 12 mm focus of low attenuation centered in the right internal capsule. This is new from previous scan on 12/25/2018 and likely represents an acute to subacute lacunar infarct. MRI of brain:( done after anesthesiology sedation: As patient has severe claustrophobia) showed Acute/subacute infarct posterior limb right internal capsule. This measures 1.0 x 0.5 cm. MRA head unremarkable Patient is a high risk for CVA due to Hypercoagulable state on Coumadin, Neurology on board recommended plavix and aspirin along with coumadin Then after 21 days aspirin discontinued and continue with plavix and coumadin INR therapeutic at 2.2 today Continue PT/OT Patient will benefit with acute rehab post CVA Follow up with neurology neurology Ana Singh MD (2) Anticoagulated on Coumadin: Continue Coumadin INR therapeutic Monitor PT/INR (3) Hypokalemia: resolved (4) Tobacco use: Counseling on smoking cessation (5) MTHFR gene mutation: History of PE On chronic Coumadin anticoagulation -recurrent stroke noted while on therapeutic INR Addition of Plavix ordered by neurology Patient will continue with dual antiplatelets for 21 days along with full anticoagulation with Coumadin for recurrent CVA Aspirin will be discontinued after 21 days: Patient will need to be indefinitely on Plavix, along with Coumadin (6) Pseudotumor cerebri: On acetazolamide (7) History of pulmonary embolism: On Coumadin INR therapeutic Left Knee pain Xray showed moderate degenerative change all major joint compartments. No acute bony abnormality. Continue pain control (8) Diabetes mellitus, type II: Insulin sliding scale while in hospital Continue monitor BS CODE STATUS: Full code DVT prophylaxis continue Coumadin Disposition: Discharge to [facility] Continue PT/OT Total Time Total Time Spent Total Time Spent (In Minutes): 35 minutes Total Time Includes: Examination of the Patient, Discharge Planning, Medication Reconciliation, Communication With Other Providers and Other Discharge Plan Discharge Items Patient Disposition: Transfer Inpatient Rehab Fac Reason For Visit: CVA Discharge Diagnosis: Acute CVA with left-sided hemiparesis Condition: Fair Discharge Goals: Decrease discomfort and Therapeutic intervention Activity: As commented below Activity Comment: Continue annual physical therapy occupational therapy at rehab Non-emergency contact: Primary Care Provider Call non-emergency contact if: you have any medication questions Follow-up/Referrals: Christ Dunn DO [Primary Care Provider] - Diet: Carb Consistent or DM2 and Heart Healthy Addtl Provider Instructions: Follow up with your primary care provider once discharge from rehab Follow up with Neurology Dr Ana Singh MD in 2 to 4 weeks Follow up with the coumadin clinic Continue physical and occupational therapy Aspirin 81 mg, Plavix 75 mg daily to be taken with full stomach/meal for 3 weeks Then discontinue aspirin, continue Plavix 75 mg by mouth daily indefinitely Continue Coumadin with goal INR 23 Fall precaution Monitor for any abnormal bleeding such blood in urine and stool Prescriptions: New aspirin [Aspirin Low Dose] 81 mg tablet,delayed release (DR/EC) 81 mg PO DAILY 21 Days Qty: 21 RF: 0 clopidogrel [Plavix] 75 mg tablet 75 mg PO DAILY 90 Days Qty: 90 RF: 0 pantoprazole 40 mg Tablet,Delayed Release (Dr/Ec) 40 mg PO QAM 30 Days Qty: 30 RF: 0 Continued warfarin 5 mg tablet 5 mg PO [id number] RF: 0 warfarin 5 mg tablet 2.5 mg PO .ONCE WEEKLY RF: 0 Januvia 100 mg tablet 100 mg PO DAILY RF: 0 ranitidine HCl 300 mg tablet 300 mg PO HS RF: 0 cyanocobalamin (vitamin B-12) 1,000 mcg Tablet 1,000 mcg PO DAILY RF: 0 furosemide 40 mg tablet 40 mg PO BID RF: 0 atenolol 100 mg tablet 50 mg PO BID RF: 0 acetazolamide 500 mg capsule, extended release 500 mg PO DAILY RF: 0 folic acid 1 mg Tablet 1 mg PO DAILY RF: 0 nystatin 100,000 unit/gram cream 1 applic topical BID PRN (Reason: .GROIN RASH) RF: 0 atorvastatin 40 mg Tablet 40 mg PO QAM 40 Days Qty: 40 RF: 3 amlodipine 5 mg tablet 10 mg PO DAILY RF: 0 Discontinued omeprazole 40 mg capsule,delayed release(DR/EC) 40 mg PO QAM RF: 0 rosuvastatin 20 mg tablet 20 mg PO DAILY RF: 0 aspirin 81 mg tablet,delayed release (DR/EC) 162 mg PO DAILY Qty: 60 RF: 4 Stand-Alone Forms: [facility] Discharge Orders: Discharge Order (Routine); Ordered 12/31/18 Ordered By: Umu Du Skilled Items Patient informed of condition?: Yes DNR: No Discharge Level of Care: Acute rehab Communicable Disease: No Discharge Prognosis: Improving Admission Data Admit Date/Time: 12/28/18 06:55 Attending Provider: Umu Du Admit Provider: Shamar Cannon Primary Care Provider: Christ Dunn Other Providers: Shamar Cannon ; Ashwin Michaels ; Steven De Los Santos ; Elissa Bahena. Service: Telemetry Medical Other Interventions: Discharge Summary Assessment (RN) Last Done: 12/31/18 16:56 DC Date/Time DO NOT enter until pt leaves facility: 12/31/18 18:13
== END 2018-12-31 18:13 | DRG 65 ==
LOC: ED 05:05 → 2N 06:55 → SUATTDRO 06:55 → 2N 08:10